=== PATIENT | male | born 1950 | race Caucasian/White ===

== ENCOUNTER → 2016-04-17 | Outpatient (CLI) | payer MEDICARE ==
[2016-04-17 13:07] LABS: Basophils # (A) 0.1 k/uL (0-0.2); Basophils % (A) 1 %; CH 31.1; CHCM 34.1; Eosinophils # (A) 0.4 k/uL (0-0.7); Eosinophils % (A) 4 %; HDW 2.68; HGB 15.2 gm/dL (13.0-17.5); Luc # (Auto) 0.26; Luc % (Auto) 3; Lymphocytes # (A) 2.4 k/uL (1.0-4.8); Lymphocytes % (A) 27 %; MCH 30.9 pg (25.0-35.0); MCHC 33.8 g/dL (31.0-37.0); MCV 91.5 fL (80.0-100.0); Mean Platelet Volume 6.7; Monocytes # (A) 0.5 k/uL (0-1.0); Monocytes % (A) 5 %; Neutrophils # (A) 5.3 k/uL (1.3-7.7); Neutrophils % (A) 60 %; RBC 4.91 m/uL (4.30-5.90); RDW 12.6 % (11.5-15.5); WBC 8.8 k/uL (3.8-10.6); WBC (Perox) 9.11
[2016-04-17 13:24] LABS: Blood Urea Nitrogen 18 mg/dL (9-20); Non-African American GFR(MDRD) >60 (>60 ml/min/1.73 sqM)
== END | disposition home or self-care (01) ==
LOC: LABWHC1 12:27
PROVIDERS: ATTEND Surgery
DX: K57.92 Diverticulitis of intestine, part unspecified, without perforation or abscess without bleeding (principal)
CPT/HCPCS: 36415; 82565; 84520; 85025

== ENCOUNTER → 2016-04-18 | Outpatient (CLI) | payer MEDICARE ==
--- NOTE | 2016-04-18 14:22 | CT ---
EXAMINATION TYPE: CT abdomen pelvis w con DATE OF EXAM: 04/18/2016 2:06 PM COMPARISON: NONE HISTORY: 65-year-old male with intermittent abdominal pain x1 year, diverticulitis. TECHNIQUE: Contiguous axial scanning of the abdomen and pelvis following administration of 100 ml Omn ipaque 300 IV contrast. Delayed images through the kidneys and coronal/sagittal reconstructions perf ormed. CT DLP: 1575 mGycm Automated exposure control for dose reduction was used. FINDINGS: Heart is normal size with upper cardial effusion. Lung bases clear without pleural effusion. Liver is mildly enlarged at 18.0 cm craniocaudal. There is diffuse low attenuation of the hepatic par enchyma with some fatty sparing along the gallbladder fossa. Portal venous system is patent. No bilia ry ductal dilatation. Gallbladder, adrenal glands, and pancreas appear within normal limits. Tiny subcentimeter hypodensiti es within the peripheral spleen are too small for accurate CT characterization, possible tiny cysts. Spleen otherwise unremarkable. No dilated small bowel, free fluid, or free air. There may be mild wall thickening of proximal jejunal loops, for example, axial image 41, 47, and 49. No small bowel dilatation, free fluid, or free air. Normal appendix. Oral contrast has progressed to the splenic flexure. There is mild left hemicolonic diverticulosis. Mild focal rounded area of fat stranding along the lef t lateral aspect of the lower descending colon, axial image 59. Small fatty umbilical hernia. No mesenteric or retroperitoneal lymphadenopathy. There is soft tissue reticulation and increased soft tissue density within the subcutaneous fat of th e lower abdomen on either side suggesting subcutaneous injections. Very mild circumferential bladder wall thickening is noted. Prostate gland is enlarged at 5.0 cm wide . Small fat-containing inguinal hernias on either side. No abnormal fluid collection in the pelvis or pelvic lymphadenopathy seen. Bones: Post surgical changes of L2-L3 posterior fusion on the right with interbody fusion as well. No osseous destructive process. IMPRESSION: 1. MILD HEPATOMEGALY. ADDITIONAL HEPATIC STEATOSIS. CORRELATE WITH LFT's, LIPID PROFILE, AND PATIENT RISK FACTORS. 2. SOME CIRCUMFERENTIAL THICKENING OF PROXIMAL JEJUNAL LOOPS COULD BE SECONDARY TO UNDERDISTENTION OR ENTERITIS. 3. SMALL FOCAL ROUNDED AREA OF INFLAMMATION ALONG THE LEFT LATERAL ASPECT OF THE LOWER DESCENDING COL ON. FINDINGS SUSPICIOUS FOR EPIPLOIC APPENDAGITIS. 4. MILD LEFT HEMICOLONIC DIVERTICULOSIS WITHOUT ACUTE DIVERTICULITIS. 5. PROSTATOMEGALY (5.0 CM WIDE). MILD CIRCUMFERENTIAL BLADDER WALL THICKENING COULD REPRESENT BLADDER WALL HYPERTROPHY OR CYSTITIS.
== END | disposition home or self-care (01) ==
LOC: RADCTMAIN 13:19
PROVIDERS: ATTEND Surgery
DX: R16.0 Hepatomegaly, not elsewhere classified (principal); K76.0 Fatty (change of) liver, not elsewhere classified; K59.8 Other specified functional intestinal disorders; K52.9 Noninfective gastroenteritis and colitis, unspecified; K57.90 Diverticulosis of intestine, part unspecified, without perforation or abscess without bleeding; N32.89 Other specified disorders of bladder
CPT/HCPCS: 74177; Q9967

== ENCOUNTER → 2016-06-05 | Outpatient (CLI) | payer MEDICARE ==
[2016-06-05 14:33] LABS: Basophils # (A) 0.1 k/uL (0-0.2); Basophils % (A) 1 %; CH 31.5; CHCM 34.4; Eosinophils # (A) 0.4 k/uL (0-0.7); Eosinophils % (A) 6 %; HCT 39.2 % (39.0-53.0); HGB 13.5 gm/dL (13.0-17.5); Luc # (Auto) 0.17; Luc % (Auto) 2; Lymphocytes # (A) 2.1 k/uL (1.0-4.8); Lymphocytes % (A) 28 %; MCH 31.6 pg (25.0-35.0); MCHC 34.3 g/dL (31.0-37.0); Mean Platelet Volume 7.9; Monocytes # (A) 0.3 k/uL (0-1.0); Monocytes % (A) 4 %; Neutrophils # (A) 4.4 k/uL (1.3-7.7); Neutrophils % (A) 59 %; RBC 4.26 m/uL (4.30-5.90); RDW 12.5 % (11.5-15.5); WBC 7.5 k/uL (3.8-10.6); WBC (Perox) 7.61
== END | disposition home or self-care (01) ==
LOC: LABWHC1 13:54
PROVIDERS: ATTEND Surgery
DX: R19.7 Diarrhea, unspecified (principal)
CPT/HCPCS: 36415; 85025; 87324

== ENCOUNTER → 2016-08-16 | Outpatient (CLI) | payer MEDICARE ==
[2016-08-16 07:56] LABS: Basophils # (A) 0.1 k/uL (0-0.2); Basophils % (A) 1 %; CH 31.7; CHCM 35.3; Eosinophils # (A) 0.5 k/uL (0-0.7); Eosinophils % (A) 7 %; HCT 42.8 % (39.0-53.0); HDW 2.85; Luc # (Auto) 0.15; Luc % (Auto) 2; Lymphocytes # (A) 1.9 k/uL (1.0-4.8); Lymphocytes % (A) 27 %; MCH 31.5 pg (25.0-35.0); Mean Platelet Volume 6.9; Monocytes # (A) 0.3 k/uL (0-1.0); Monocytes % (A) 5 %; Neutrophils # (A) 4.2 k/uL (1.3-7.7); Neutrophils % (A) 59 %; RBC 4.76 m/uL (4.30-5.90); RDW 12.8 % (11.5-15.5); WBC 7.1 k/uL (3.8-10.6); WBC (Perox) 7.19
[2016-08-16 08:10] LABS: ALT 43 U/L (21-72); AST 25 U/L (17-59); Alkaline Phosphatase 87 U/L (38-126); Anion Gap 10 mmol/L; Blood Urea Nitrogen 17 mg/dL (9-20); Calcium 9.1 mg/dL (8.4-10.2); Carbon Dioxide 26 mmol/L (22-30); Chloride 105 mmol/L (98-107); Cholesterol 165 mg/dL (<200); Glucose 156 mg/dL (74-99); HDL Cholesterol 38 mg/dL (40-60); Non-African American GFR(MDRD) >60 (>60 ml/min/1.73 sqM); Potassium 4.9 mmol/L (3.5-5.1); Sodium 141 mmol/L (137-145); Total Bilirubin 0.5 mg/dL (0.2-1.3); Total Protein 7.1 g/dL (6.3-8.2); Triglycerides 315 mg/dL (<150)
[2016-08-16 11:39] LABS: Hemoglobin A1C 7.1 % (4.2-6.1)
== END | disposition home or self-care (01) ==
LOC: LABWHC1 07:31
PROVIDERS: ATTEND Family Medicine
DX: E11.65 Type 2 diabetes mellitus with hyperglycemia (principal); E83.41 Hypermagnesemia; I10 Essential (primary) hypertension
CPT/HCPCS: 36415; 80053; 80061; 83036; 84443; 85025

== ENCOUNTER → 2016-10-24 | Outpatient (CLI) | payer MEDICARE ==
--- NOTE | 2016-10-24 16:02 | CONS ---
DATE OF CONSULTATION: 10/24/16 65 year old gentleman has been evaluated in the Sleep Center for possible obstructive sleep apnea hypopnea syndrome. History of present illness/Sleep wake evaluation: SLEEP SCHEDULE: The patient usual sleep schedule at the present time, ( ) he is retired from 9:30 p.m until 6:30 a.m. FALLING ASLEEP: No problems with falling asleep. He has t.v. set in bedroom. DURING SLEEP: Sleeps in different positions with his . According to her, he snores and has episodes of stopped breathing during sleep. He is grinding teeth, wakes up with dry mouth, palpitations, heartburn, gasping for air, restless legs, sweating, nocturia up to three times at night. DURING THE DAY/WAKE STATE: In the morning, the patient wakes up tired, has difficulties to pay attention, falling asleep during the day, worries about his sleep, ( ) irritability, claustrophobia. [place] sleep scale significantly increased to 22. Past medical history positive for diabetes, hypertension, acid reflux, ulcers in the stomach with bleeding, nasal breathing problems. Past surgical history: L2, L3 fusion surgery, rotator cuff surgery. Medications: 1. Januvia. 2. Glucophage. 3. Lisinopril. 4. Omeprazole. 5. Humalog. 6. Levemir. 7. Baby aspirin. 8. Flonase. 9. Nicorette. Social history: Negative for smoking. Alcohol consumption very rarely. Family history: Hypertension, angina, heart problems, hyperlipidemia, arthritis , cancer, diabetes, thyroid problems, restless legs. REVIEW OF SYSTEMS: No fevers. No double vision. No recent chest pain. No shortness of breath. No abdominal pain. No bleeding episodes. No blood in urine. No seizure episodes. During physical exam, 55 year old gentleman without distress. BP 144 /71. HR 68, RR 16, height 5 feet 4 inches, weight 216. BMI 37. Neck 16.5 inches in circumference. Temperature 98.2. Oxygen saturation 96%. Oropharynx extremely low position of soft palate. Retrognathia 2 to 3 mm. Restriction of nasal bleeding. Abdomen obese. Extremities very minimal up to 1+ ankle edema on the left. NECK: Supple. No JVD. Thyroid is not palpable. LUNGS: Clear to auscultation and percussion. Good air exchange. No wheezing or rhonchi. HEART: S1, S2 regular. No murmurs, gallops or rubs. TURNAROUND ENGINEER: Awake, alert and oriented times three. Cranial nerves 2 thru 7 intact. There is no fasciculation or atrophy noted. No focal deficits observed. Other physical examination normal. IMPRESSION: 1. Snoring, witness episodes of stopped breathing during sleep. Extremely low position of soft palate. Significant excessive daytime sleepiness, wide neck, obstructive sleep apnea, hypopnea syndrome. 2. Obesity, BMI 37.0. 3. Diabetes mellitus. 4. Hypertension. 5. Acid reflux. 6. History of stomach ulcers with bleeding. 7. Restriction of nasal breathing. 8. Status post L2, L3 fusion surgery. 9. Status post rotator cuff surgery on the right side about 10 years ago. PLAN: 1. Polysomnography for evaluation of patient's breathing during sleep. 2. CPAP/BIPAP titration if sleep study confirms obstructive sleep apnea/ hypopnea syndrome. 3. Preferable position during sleep on the side. 4. No driving if feels any sleepiness. Patient is aware of civil and criminal liability for unsafe driving. 5. I will see the patient for follow up visit to explain the results of the testing and following plan. Sincerely, Leonides Anton MD, PhD, FAASM. Diplomat of [place] [employer]. Sleep Medicine Board by [place] [employer] [place] [employer]. Manager Heavy Duty of [facility] [place]. VIDA
== END | disposition home or self-care (01) ==
LOC: SLEEP 14:18
PROVIDERS: ATTEND Internal Medicine
DX: G47.33 Obstructive sleep apnea (adult) (pediatric) (principal); G47.10 Hypersomnia, unspecified; E11.9 Type 2 diabetes mellitus without complications; I10 Essential (primary) hypertension; K21.9 Gastro-esophageal reflux disease without esophagitis; E66.9 Obesity, unspecified; Z68.37 Body mass index [BMI] 37.0-37.9, adult; Z98.1 Arthrodesis status; Z79.899 Other long term (current) drug therapy; Z79.4 Long term (current) use of insulin; Z79.82 Long term (current) use of aspirin
CPT/HCPCS: 99211

== ENCOUNTER 2016-11-28 23:02 | Emergency (ER) | payer MEDICARE ==
[2016-11-28] MEDS ORDERED: HYDROmorphone 1 MG/ML 1 ML SYRINGE IVP STA (23:14)
[2016-11-28] MEDS ORDERED: ONDANSETRON 4 MG/2 ML VIAL IVP STA (23:14)
[2016-11-28] MEDS ORDERED: KETOROLAC 30 MG/ML 1 ML VIAL IVP STA (23:14)
[2016-11-28] MEDS ORDERED: SODIUM CHLORIDE 0.9% 1,000 ML IV STA (23:14)
[2016-11-28 23:50] LABS: Basophils # (A) 0.1 k/uL (0-0.2); Basophils % (A) 0 %; CH 32.1; CHCM 35.1; Eosinophils # (A) 0.4 k/uL (0-0.7); Eosinophils % (A) 3 %; HCT 42.1 % (39.0-53.0); HDW 2.73; HGB 14.2 gm/dL (13.0-17.5); Luc # (Auto) 0.16; Luc % (Auto) 1; Lymphocytes # (A) 2.4 k/uL (1.0-4.8); Lymphocytes % (A) 17 %; MCH 30.9 pg (25.0-35.0); MCHC 33.6 g/dL (31.0-37.0); MCV 91.9 fL (80.0-100.0); Mean Platelet Volume 7.8; Monocytes # (A) 0.6 k/uL (0-1.0); Monocytes % (A) 4 %; Neutrophils # (A) 10.3 k/uL (1.3-7.7); Neutrophils % (A) 74 %; RBC 4.58 m/uL (4.30-5.90); RDW 14.3 % (11.5-15.5); WBC 13.9 k/uL (3.8-10.6); WBC (Perox) 13.25
[2016-11-29 00:04] LABS: ALT 81 U/L (21-72); AST 61 U/L (17-59); Alkaline Phosphatase 84 U/L (38-126); Amylase 35 U/L (30-110); Anion Gap 14 mmol/L; Blood Urea Nitrogen 15 mg/dL (9-20); Calcium 8.9 mg/dL (8.4-10.2); Carbon Dioxide 21 mmol/L (22-30); Chloride 108 mmol/L (98-107); Glucose 248 mg/dL (74-99); Non-African American GFR(MDRD) >60 (>60 ml/min/1.73 sqM); Potassium 4.1 mmol/L (3.5-5.1); Sodium 143 mmol/L (137-145); Total Bilirubin 0.4 mg/dL (0.2-1.3); Total Protein 6.6 g/dL (6.3-8.2)
--- NOTE | 2016-11-29 00:18 | XR ---
EXAM: XR Abdomen Complete, 2 Views CLINICAL HISTORY: Abdominal pain. TECHNIQUE: Frontal view of the abdomen/pelvis with upright view of the abdomen. COMPARISON: CT dated 04/18/2016. FINDINGS: Intraperitoneal space: No evidence of free intraperitoneal air. Gastrointestinal tract: Scattered bowel gas in a nonspecific pattern. No radiographic evidence of small bowel obstruction. Small to moderate amount of stool in the colon. Bones/joints: Right-sided posterior fixation hardware at L3-4. IMPRESSION: No radiographic evidence of small bowel obstruction or free intraperitoneal air.
[2016-11-29 00:51] LABS: Appearance,Urine Cloudy (Clear); Bilirubin,Urine Negative (Negative); Glucose,Urine (UA) 4+ (Negative); Ketones,Urine Trace (Negative); Leukocyte Esterase,Urine Negative (Negative); Mucus,Urine Rare /hpf; Nitrite,Urine Negative (Negative); Particle Count 5128; Protein,Urine 1+ (Negative); RBC,Urine 105 /hpf (0-5); Specific Gravity,Urine 1.024 (1.001-1.035); Squamous Epithelial Cell,Urine <1 /hpf (0-4); UA Billing (MACRO vs. MICRO) MICRO; Urobilinogen,Urine <2.0 mg/dL (<2.0); WBC,Urine 2 /hpf (0-5)
--- NOTE | 2016-11-29 00:59 | ED ---
Abdominal Pain HPI - General Chief Complaint: Abdominal Pain Stated Complaint: Nausea/Back Pain Time Seen by Provider: 11/28/16 23:11 Source: patient, RN notes reviewed Mode of arrival: wheelchair Limitations: no limitations - History of Present Illness Initial Comments: 65-year-old male presents emergency Department chief complaint of right flank pain. Patient states that he had some nausea yesterday and developed pain today. Patient states he has a history kidney stones and feels very similar. Patient states pain is in his right flank area of his right lower. Patient denies any fever, chills. He did have some nausea vomiting. Denies any diarrhea, constipation. He states his urine has been darker than usual and more consistent when he has a stone. Patient denies any chest pain or shortness breath. Patient states nothing makes pain feel better or worse. - Related Data Previous Rx's Medication Instructions Recorded Hydrocodone/Acetaminophen [[place] 1 tab PO Q6HR PRN #20 tab 11/29/16 5-325] Ondansetron Odt [Zofran Odt] 4 mg PO Q8HR PRN #10 tab 11/29/16 Tamsulosin [Flomax] 0.4 mg PO DAILY #7 cap 11/29/16 Allergies Allergy/AdvReac Type Severity Reaction Status Date / Time No Known Allergies Allergy Verified 11/28/16 23:09 Review of Systems ROS Statement: Those systems with pertinent positive or pertinent negative responses have been documented in the HPI. ROS Other: All systems not noted in ROS Statement are negative. Past Medical History Past Medical History: Diabetes Mellitus, Hypertension Additional Past Medical History / Comment(s): kidney stones History of Any Multi-Drug Resistant Organisms: None Reported Past Surgical History: Back Surgery Additional Past Surgical History / Comment(s): left shoulder Past Psychological History: No Psychological Hx Reported Smoking Status: Never smoker Past Alcohol Use History: None Reported Past Drug Use History: None Reported General Exam Limitations: no limitations General appearance: alert, in no apparent distress Head exam: Present: atraumatic, normocephalic, normal inspection Respiratory exam: Present: normal lung sounds bilaterally. Absent: respiratory distress, wheezes, rales, rhonchi, stridor Cardiovascular Exam: Present: regular rate, normal rhythm, normal heart sounds. Absent: systolic murmur, diastolic murmur, rubs, gallop, clicks GI/Abdominal exam: Present: soft, normal bowel sounds. Absent: distended, tenderness, guarding, rebound, rigid Back exam: Present: CVA tenderness (R) (minimal). Absent: CVA tenderness (L) Course Vital Signs 11/28/16 23:02 Temperature 97.7 F Pulse Rate 47 L Respiratory 18 Rate Blood Pressure 183/81 O2 Sat by Pulse 98 Oximetry Medical Decision Making - Medical Decision Making 65-year-old male presented emergency from for right flank pain. Patient has a history kidney stones. Patient does have hematuria noted on urinalysis. There is no ddefinite stone on x-ray though his symptoms are consistent with ureteral calculi. Patient is improved after pain medication. Patient's vitals are stable. Patient be discharged with pain medication. Return parameters were discussed. - Lab Data Result diagrams: 11/28/16 23:35 11/28/16 23:35 Lab Results 11/28/16 11/28/16 11/29/16 Range/Units 23:35 23:35 00:28 WBC 13.9 H (3.8-10.6) k/uL RBC 4.58 (4.30-5.90) m/uL Hgb 14.2 (13.0-17.5) gm/dL Hct 42.1 (39.0-53.0) % MCV 91.9 (80.0-100.0) fL MCH 30.9 (25.0-35.0) pg MCHC 33.6 (31.0-37.0) g/dL RDW 14.3 (11.5-15.5) % Plt Count 172 (150-450) k/uL Neutrophils % 74 % Lymphocytes % 17 % Monocytes % 4 % Eosinophils % 3 % Basophils % 0 % Neutrophils # 10.3 H (1.3-7.7) k/uL Lymphocytes # 2.4 (1.0-4.8) k/uL Monocytes # 0.6 (0-1.0) k/uL Eosinophils # 0.4 (0-0.7) k/uL Basophils # 0.1 (0-0.2) k/uL Sodium 143 (137-145) mmol/L Potassium 4.1 (3.5-5.1) mmol/L Chloride 108 H (98-107) mmol/L Carbon Dioxide 21 L (22-30) mmol/L Anion Gap 14 mmol/L BUN 15 (9-20) mg/dL Creatinine 0.90 (0.66-1.25) mg/dL Est GFR (MDRD) Af Amer >60 (>60 ml/min/1.73 sqM) Est GFR (MDRD) Non-Af >60 (>60 ml/min/1.73 sqM) Glucose 248 H (74-99) mg/dL Calcium 8.9 (8.4-10.2) mg/dL Total Bilirubin 0.4 (0.2-1.3) mg/dL AST 61 H (17-59) U/L ALT 81 H (21-72) U/L Alkaline Phosphatase 84 (38-126) U/L Total Protein 6.6 (6.3-8.2) g/dL Albumin 4.1 (3.5-5.0) g/dL Amylase 35 (30-110) U/L Lipase 101 (23-300) U/L Urine Color Yellow Urine Appearance Cloudy (Clear) Urine pH 5.0 (5.0-8.0) Ur Specific [place] 1.024 (1.001-1.035) Urine Protein 1+ H (Negative) Urine Glucose (UA) 4+ H (Negative) Urine Ketones Trace H (Negative) Urine Blood Large H (Negative) Urine Nitrite Negative (Negative) Urine Bilirubin Negative (Negative) Urine Urobilinogen <2.0 (<2.0) mg/dL Ur Leukocyte Esterase Negative (Negative) Urine RBC 105 H (0-5) /hpf Urine WBC 2 (0-5) /hpf Ur Squamous Epith Cells <1 (0-4) /hpf Urine Mucus Rare H (None) /hpf Disposition Clinical Impression: Kidney stone, Hematuria, Right flank pain Disposition: HOME SELF-CARE Condition: Stable Instructions: Kidney Stones (ED) Additional Instructions: Please return to the Emergency Department if symptoms worsen or any other concerns. Prescriptions: Hydrocodone/Acetaminophen [[place] 5-325] 1 tab PO Q6HR PRN #20 tab PRN Reason: Pain Ondansetron Odt [Zofran Odt] 4 mg PO Q8HR PRN #10 tab PRN Reason: Nausea Tamsulosin [Flomax] 0.4 mg PO DAILY #7 cap Referrals: Areli Owens MD [Primary Care Provider] - 1-2 days Time of Disposition: 00:58
[2016-11-29] MEDS ORDERED: TAMSULOSIN 0.4 MG CAP.ER.24H PO STA (01:01)
[2016-11-29] MEDS ORDERED: HYDROmorphone 1 MG/ML 1 ML SYRINGE IVP STA (01:02)
[2016-11-29 01:21] VITALS: BP 165/83; PULSE 52; RESP 16; TEMP 98
== END 2016-11-29 01:31 | disposition home or self-care (01) ==
LOC: EC 23:02
DX: N20.0 Calculus of kidney (principal)
CPT/HCPCS: 36415; 80053; 82150; 83690; 85025; 81001; 74000; 99284; 96374; 96375 ×2; 96376; 96361; J2405; J1885; J1170 ×2

== ENCOUNTER → 2018-03-25 | Outpatient (CLI) | payer MEDICARE ==
--- NOTE | 2018-03-25 16:41 | PN ---
PROGRESS NOTE DATE OF SERVICE: 03/25/2018. 67-year-old gentleman has been followed in Sleep Center for treatment of obstructive sleep apnea-hypopnea syndrome. The patient continued to use his CPAP equipment every night for the whole night. He reports that sometimes he has leak from his full face mask from the area of nasal breach. He does feel sleepy during the day. [place] Sleepiness Scale significantly increased to 20 and he fell asleep today while in the waiting area. I checked his CPAP unit. CPAP pressure is 13.6 cm of water. Usage is 25/30 nights and 24/30 nights more than 4 hours. Average usage is 6.8 hours. Leak is only 5 L/minute, but patient reported that as soon as he feels the leak, he right away adjusting his mask. Apnea-hypopnea index is 3.1, which is absolutely normal. MEDICATIONS: Glucophage, Januvia, metformin, lisinopril, omeprazole, Humalog, baby aspirin, Levemir, Flonase. PHYSICAL EXAM: Patient in no distress. BP 127/82, HR 92, RR 16, height 64 inches, weight 218.6 pounds, body mass index 37.4. Weight is about 3 pounds more than 1 year ago. Temperature 98.3, oxygen saturation at room air 94% on room air. Oropharynx extremely low position of soft palate. ABDOMEN: Obese. Neck Supple, no JVD. Thyroid is not palpable. LUNGS Clear to percussion and to auscultation. Good air exchange. No wheezing or rhonchi. HEART S1, S2 regular. No murmurs, gallops, or rubs. ABDOMEN: Obese. Soft and nontender. Bowel sounds are present. No organomegaly appreciated. EXTREMITIES No clubbing or cyanosis. MANAGEMENT PLANNER Awake, alert, and oriented X3. Cranial nerves 2 to 7 intact. There is no fasciculation or atrophy. noted. No focal deficits observed. IMPRESSION: 1. Obstructive sleep apnea-hypopnea syndrome. The patient demonstrated great compliance with treatment benefitting from treatment. 2. Excessive daytime sleepiness. [place] Sleepiness Scale increased to 20 even while patient is using his CPAP equipment every night. Differential diagnosis should include additional diagnosis of hypersomnia. 3. Obesity, body mass index 37.4. 4. Diabetes mellitus. 5. Hypertension. 6. Acid reflux. 7. History of peptic ulcer disease. 8. Severe periodic limb movements during titration and during diagnostic night. PLAN: 1. Continue treatment with CPAP every night. 2. We will fit patient with a different type of full-face mask Dream Wear. 3. I will start the patient on Mirapex smallest dose at bedtime for prevention of periodic limb movements, which possibly could be the reason for his daytime sleepiness. 4. No driving if feeling sleepiness. 5. If patient will continue to have sleepiness during the day, we may consider to proceed with multiple sleep latency test for objective evaluation of his sleepiness and subsequently with treatment with small amount of daytime alerting agent. Thank you very much for allowing me to participate in management of your patient. Sincerely, Leonides Anton MD, PhD, FAASM Diplomat of [place] [employer] [place] [employer] Stave Bolt Equalizer of [facility] [place] DONNA / PEBBLES: [id number] /
== END | disposition home or self-care (01) ==
LOC: SLEEP 14:51
PROVIDERS: ATTEND Internal Medicine
DX: G47.33 Obstructive sleep apnea (adult) (pediatric) (principal); E66.9 Obesity, unspecified; E11.9 Type 2 diabetes mellitus without complications; I10 Essential (primary) hypertension; K21.9 Gastro-esophageal reflux disease without esophagitis; G47.61 Periodic limb movement disorder; Z68.37 Body mass index [BMI] 37.0-37.9, adult; Z99.89 Dependence on other enabling machines and devices; Z87.11 Personal history of peptic ulcer disease; Z79.84 Long term (current) use of oral hypoglycemic drugs; Z79.899 Other long term (current) drug therapy; Z79.4 Long term (current) use of insulin; Z79.82 Long term (current) use of aspirin

== ENCOUNTER → 2019-04-01 | Outpatient (CLI) | payer BC, MEDICARE ==
--- NOTE | 2019-04-01 16:13 | PN ---
PROGRESS NOTE DATE OF SERVICE: 04/01/2019 This patient is a 68-year-old gentleman who has been followed in Sleep Center for treatment of obstructive sleep apnea-hypopnea syndrome. Patient continues to use his CPAP equipment every night for the whole night. Sometimes he has episodes of snoring and he remembers episodes of awakenings from sleep . [place] Sleepiness Scale today is 15. I checked his CPAP unit. Range of the pressure is from 7.2 to 15 cm of water with average pressure 13.2 cm of water. Leak is only 4 L/minute. Usage is 30/30 nights for more than 4 hours, with average usage is 7.5 hours. Apnea-hypopnea index is only 2.0 for the last month, which is absolutely normal. For the last year, usage is 345/365 nights. Leak is 2 L/minute. Apnea-hypopnea index is again 2.5, which is perfect. MEDICATIONS: 1. Glucophage. 2. Januvia. 3. Metformin. 4. Lisinopril. 5. Omeprazole. 6. Humalog. 7. Levemir. 8. Baby aspirin. 9. Flonase. PHYSICAL EXAMINATION: GENERAL: A pleasant patient in no distress. VITAL SIGNS: BP 155/81, HR 61, RR 16. Height 5 feet 5 inches, weight 231.0, body mass index 38.4. Temperature 98.5. HEENT: PERRLA, EOMI. Evaluation of oropharynx showed tongue protrudes midline. Extremely low position of soft palate. Mallampati IV. NECK: Supple. No JVD. Thyroid is not palpable. LUNGS: Clear to percussion and to auscultation. Good air exchange. No wheezing or rhonchi. HEART: S1, S2 regular. No murmurs, gallops or rubs. ABDOMEN: Slightly obese. EXTREMITIES: No clubbing or cyanosis. NEUROPSYCHOLOGIST: Awake, alert, and oriented X3. Cranial nerves 2 to 7 intact. There is no fasciculation or atrophy. noted. No focal deficits observed. IMPRESSION: 1. Obstructive sleep apnea-hypopnea syndrome. Patient has demonstrated great compliance with treatment, benefitting from treatment. 2. Some excessive daytime sleepiness by [place] Sleepiness Scale, and it also has been present during his previous visit. 3. Obesity. 4. Diabetes mellitus. 5. Hypertension. 6. Acid reflux. 7. History of peptic ulcer disease. 8. Severe periodic limb movements during diagnostic night and titration night. PLAN: 1. Patient will continue to use CPAP equipment every night. 2. I will increase maximal pressure to 16 cm of water. 3. Losing weight. (The patient's weight increased by about 13 pounds since his previous visit.). 4. Sleep hygiene with regular time in bed for at least 7-1/2 hours. 5. If the patient continues to have symptoms of excessive daytime sleepiness, we will consider proceeding with a CPAP night followed by a multiple sleep latency test for objective evaluation of patient's symptoms of excessive daytime sleepiness, and then possibly treatment with medication for that. Thank you very much for allowing me to participate in the management of your patient. Sincerely, Leonides Anton MD, PhD, FAASM Diplomat of [place] [employer] [place] [employer] Reception Manager of [facility] [place] MMODL / YOLYN: [phone] /
== END | disposition home or self-care (01) ==
LOC: SLEEP 14:54
PROVIDERS: ATTEND Internal Medicine
DX: G47.33 Obstructive sleep apnea (adult) (pediatric) (principal); E11.9 Type 2 diabetes mellitus without complications; I10 Essential (primary) hypertension; K21.9 Gastro-esophageal reflux disease without esophagitis; E66.9 Obesity, unspecified; Z87.19 Personal history of other diseases of the digestive system; Z99.89 Dependence on other enabling machines and devices; Z79.891 Long term (current) use of opiate analgesic; Z79.899 Other long term (current) drug therapy; Z79.82 Long term (current) use of aspirin; Z79.4 Long term (current) use of insulin; Z79.84 Long term (current) use of oral hypoglycemic drugs

== ENCOUNTER → 2020-01-20 | Outpatient (CLI) | payer MEDICARE ==
--- NOTE | 2020-01-20 12:09 | SFUN ---
SLEEP CENTER FOLLOW UP NOTE DATE OF SERVICE: 01/20/2020 A 69-year-old gentleman who has been followed in the Sleep Center for treatment of obstructive sleep apnea-hypopnea syndrome. Patient continued to use CPAP equipment, but referred that sometimes his machine stopped in the middle of the night, even while using his machine he continued to feel significant sleepiness. [place] Sleepiness Scale today is a very high range of 21. I checked his CPAP unit. Range of the pressure from 7.6-14.8 with an average pressure is 12.7, usage /30 nights and 20/30 nights for more than 4 hours with leak 10 L/minute. Apnea-hypopnea index only 1.1, which is absolutely normal. MEDICATIONS: Glucophage, Januvia, metformin, lisinopril, omeprazole, Humalog, Levemir, Flonase. PHYSICAL EXAM: gentleman without distress, BP 120/66, HR 58, RR 16, height 5, 5, weight 230, which is about the same as 1 year ago. BMI 38.1, temperature 97.9, oxygen saturation at room air 97%. OROPHARYNX: Extremely low position of soft palate. Mallampati 4. ABDOMEN: Obese. NECK: Supple, no JVD. Thyroid is not palpable. LUNGS: Clear to percussion and to auscultation. Good air exchange. No wheezing or rhonchi. HEART: S1, S2 regular. No murmurs, gallops, or rubs. EXTREMITIES: No clubbing or cyanosis. PATIENT EXPERIENCE COORDINATOR: Awake, alert, and oriented X3. Cranial nerves 2 to 7 intact. There is no fasciculation or atrophy. noted. No focal deficits observed. IMPRESSION: 1. Obstructive sleep apnea-hypopnea syndrome in moderate range. I reviewed results of previous sleep study. Apnea-hypopnea index 18. Patient demonstrated borderline compliance with treatment, benefitting from treatment. 2. Patient continued to feel sleepiness during the day. [place] Sleepiness Scale is 21, which is in very high range. Differential diagnosis include additional diagnosis of hypersomnia. 3. Obesity. 4. Diabetes mellitus. 5. Hypertension. 6. Acid reflux. 7. History of peptic ulcer disease. 8. Severe periodic limb movements during the previous sleep study. PLAN: 1. Patient will continue to use PAP equipment every night for the whole night. 2. Sleep hygiene with regular time in bed for at least 7-1/2 to 8 hours. 3. Precautions related to driving. No driving if feeling sleepiness. 4. I will maintain all necessary prescription for PAP supplies including mask, tube, filters. 5. Watching weight. 6. No driving if feeling sleepiness. 7. Follow-up visit in 6 months or earlier if patient has any problems. 8. Prescription for Mirapex for prevention of periodic limb movements. 9. CPAP at night for evaluation, fitting of the mask and with the following multiple sleep latency test for objective evaluation patient has symptoms of excessive daytime sleepiness for differential diagnosis will pass for hypersomnia. Thank you very much for allowing me to participate in the management of your patient. Sincerely, Leonides Anton MD, PhD, FAASM Diplomat of [place] Board of Medical Specialties [employer] [place] Board of Internal Medicine Social Sciences Lecturer of [facility] [place] [email or web address] / YOLYN: [id number] /
== END | disposition home or self-care (01) ==
LOC: SLEEP 10:01
PROVIDERS: ATTEND Internal Medicine
DX: G47.33 Obstructive sleep apnea (adult) (pediatric) (principal); G47.61 Periodic limb movement disorder; E11.9 Type 2 diabetes mellitus without complications; I10 Essential (primary) hypertension; K21.9 Gastro-esophageal reflux disease without esophagitis; E66.9 Obesity, unspecified; Z87.11 Personal history of peptic ulcer disease; Z99.89 Dependence on other enabling machines and devices; Z79.83 Long term (current) use of bisphosphonates; Z79.4 Long term (current) use of insulin

== ENCOUNTER → 2020-04-05 | Outpatient (CLI) | payer MEDICARE ==
--- NOTE | 2020-04-05 13:27 | SFUN ---
SLEEP CENTER FOLLOW UP NOTE DATE OF SERVICE: 04/05/2020 This 69-year-old gentleman who has been followed in Sleep Center for treatment of obstructive sleep apnea-hypopnea syndrome and significant excessive daytime sleepiness. The patient continued to feel sleepy today. His [place] Sleepiness Scale is 15. Recently, we proceeded with a night on CPAP which showed absolutely normal breathing. Apnea-hypopnea index 0.2 with the following multiple sleep latency test, which showed mean sleep latency short only 5.8 minutes, but no REM sleep period had been documented. Test also showed significant amount of periodic limb movements of 53.9 per hour, but very small amount of microarousals from the 0.6 per hour, diabetes mellitus, also increased risk for periodic limb movements. The patient continued to use his CPAP equipment every night for the whole night. I checked CPAP unit in the automatic regimen range of the pressure 9-13.8, average pressure 12.8, usage 28 out of 30 nights for more than 4 hours. Average usage is 6.9 hours. Otherwise, patient using machine every night. Leak is only 4 L/minute, which is perfect. Apnea-hypopnea index only 1.2, which is also perfect. MEDICATIONS: Glucophage, Januvia, metformin, lisinopril, omeprazole, Humalog, Levemir, Flonase, aspirin. PHYSICAL EXAMINATION: GENERAL: Patient in no distress. VITAL SIGNS: BP 148/70, HR 70, RR 15, height 5 feet 5 inches, weight 232, BMI 38.6, temperature 98.4, oxygen saturation at room air 100%. HEENT: PERRLA, EOMI. Oropharynx extremely low position of soft palate. Mallampati 4. NECK: Supple, no JVD. Thyroid is not palpable. LUNGS: Clear to percussion and to auscultation. Good air exchange. No wheezing or rhonchi. HEART: S1, S2 regular. No murmurs, gallops, or rubs. ABDOMEN: Obese. EXTREMITIES: No clubbing or cyanosis. LEAD JAVASCRIPT DEVELOPER: Awake, alert, and oriented X3. Cranial nerves 2 to 7 intact. There is no fasciculation or atrophy. noted. No focal deficits observed. IMPRESSION: 1. Obstructive sleep apnea-hypopnea syndrome. Patient demonstrated 100% compliance with treatment, benefitting from treatment. 2. The patient continued to feel sleepiness. [place] Sleepiness Scale today 15. Multiple sleep latency test confirmed sleepiness in the range of narcolepsy or idiopathic hypersomnia. 3. Significant periodic limb movements have been documented during the sleep study. 4. Obesity. 5. Diabetes mellitus. 6. Hypertension. 7. Acid reflux. 8. History of peptic ulcer disease. PLAN: 1. I will start patient with treatment on modafinil 200 mg once a day in the morning. 2. Patient will start Mirapex 0.125 mg 1 to 2 tablets at bedtime for periodic limb movements. 3. Patient will continue to use PAP equipment every night for the whole night. 4. Sleep hygiene with regular time in bed for at least 7-1/2 to 8 hours. 5. Precautions related to driving. No driving if feeling sleepiness. 6. I will maintain all necessary prescription for PAP supplies including mask, tube, filters. 7. Watching weight. 8. No driving if feeling sleepiness. 9. Follow-up visit in 6 months or earlier if patient has any problems. Thank you very much for allowing me to participate in management of your patient. Sincerely, Leonides Anton MD, PhD, FAASM Diplomat of [place] [employer] [place] [employer] Android Developer of [facility] [place] MMODL / IJN: [id number] /
== END | disposition home or self-care (01) ==
LOC: SLEEP 10:54
PROVIDERS: ATTEND Internal Medicine
DX: G47.33 Obstructive sleep apnea (adult) (pediatric) (principal); G47.61 Periodic limb movement disorder; E66.9 Obesity, unspecified; E11.9 Type 2 diabetes mellitus without complications; I10 Essential (primary) hypertension; K21.9 Gastro-esophageal reflux disease without esophagitis; Z87.11 Personal history of peptic ulcer disease; Z99.89 Dependence on other enabling machines and devices

== ENCOUNTER → 2020-08-30 | Outpatient (CLI) | payer MEDICARE ==
--- NOTE | 2020-08-30 23:38 | SFUN ---
SLEEP CENTER FOLLOW UP NOTE DATE OF SERVICE: 08/30/2020. 69-year-old gentleman has been followed in Sleep Center for treatment of obstructive sleep apnea-hypopnea syndrome. During the previous visit because of sleepiness, I recommended the patient to start treatment with modafinil, started with a very low dose, slowly increased the dose to the goal to prevent the sleepiness. He tried to do that. He started with half of the tablets of 200 mg for several days, but then when he switched to 200 mg in the morning he developed headaches and that headache did not go away, so he stopped using medication. He was tried also with Mirapex for periodic limb movements, but he did not feel better with Mirapex and Mirapex also has been stopped. Patient continued to use his CPAP equipment every night for the whole night. Sleeps well, able to manage his sleepiness during the day without any significant problems, although [place] Sleepiness Scale today is 17. I checked his CPAP unit. Range of the pressure 7-15, average pressure 13.6, usage 24 out of 30 nights and 21 out of 30 nights for more than 4 hours. Leak is only 5 L/minute which is perfect. Apnea-hypopnea index is 3.4, which is totally normal. MEDICATIONS: Levemir, NovoLog, aspirin 81 mg once a day. Januvia 100 mg once a day. Rosuvastatin 5 mg once a day, lisinopril 20 mg once a day. Flomax 0.4 mg once a day. PHYSICAL EXAMINATION: GENERAL: Patient in no distress. BP 149/68, HR 68, RR 15, height 5 feet 4-1/2 inches, weight 232 pounds. Body mass index 39.2, temperature 97.5, oxygen saturation at room air 97%. Oropharynx extremely low position of soft palate. Mallampati IV. NECK: Supple, no JVD. Thyroid is not palpable. LUNGS: Clear to percussion and to auscultation. Good air exchange. No wheezing or rhonchi. HEART: S1, S2 regular. No murmurs, gallops, or rubs. ABDOMEN: Obese. Soft and nontender. Bowel sounds are present. No organomegaly appreciated. EXTREMITIES: No clubbing or cyanosis. UNIFORM CAP OPERATOR: Awake, alert, and oriented X3. Cranial nerves 2 to 7 intact. There is no fasciculation or atrophy. noted. No focal deficits observed. IMPRESSION: 1. Obstructive sleep apnea-hypopnea syndrome. Patient demonstrated great compliance with treatment benefitting from treatment. Patient continued to have episodes of sleepiness but able to manage his alertness during the day without any additional medications, on modafinil developed headache. 2. Significant periodic limb movements during the sleep study. Treatment with Mirapex. The patient did not like, did not feel well and on the next day, Mirapex was stopped. 3. Obesity. 4. Diabetes mellitus. 5. Hypertension. 6. Acid reflux. 7. History of peptic ulcer disease. PLAN: 1. Patient will continue to use PAP equipment every night for the whole night. 2. Sleep hygiene with regular time in bed for at least 7-1/2 to 8 hours. 3. Precautions related to driving. No driving if feeling sleepiness. 4. I will maintain all necessary prescription for PAP supplies including mask, tube, filters. 5. Watching weight. 6. Follow-up visit in 6 months or earlier if patient has any problems. Thank you very much for allowing me to participate in management of your patient. Sincerely, Leonides Anton MD, PhD, FAASM Diplomat of [place] [employer] [place] [employer] Slot Machine Repairer of [facility] [place] MMODL / IJN: [id number] /

== ENCOUNTER → 2020-11-22 | Outpatient (CLI) | payer MEDICARE ==
--- NOTE | 2020-11-22 10:44 | CT ---
EXAMINATION TYPE: CT abdomen pelvis wo con DATE OF EXAM: 11/22/2020 COMPARISON: CT 04/18/2016 HISTORY: Renal colic CT DLP: 1472 mGycm Automated exposure control for dose reduction was used. TECHNIQUE: Helical acquisition of images from the lung bases through the pelvis. FINDINGS: Lack of intravenous contrast could compromise sensitivity. Increased attenuation within the subcutaneous fat along anterior abdominal wall at the level of the skin inferiorly may be due to bal e local cellulitis, edema. There is an umbilical hernia containing fat. LUNG BASES: No significant ab normality is appreciated. AORTA: No significant abnormality is appreciated. LIVER/GB: Low-attenuation within the liver is likely due to hepatic steatosis. Gallbladder is within normal limits.. PANCREAS: No significant abnormality is seen. SPLEEN: No significant abnormality is seen. ADRENALS: No significant abnormality is seen. KIDNEYS: No evident hydronephrosis or renal calculi, no evident ureteral calculus REPRODUCTIVE ORGANS: Prostate is enlarged. URINARY BLADDER: No significant abnormality is seen. BOWEL: Diverticular changes associated with the colon No evident appendicitis. FREE AIR: No Free Air is visible. ASCITES: None visible. PELVIC ADENOPATHY: None visualized. RETROPERITONEAL ADENOPATHY: No Retroperitoneal Adenopathy visible. OSSEOUS STRUCTURES: Postop changes are noted status post fusion posteriorly on the right at L2-3 wit h associated loss of disc space, there is multilevel spondylosis, degenerative disc disease in the vi sualized spine. IMPRESSION: NONCONTRAST EXAM. HEPATIC STEATOSIS. NO EVIDENT NEPHROLITHIASIS. DIVERTICULOSIS. CORRELATE FOR CELLUL ITIS ALONG THE ANTERIOR ABDOMINAL WALL. PROSTATIC HYPERTROPHY SUSPECTED. ADDITIONAL FINDINGS ABOVE.
== END | disposition home or self-care (01) ==
LOC: RADCTMAIN 09:23
PROVIDERS: ATTEND Urology
DX: K76.0 Fatty (change of) liver, not elsewhere classified (principal); N23 Unspecified renal colic
CPT/HCPCS: 74176

== ENCOUNTER → 2021-02-14 | Outpatient (CLI) | payer MEDICARE ==
--- NOTE | 2021-02-14 16:36 | MR ---
EXAMINATION TYPE: MR knee LT wo con DATE OF EXAM: 02/14/2021 COMPARISON: Outside radiograph 01/09/2021 HISTORY: 70 year-old male Left knee pain TECHNIQUE: Multiplanar, multisequence imaging of the left knee is performed without IV contrast. FINDINGS: ACL and PCL are intact. Mild edema on either side of the intact MCL. LCL complex appears intact. There is an oblique tear that extends through the posterior horn and body of the medial meniscus with mild superficial cartilage irregularity throughout the medial compartment. Some focal subchondral ma rrow reactive changes along the mid peripheral aspect of the medial tibial plateau. Some degenerative signal within the posterior horn and body of the lateral meniscus without discrete tear. Lateral compartment articular cartilage volume is maintained. Focal moderate irregular cartilage loss along the mid trochlear groove. Extensor mechanism is intact. Mild edema within the suprapatellar fat pad. Nonspecific anterior soft tissue swelling. Trace 9 mm prepatellar bursal effusion. Prominent ganglion cyst formation at the origin of the medial head gastrocnemius measuring 1.6 and 1. 3 cm. Posterior loose body within the knee joint measuring 6 mm. Normal popliteal artery anatomy and muscle bulk. Otherwise, no suspicious bone marrow replacement. IMPRESSION: 1. Small oblique tear involving the posterior horn and body of the medial meniscus. Some focal reacti ve subchondral marrow signal change involving the underlying mid peripheral aspect of the medial tibi al plateau. Mild overall degenerative change in the medial compartment. 2. Grade 1 MCL sprain. 3. Prominent ganglion cyst formation at the origin of the medial head gastrocnemius. Suspect partial tear here. 4. Anterior soft tissue swelling with early prepatellar bursitis measuring only 9 mm at this time. 5. Edema in the suprapatellar fat pad may be seen in setting of fat pad impingement syndrome. Clinica lly correlate. 6. Moderate focal irregular cartilage loss along the trochlear groove within the patellofemoral suha rtment and a 6 mm posterior loose body.
== END | disposition home or self-care (01) ==
LOC: RADMRIMAIN 12:07
PROVIDERS: ATTEND Orthopaedic Surgery
DX: S83.242A Other tear of medial meniscus, current injury, left knee, initial encounter (principal); M67.462 Ganglion, left knee; X58.XXXA Exposure to other specified factors, initial encounter

== ENCOUNTER → 2021-03-03 | Outpatient (CLI) | payer MEDICARE ==
[2021-03-03 12:22] LABS: Basophils % (A) 0 %; Eosinophils # (A) 0.4 k/uL (0-0.7); Eosinophils % (A) 5 %; HCT 40.7 % (39.0-53.0); HGB 14.1 gm/dL (13.0-17.5); Lymphocytes % (A) 24 %; MCH 31.7 pg (25.0-35.0); MCHC 34.6 g/dL (31.0-37.0); MCV 91.6 fL (80.0-100.0); Mean Platelet Volume 7.9; Monocytes # (A) 0.5 k/uL (0-1.0); Monocytes % (A) 6 %; Neutrophils # (A) 5.1 k/uL (1.3-7.7); Neutrophils % (A) 63 %; Platelet Count 155 k/uL (150-450); RBC 4.44 m/uL (4.30-5.90); RDW 12.8 % (11.5-15.5); WBC 8.2 k/uL (3.8-10.6)
[2021-03-03 12:32] LABS: Potassium 4.5 mmol/L (3.5-5.1)
== END | disposition home or self-care (01) ==
LOC: LABPAT 10:13
PROVIDERS: ATTEND Orthopaedic Surgery
DX: M23.92 Unspecified internal derangement of left knee (principal)
CPT/HCPCS: 80051; 85025; 93005

== ENCOUNTER 2021-03-22 12:58 | Day surgery (SDC) | payer MEDICARE ==
[2021-03-20 11:35] VITALS: BMI 37.0
--- NOTE | 2021-03-21 18:04 | HP ---
HISTORY AND PHYSICAL DATE OF SURGERY: 03/22/2021 Kg Garcia is a 70-year-old patient seen with progressive left knee pain. We discussed options for treatment. He elected to proceed with left knee arthroscopy. Consent was obtained. PAST MEDICAL HISTORY: Insulin-dependent diabetes, hypertension, hyperlipidemia. PAST SURGICAL HISTORY: Sinus surgery, shoulder arthroscopy, lumbar spine surgery. DAILY MEDICATIONS: Insulin, Januvia, lisinopril, rosuvastatin. ALLERGIES: NONE. SOCIAL HISTORY: He denies tobacco use. PHYSICAL EVALUATION OF THE LEFT KNEE: His range of motion is zero to 125. Mild effusion. Tenderness, medial joint line. Positive medial Joseph's. Ligaments stable. Hip rotation without pain. Distal neurovascular exam intact. Left knee radiographs revealed mild osteoarthritis. MRI left knee revealed medial meniscal tear and loose body. IMPRESSION: 1. Internal derangement of left knee with medial meniscal tear and loose body. 2. Insulin-dependent diabetes. 3. Hypertension. 4. Hyperlipidemia. PLAN: Left knee arthroscopy with partial meniscectomy, removal loose body and debridement. MMODL / IJN: [id number] /
[~2021-03-22 12:58] MED LIST: LACTATED RINGERS 1,000 ML IV SCH; LIDOCAINE 1% (10MG/ML) FOR IV START INTRADERMA PRN; ONDANSETRON 4 MG/2 ML VIAL IVP ONE; ONDANSETRON 4 MG/2 ML VIAL IVP PRN
[2021-03-22] MEDS ORDERED: LACTATED RINGERS 1,000 ML IV ONE (13:17)
[2021-03-22 13:30] LABS: Glucose,Whole Blood 130 mg/dL (75-99)
[2021-03-22] MEDS ORDERED: BUPIVACAINE (PF) 0.25% 30 ML VIAL SQ ONE ×2 (14:27→15:10)
[2021-03-22] MEDS ORDERED: LIDOCAINE 1% INJ 10MG/ML (20 ML MDV) ONE (14:28)
[2021-03-22] MEDS ORDERED: PROPOFOL 10 MG/ML 20 ML VIAL IV ONE (14:28)
[2021-03-22] MEDS ORDERED: MIDAZOLAM 2 MG/2 ML VIAL ONE (14:28)
[2021-03-22] MEDS ORDERED: SUCCINYLCHOLINE CHLORIDE 100 MG/5 ML SYR IV ONE (14:28)
[2021-03-22] MEDS ORDERED: .fentaNYL (PF) 50 MCG/ML 2 ML AMP ONE (14:28)
[2021-03-22 15:27] VITALS: RESP 16; TEMP 97
--- NOTE | 2021-03-22 15:33 | P.OP ---
Date of Procedure: 03/22/21 Preoperative Diagnosis: Internal derangement left knee Postoperative Diagnosis: 1. Complex tear medial meniscus left knee 2. Grade 2/3 chondromalacia medial femoral condyle left knee 3. Loose body left knee 4. Reactive synovitis medial, lateral and suprapatellar compartments left knee Procedure(s) Performed: 1. Arthroscopic partial medial meniscectomy left knee 2. Arthroscopic chondroplasty medial femoral condyle left knee 3. Arthroscopic removal loose body left knee 4. Arthroscopic partial synovectomy medial, lateral and suprapatellar compartments left knee Anesthesia: SUZANNEA, local Surgeon: Winston Raygoza Estimated Blood Loss (ml): 7 Pathology: none sent Condition: stable Disposition: PACU Indications for Procedure: 70-year-old patient seen with progressive left knee pain. After treatment options were discussed, he elected to proceed with arthroscopy. Operative Findings: see description of procedure Description of Procedure: Patient was taken to the operative suite. Patient underwent a general anes thetic by the department of anesthesia. Patient was given preoperative antibiotics. The left lower extremity was placed in a well-padded arthroscopic leg duckworth. The left leg was prepped and draped in the normal sterile orthopedic fashion. A lateral parapatellar and suprapatellar incision was made. Trochars were inserted. Arthroscopy was initiated. Suprapatellar pouch revealed diffuse thick reactive synovitis. The patellofemoral joint appeared to articulate congruently. There was grade 1 chondromalacia of the patella with no osteochondral tears present. The scope was guided into the medial gutter. No loose body or plica was identified. The scope was then guided into the medial compartment. A medial parapatellar incision was made. Trocar inserted followed by probe. There was a complex tear involving the posterior horn medial meniscus. I noted a loose body in the posterior lateral corner of the medial compartment. I introduced a loose body forceps and removed the loose body without difficulty. There were grade 2/3 chondromalacia changes of the medial femoral condyle with some diffuse osteochondral tears present. There was some thick reactive synovitis anteriorly. I performed a partial medial meniscectomy getting down to stable meniscal tissue. I performed a chondroplasty medial femoral condyle getting down to stable osteochondral tissue. I performed a partial synovectomy decompressing the reactive synovitis. The shaver was now removed. The residual meniscus was stable. The residual osteochondral surface was stable. There was good decompression of synovitis. Scope and probe were then guided into the intercondylar notch. Cruciates were identified, probed and found to be stable. The scope and probe were then guided into lateral compartment. Lateral meniscus was probed and was found to be stable. There was no significant chondromalacia involving the lateral compartment. There was some thick reactive synovitis anteriorly. I introduced a motorized shaver and I performed a partial synovectomy. Shaver was removed. There was good decompression of synovitis. The scope was in guided back into the suprapatellar compartment. I introduced a motorized shaver into the super patellar compartment. I debrided some piecemeal fragments of meniscus that I encountered. I performed a partial synovectomy. The shaver was now removed. I now took one more look throughout the entire knee, no residual debris. The joint was infiltrated with .25% Marcaine. Steri-Strips were applied to the portal sites. Sterile dressings were applied. The patient was placed into a SURESH hose. No tourniquet was utilized. The patient was awakened, transferred to a bed and taken to recovery stable satisfactory condition.
[2021-03-22] MEDS ORDERED: KETOROLAC 30 MG/ML 1 ML VIAL ONE (15:45)
[2021-03-22] MEDS ORDERED: KETOROLAC 15 MG/ML 1 ML VIAL IVP ONE (15:49)
[2021-03-22] MEDS: HYDROmorphone 0.5 MG/0.5 ML SYRINGE IVP PRN ×2 (15:53→16:07)
[2021-03-22 16:51] VITALS: BP 144/73; PULSE 49
== END 2021-03-22 17:54 | disposition home or self-care (01) ==
LOC: OR 12:58
PROVIDERS: ATTEND Orthopaedic Surgery
DX: S83.232A Complex tear of medial meniscus, current injury, left knee, initial encounter (principal); M22.42 Chondromalacia patellae, left knee; M23.42 Loose body in knee, left knee; M65.9 Synovitis and tenosynovitis, unspecified; E11.9 Type 2 diabetes mellitus without complications; Z79.4 Long term (current) use of insulin; I10 Essential (primary) hypertension; E78.5 Hyperlipidemia, unspecified
CPT/HCPCS: 29880; 29876; J0690; J2405; J1885; J1170

== ENCOUNTER → 2021-04-03 | Outpatient (CLI) | payer MEDICARE ==
--- NOTE | 2021-04-03 15:02 | SFUN ---
SLEEP CENTER FOLLOW UP NOTE DATE OF SERVICE: 04/03/2021 70-year-old gentleman has been followed in Sleep Center for treatment of obstructive sleep apnea-hypopnea syndrome. Patient continued to use his CPAP equipment every night for the whole night. No snoring with the machine. [place] Sleepiness Scale today is 7. I checked the CPAP unit. Range of the pressure 8-16, average 13.5, usage 27/30 nights and 24/30 nights more than 4 hours, average 7 hours per night. Leak is very minimal 6 L/minute. Apnea-hypopnea index 3.6, which is totally normal. MEDICATIONS: Levemir 70 units at night, NovoLog 15-24 units 3 times a day, Ozempic 1 unit once a week, aspirin 81 mg once a day, propranolol extended release 60 mg once a day, levocetirizine 5 mg once a day, Baclofen 10 mg once a day. PHYSICAL EXAMINATION: GENERAL: Patient in no distress. BP 131/65, HR 68, RR 15, height 5 feet 4-1/4 inches, weight 219 pounds, body mass index 37.3, temperature 97.4 oxygen saturation room air 97%. Oropharynx: Extremely low position of soft palate, Mallampati 4. NECK: Supple, no JVD. Thyroid is not palpable. LUNGS: Clear to percussion and to auscultation. Good air exchange. No wheezing or rhonchi. HEART: S1, S2 regular. No murmurs, gallops, or rubs. ABDOMEN: Slightly obese. Soft and nontender. Bowel sounds are present. No organomegaly appreciated. EXTREMITIES: No clubbing or cyanosis. POLICY VALUE CALCULATOR: Awake, alert, and oriented X3. Cranial nerves 2 to 7 intact. There is no fasciculation or atrophy. noted. No focal deficits observed. IMPRESSION: 1. Obstructive sleep apnea-hypopnea syndrome. Patient demonstrated good compliance with treatment, benefitting from treatment. 2. History of periodic limb movements during the sleep study. No complaints from periodic limb movements at the present time. 3. Diabetes mellitus. 4. Hypertension. 5. Acid reflux. 6. History of peptic ulcer disease. 7. Obesity. Patient lost 13 pounds since previous visit. PLAN: 1. Patient will continue to use PAP equipment every night for the whole night. 2. Sleep hygiene with regular time in bed for at least 7-1/2 to 8 hours. 3. Precautions related to driving. No driving if feeling sleepiness. 4. I will maintain all necessary prescription for PAP supplies including mask, tube, filters. 5. Watching weight. 6. Follow-up visit in 6 months or earlier if patient has any problems. Thank you very much for allowing me to participate in management of your patient. Sincerely, Leonides Anton MD, PhD, FAASM Diplomat of [place] [employer] Sleep Medicine Board of [place] [employer] Biomass Production Manager of [facility] [place] MMODL / YOLYN: [id number] /
== END | disposition home or self-care (01) ==
LOC: SLEEP 10:15
PROVIDERS: ATTEND Internal Medicine
DX: G47.33 Obstructive sleep apnea (adult) (pediatric) (principal); E11.9 Type 2 diabetes mellitus without complications; I10 Essential (primary) hypertension; K21.9 Gastro-esophageal reflux disease without esophagitis; E66.9 Obesity, unspecified; Z87.19 Personal history of other diseases of the digestive system

== ENCOUNTER 2021-07-24 18:13 | Inpatient (IN) | payer MEDICARE ==
[2021-07-24 19:24] LABS: Basophils % (A) 0 %; Eosinophils # (A) 0.4 k/uL (0-0.7); Eosinophils % (A) 2 %; HCT 41.6 % (39.0-53.0); HGB 14.3 gm/dL (13.0-17.5); Lymphocytes # (A) 2.1 k/uL (1.0-4.8); Lymphocytes % (A) 13 %; MCH 31.6 pg (25.0-35.0); MCHC 34.3 g/dL (31.0-37.0); Mean Platelet Volume 7.6; Monocytes # (A) 0.8 k/uL (0-1.0); Monocytes % (A) 5 %; Neutrophils % (A) 79 %; Platelet Count 188 k/uL (150-450); RBC 4.53 m/uL (4.30-5.90); RDW 13.6 % (11.5-15.5); WBC 16.5 k/uL (3.8-10.6)
[2021-07-24 19:36] LABS: Albumin 4.5 g/dL (3.5-5.0); Potassium 4.3 mmol/L (3.5-5.1); Total Bilirubin 0.6 mg/dL (0.2-1.3); Total Protein 7.3 g/dL (6.3-8.2)
[2021-07-24 19:51] LABS: Appearance,Urine Clear (Clear); Bacteria,Urine Rare /hpf; Bilirubin,Urine Negative (Negative); Blood,Urine Negative (Negative); Color,Urine Yellow; Glucose,Urine (UA) Negative (Negative); Ketones,Urine Trace (Negative); Leukocyte Esterase,Urine Trace (Negative); Mucus,Urine Occasional /hpf; Nitrite,Urine Negative (Negative); PH, Urine 5.5 (5.0-8.0); Protein,Urine 1+ (Negative); RBC,Urine 1 /hpf (0-5); Specific Gravity,Urine 1.031 (1.001-1.035); WBC,Urine 13 /hpf (0-5)
[2021-07-24] MEDS ORDERED: ACETAMINOPHEN TAB 500 MG TAB PO STA (20:51)
--- NOTE | 2021-07-24 20:58 | ED ---
General Adult HPI - General Chief complaint: Weakness Stated complaint: Weakness Time Seen by Provider: 07/24/21 20:30 Source: patient, family, RN notes reviewed Mode of arrival: ambulatory Limitations: no limitations - History of Present Illness Initial comments: Patient is a pleasant 70-year-old male presenting to the emergency department not feeling well. Onset of symptoms was around a week ago. Patient is having significant fatigue. Patient is sleeping more than normal. Patient has diffuse myalgias and achiness in his joints. No significant cough or upper respiratory symptoms. No chest pain. No abdominal pain. No loss of taste are small. No dysuria. Patient did have recent scope of his urethra secondary to prostatic hypertrophy and was placed on medicine for his prostate. Patient also had knee surgery back in March. - Related Data Home Medications Medication Instructions Recorded Confirmed Aspirin 81 mg PO DAILY 03/20/21 03/20/21 Baclofen [Lioresal] 10 mg PO HS 03/20/21 03/20/21 Insulin Aspart [NovoLOG Flexpen] 15 - 24 units SQ AC-TID 03/20/21 03/20/21 Insulin Detemir (Levemir) [Levemir] 50 unit SQ HS 03/20/21 03/20/21 Levocetirizine Dihydrochloride 5 mg PO HS 03/20/21 03/20/21 [Xyzal] Propranolol LA [Inderal LA] 60 mg PO DAILY 03/20/21 03/20/21 Rosuvastatin Calcium 5 mg PO DAILY 03/20/21 03/20/21 Semaglutide [Ozempic] 1 mg SQ SA 03/20/21 03/20/21 Tamsulosin [Flomax] 0.4 mg PO HS 03/20/21 03/20/21 lisinopriL [Zestril] 20 mg PO DAILY 03/20/21 03/20/21 sitaGLIPtin [Januvia] 100 mg PO DAILY 03/20/21 03/20/21 Previous Rx's Medication Instructions Recorded HYDROcodone/APAP 5-325MG [[place] 1 tab PO Q6HR PRN #12 tab 03/22/21 5-325] Allergies Allergy/AdvReac Type Severity Reaction Status Date / Time No Known Allergies Allergy Verified 07/24/21 22:12 Review of Systems ROS Statement: Those systems with pertinent positive or pertinent negative responses have been documented in the HPI. ROS Other: All systems not noted in ROS Statement are negative. Constitutional: Reports: fever, chills Eyes: Denies: eye pain ENT: Denies: ear pain Respiratory: Denies: cough, dyspnea Cardiovascular: Denies: chest pain Endocrine: Reports: fatigue Gastrointestinal: Denies: abdominal pain, nausea, vomiting Genitourinary: Denies: dysuria Musculoskeletal: Denies: back pain Skin: Denies: rash Neurological: Denies: weakness Past Medical History Past Medical History: Diabetes Mellitus, Hypertension Additional Past Medical History / Comment(s): kidney stones History of Any Multi-Drug Resistant Organisms: None Reported Past Surgical History: Back Surgery Additional Past Surgical History / Comment(s): left shoulder Past Psychological History: No Psychological Hx Reported Smoking Status: Never smoker Past Alcohol Use History: None Reported Past Drug Use History: None Reported General Exam Limitations: no limitations General appearance: alert, in no apparent distress Head exam: Present: normocephalic Eye exam: Present: normal appearance ENT exam: Present: normal oropharynx Neck exam: Present: normal inspection. Absent: meningismus Respiratory exam: Present: normal lung sounds bilaterally Cardiovascular Exam: Present: regular rate, normal rhythm GI/Abdominal exam: Present: soft. Absent: tenderness Extremities exam: Present: normal inspection. Absent: pedal edema, calf tenderness Neurological exam: Present: alert Psychiatric exam: Present: normal affect, normal mood Skin exam: Present: normal color Course Vital Signs 07/24/21 18:35 Temperature 101.3 F H Pulse Rate 84 Respiratory 18 Rate Blood Pressure 132/76 O2 Sat by Pulse 94 L Oximetry - Reevaluation(s) Reevaluation #1: 07/24/21 22:18 Concern for sepsis without source at 2210. Blood culture and lactic acid ordered. IV antibiotics will be ordered. EKG Findings - EKG Comments: EKG Findings:: Sinus rhythm with a rate of 81. NC 182. QRS 98. QT 347. QTc 385. Normal axis. Normal QRS. No acute ST change. Medical Decision Making - Medical Decision Making Patient has fever of unknown origin with symptoms 1 week. Suspected infection without definitive source. Patient does meet Sirs criteria. Blood culture and lactic acid ordered. IV and about X will be ordered. Case was discussed with practitioner Nellie Rivera, who will admit For Dr. Sutton, who admits for Dr. Plata. - Lab Data Result diagrams: 07/24/21 18:48 07/24/21 18:48 Lab Results 07/24/21 07/24/21 07/24/21 Range/Units 18:48 18:48 18:48 WBC 16.5 H (3.8-10.6) k/uL RBC 4.53 (4.30-5.90) m/uL Hgb 14.3 (13.0-17.5) gm/dL Hct 41.6 (39.0-53.0) % MCV 92.0 (80.0-100.0) fL MCH 31.6 (25.0-35.0) pg MCHC 34.3 (31.0-37.0) g/dL RDW 13.6 (11.5-15.5) % Plt Count 188 (150-450) k/uL MPV 7.6 Neutrophils % 79 % Lymphocytes % 13 % Monocytes % 5 % Eosinophils % 2 % Basophils % 0 % Neutrophils # 13.0 H (1.3-7.7) k/uL Lymphocytes # 2.1 (1.0-4.8) k/uL Monocytes # 0.8 (0-1.0) k/uL Eosinophils # 0.4 (0-0.7) k/uL Basophils # 0.0 (0-0.2) k/uL D-Dimer (<0.60) mg/L FEU Sodium 138 (137-145) mmol/L Potassium 4.3 (3.5-5.1) mmol/L Chloride 103 (98-107) mmol/L Carbon Dioxide 24 (22-30) mmol/L Anion Gap 11 mmol/L BUN 22 H (9-20) mg/dL Creatinine 0.99 (0.66-1.25) mg/dL Est GFR (CKD-EPI)AfAm 89 (>60 ml/min/1.73 sqM) Est GFR (CKD-EPI)NonAf 77 (>60 ml/min/1.73 sqM) Glucose 149 H (74-99) mg/dL Plasma Lactic Acid De (0.7-2.0) mmol/L Calcium 9.0 (8.4-10.2) mg/dL Total Bilirubin 0.6 (0.2-1.3) mg/dL AST 19 (17-59) U/L ALT 21 (4-49) U/L Alkaline Phosphatase 68 (38-126) U/L Troponin I <0.012 (0.000-0.034) ng/mL C-Reactive Protein (<1.0) mg/dL Total Protein 7.3 (6.3-8.2) g/dL Albumin 4.5 (3.5-5.0) g/dL Urine Color Urine Appearance (Clear) Urine pH (5.0-8.0) Ur Specific [place] (1.001-1.035) Urine Protein (Negative) Urine Glucose (UA) (Negative) Urine Ketones (Negative) Urine Blood (Negative) Urine Nitrite (Negative) Urine Bilirubin (Negative) Urine Urobilinogen (<2.0) mg/dL Ur Leukocyte Esterase (Negative) Urine RBC (0-5) /hpf Urine WBC (0-5) /hpf Urine Bacteria (None) /hpf Urine Mucus (None) /hpf Coronavirus (PCR) (Not Detectd) Influenza Type A RNA (Not Detectd) Influenza Type B (PCR) (Not Detectd) 07/24/21 07/24/21 07/24/21 Range/Units 18:48 18:48 19:17 WBC (3.8-10.6) k/uL RBC (4.30-5.90) m/uL Hgb (13.0-17.5) gm/dL Hct (39.0-53.0) % MCV (80.0-100.0) fL MCH (25.0-35.0) pg MCHC (31.0-37.0) g/dL RDW (11.5-15.5) % Plt Count (150-450) k/uL MPV Neutrophils % % Lymphocytes % % Monocytes % % Eosinophils % % Basophils % % Neutrophils # (1.3-7.7) k/uL Lymphocytes # (1.0-4.8) k/uL Monocytes # (0-1.0) k/uL Eosinophils # (0-0.7) k/uL Basophils # (0-0.2) k/uL D-Dimer (<0.60) mg/L FEU Sodium (137-145) mmol/L Potassium (3.5-5.1) mmol/L Chloride (98-107) mmol/L Carbon Dioxide (22-30) mmol/L Anion Gap mmol/L BUN (9-20) mg/dL Creatinine (0.66-1.25) mg/dL Est GFR (CKD-EPI)AfAm (>60 ml/min/1.73 sqM) Est GFR (CKD-EPI)NonAf (>60 ml/min/1.73 sqM) Glucose (74-99) mg/dL Plasma Lactic Acid De (0.7-2.0) mmol/L Calcium (8.4-10.2) mg/dL Total Bilirubin (0.2-1.3) mg/dL AST (17-59) U/L ALT (4-49) U/L Alkaline Phosphatase (38-126) U/L Troponin I (0.000-0.034) ng/mL C-Reactive Protein 4.6 H (<1.0) mg/dL Total Protein (6.3-8.2) g/dL Albumin (3.5-5.0) g/dL Urine Color Yellow Urine Appearance Clear (Clear) Urine pH 5.5 (5.0-8.0) Ur Specific [place] 1.031 (1.001-1.035) Urine Protein 1+ H (Negative) Urine Glucose (UA) Negative (Negative) Urine Ketones Trace H (Negative) Urine Blood Negative (Negative) Urine Nitrite Negative (Negative) Urine Bilirubin Negative (Negative) Urine Urobilinogen 2.0 (<2.0) mg/dL Ur Leukocyte Esterase Trace H (Negative) Urine RBC 1 (0-5) /hpf Urine WBC 13 H (0-5) /hpf Urine Bacteria Rare H (None) /hpf Urine Mucus Occasional H (None) /hpf Coronavirus (PCR) Not Detected (Not Detectd) Influenza Type A RNA (Not Detectd) Influenza Type B (PCR) (Not Detectd) 07/24/21 07/24/21 07/24/21 Range/Units 20:53 20:53 21:04 WBC (3.8-10.6) k/uL RBC (4.30-5.90) m/uL Hgb (13.0-17.5) gm/dL Hct (39.0-53.0) % MCV (80.0-100.0) fL MCH (25.0-35.0) pg MCHC (31.0-37.0) g/dL RDW (11.5-15.5) % Plt Count (150-450) k/uL MPV Neutrophils % % Lymphocytes % % Monocytes % % Eosinophils % % Basophils % % Neutrophils # (1.3-7.7) k/uL Lymphocytes # (1.0-4.8) k/uL Monocytes # (0-1.0) k/uL Eosinophils # (0-0.7) k/uL Basophils # (0-0.2) k/uL D-Dimer 0.76 H (<0.60) mg/L FEU Sodium (137-145) mmol/L Potassium (3.5-5.1) mmol/L Chloride (98-107) mmol/L Carbon Dioxide (22-30) mmol/L Anion Gap mmol/L BUN (9-20) mg/dL Creatinine (0.66-1.25) mg/dL Est GFR (CKD-EPI)AfAm (>60 ml/min/1.73 sqM) Est GFR (CKD-EPI)NonAf (>60 ml/min/1.73 sqM) Glucose (74-99) mg/dL Plasma Lactic Acid De 1.2 (0.7-2.0) mmol/L Calcium (8.4-10.2) mg/dL Total Bilirubin (0.2-1.3) mg/dL AST (17-59) U/L ALT (4-49) U/L Alkaline Phosphatase (38-126) U/L Troponin I (0.000-0.034) ng/mL C-Reactive Protein (<1.0) mg/dL Total Protein (6.3-8.2) g/dL Albumin (3.5-5.0) g/dL Urine Color Urine Appearance (Clear) Urine pH (5.0-8.0) Ur Specific [place] (1.001-1.035) Urine Protein (Negative) Urine Glucose (UA) (Negative) Urine Ketones (Negative) Urine Blood (Negative) Urine Nitrite (Negative) Urine Bilirubin (Negative) Urine Urobilinogen (<2.0) mg/dL Ur Leukocyte Esterase (Negative) Urine RBC (0-5) /hpf Urine WBC (0-5) /hpf Urine Bacteria (None) /hpf Urine Mucus (None) /hpf Coronavirus (PCR) (Not Detectd) Influenza Type A RNA Not Detected (Not Detectd) Influenza Type B (PCR) Not Detected (Not Detectd) - Radiology Data Radiology results: report reviewed (Computed tomography scan chest negative for pulmonary embolism), image reviewed (Chest x-ray shows no acute process) Critical Care Time Critical Care Time: Yes Total Critical Care Time: 32 Disposition Clinical Impression: Sepsis Disposition: ADMITTED IP TO THIS HOSP Condition: Stable Is patient prescribed a controlled substance at d/c from ED?: No Referrals: Areli Owens MD [Primary Care Provider] - 1-2 days Time of Disposition: 22:18
--- NOTE | 2021-07-24 21:10 | XR ---
EXAMINATION TYPE: XR chest 2V DATE OF EXAM: 07/24/2021 COMPARISON: 05/09/2015 HISTORY: Fever TECHNIQUE: 2 views FINDINGS: Heart and mediastinum are normal. Lungs are clear. Diaphragm is normal. Bony thorax appears normal. IMPRESSION: Normal chest. No change.
--- NOTE | 2021-07-24 21:51 | CT ---
EXAMINATION TYPE: CT angio chest DATE OF EXAM: 07/24/2021 COMPARISON: None HISTORY: Fever, weakness, elevated D-dimer. CT DLP: 523.1 mGycm Automated exposure control for dose reduction was used. CONTRAST: Performed with IV Contrast, patient injected with 70ml mL of Isovue 370. There are Three-D postprocessed images. There is no mediastinal adenopathy. There are no hilar masses. There is normal contrast opacification of the pulmonary arteries. No filling defect. Heart size is normal. There is no pericardial effusion . Thoracic spine is intact. There is no compression fracture. Sternum is intact. The ribs appear intact . The lungs are clear of infiltrate. No evidence of a pulmonary mass. No pleural effusion. IMPRESSION: Negative exam. No evidence of pulmonary embolism.
[2021-07-24] MEDS ORDERED: NALOXONE 0.4 MG/ML 1 ML VIAL IV PRN (22:20)
--- NOTE | 2021-07-24 22:56 | US ---
EXAMINATION TYPE: US venous doppler duplex LE DATE OF EXAM: 07/24/2021 10:38 PM COMPARISON: NONE CLINICAL HISTORY: d dimer. Elevated d dimer SIDE PERFORMED: Bilateral TECHNIQUE: The lower extremity deep venous system is examined utilizing real time linear array sonog antony with graded compression, doppler sonography and color-flow sonography. VESSELS IMAGED: Common Femoral Vein Deep Femoral Vein Greater Saphenous Vein * Femoral Vein Popliteal Vein Small Saphenous Vein * Proximal Calf Veins (* superficial vessels) Right Leg: Negative for DVT Left Leg: Negative for DVT IMPRESSION: Normal exam. No evidence of deep vein thrombosis in the legs.
[2021-07-25] MEDS: BACLOFEN 10 MG TAB PO SCH ×2 (00:21→22:26)
[2021-07-25] MEDS: ACETAMINOPHEN TAB 325 MG TAB PO PRN ×2 (04:55→17:59)
[2021-07-25 07:08] LABS: Basophils # (A) 0.1 k/uL (0-0.2); Basophils % (A) 0 %; Eosinophils # (A) 0.3 k/uL (0-0.7); Eosinophils % (A) 2 %; HCT 41.1 % (39.0-53.0); HGB 13.6 gm/dL (13.0-17.5); Lymphocytes # (A) 1.9 k/uL (1.0-4.8); Lymphocytes % (A) 11 %; MCH 30.7 pg (25.0-35.0); MCHC 33.1 g/dL (31.0-37.0); Monocytes % (A) 6 %; Neutrophils # (A) 13.7 k/uL (1.3-7.7); Neutrophils % (A) 79 %; Platelet Count 149 k/uL (150-450); RBC 4.42 m/uL (4.30-5.90); RDW 12.8 % (11.5-15.5); WBC 17.2 k/uL (3.8-10.6)
[2021-07-25] MEDS: TAMSULOSIN 0.4 MG CAP.ER.24H PO SCH (08:21)
[2021-07-25] MEDS: IBUPROFEN 400 MG TAB PO PRN (08:21)
[2021-07-25] MEDS: INSULIN ASPART (NovoLOG) 100 UNIT/ML VIAL SQ SCH ×5 (08:22→21:12)
[2021-07-25] MEDS: ATORVASTATIN 10 MG TAB PO SCH (08:22)
[2021-07-25] MEDS: ASPIRIN 81 MG PO SCH (08:22)
[2021-07-25] MEDS: MULTIVITAMINS, THERA 1 EACH TAB PO SCH (08:23)
[2021-07-25] MEDS: PROPRANOLOL LA 60 MG CAP.SA.24H PO SCH (08:23)
[2021-07-25] MEDS ORDERED: IOPAMIDOL CONTRAST (ORAL USE) VIAL PO PRN (13:31)
[2021-07-25] MEDS ORDERED: LORATADINE 10 MG TAB PO PRN (13:32)
--- NOTE | 2021-07-25 17:47 | HP ---
HISTORY AND PHYSICAL DATE OF SERVICE: 07/25/2021 CHIEF COMPLAINTS: Weakness and fever. HISTORY OF PRESENT ILLNESS: This 70-year-old gentleman with a past medical history of multiple medical problems, including diabetes mellitus, hyperlipidemia, hypertension, being followed by Dr. Owens in the outpatient setting, recently had a urological procedure. The details are not available at this time. The patient had arthroscopic repair of the left knee and subsequent injections also recently. The patient was complaining of generalized tiredness and fever, and the patient came to [facility] and was admitted for further evaluation and treatment. There is no history of any headache, loss of consciousness, seizures. PAST MEDICAL HISTORY: Diabetes, hypertension, hyperlipidemia. Others are reviewed. HOME MEDICATIONS: Reviewed. They include insulin. Doses and other medications are reviewed. ALLERGIES: NONE. FAMILY HISTORY: History of heart problems. SOCIAL HISTORY: No history of smoking. No history of alcohol intake. REVIEW OF SYSTEMS: Fourteen-point review of systems negative except as mentioned earlier. PHYSICAL EXAMINATION: Pulse is 74, blood pressure 115/, respiration 16. Oral mucosa moist. NECK: No jugular venous distention. CARDIOVASCULAR: S1, S2 muffled. RESPIRATION: Breath sounds diminished at the bases. No rhonchi. No crackles. ABDOMEN: Soft, obese, non-tender. LEGS: No edema. No swelling. Left knee slightly painful; otherwise no swelling, no tenderness. NERVOUS SYSTEM: No focal deficits. SKIN: No ulcer, rash, bleeding. JOINTS: As mentioned earlier. LYMPHATICS: No lymph node palpable in neck, axillae or groin. LABS: WBC 16.5. Other labs are reviewed. ASSESSMENT: 1. Possible acute urinary tract infection with sepsis. 2. History of recent urological procedure. 3. Elevated white count. 4. Diabetes mellitus, type 2. 5. Hypertension. 6. Hyperlipidemia. RECOMMENDATIONS AND DISCUSSION: In this 70-year-old gentleman who presented with multiple complex medical issues, at this time I recommend intravenous IV antibiotics. Obtain urine and blood cultures. Infectious disease evaluation. Urology also will be consulted. Chest CT which I reviewed personally showed no evidence of pulmonary embolism. I would also recommend a CT scan of the abdomen and pelvis to complete the workup. Prognosis is guarded because of multiple complex medical issues. Discussed with the family at the bedside. A copy of this dictation is being forwarded to Dr. Owens, who is the primary physician. MMODL / IJN: [id number] / VIDA
--- NOTE | 2021-07-25 18:32 | CT ---
EXAMINATION TYPE: CT abdomen pelvis wo con DATE OF EXAM: 07/25/2021 COMPARISON: 11/22/2020 HISTORY: Possible pyelo? Sepsis. Per patient, looking for infection. Fever. CT DLP: 1053.4 mGycm Automated exposure control for dose reduction was used. Images obtained from the diaphragm through the floor the pelvis with oral contrast only. The lung bases are clear. There is no pleural effusion. Heart size is normal. No pericardial effusion . Liver spleen pancreas gallbladder appear intact. The bile ducts are not dilated. The stomach is intac t. There is no adrenal mass. Kidneys show normal size and contour. There is no hydronephrosis. Ureters a re not dilated. There is no evidence of a renal mass. There is no retroperitoneal adenopathy. The ro dder distends smoothly. There is no inguinal hernia. There is no free fluid in the pelvis. There is no mesenteric edema. There is no ascites or free air. No sign of a bowel obstruction. The ap pendix is posterior and medial and appears normal. Small bowel pattern is normal. There is normal ora l contrast material extending into the ilium. The lumbar vertebrae have fairly normal alignment. There is posterior fusion surgery at L2-3. No comp ression fracture. I see no bony destructive process. The bony pelvis is intact. The hip joints are in tact. There is 3 cm fat-containing umbilical hernia. There is mild subcutaneous edema over the lower anterior left and right abdomen that could be injection sites. IMPRESSION: Negative CT scan abdomen and pelvis. No evidence of renal mass or obstruction. No adverse change comp ared to old exam. No renal edema seen to suggest pyelonephritis.
[2021-07-25 21:21] LABS: Glucose,Whole Blood 104 mg/dL (75-99)
[2021-07-25] MEDS: INSULIN DETEMIR (LEVEMIR) 100 UNIT/ML SYR SQ SCH (22:26)
--- NOTE | 2021-07-25 23:30 | P.CONS ---
History of Present Illness - Reason for Consult Consult date: 07/25/21 Sepsis Requesting physician: Bruce Almaraz - Chief Complaint Weakness x one-week - History of Present Illness Patient is a 70-year-old male with a past medical history taken for diabetes mellitus hypertension kidney stone presenting to the ER for evaluation of generalized weakness and not feeling well in this patient symptom has been going on for about a week before presentation the hospital seem to have fatigue weakness no energy denies any history of any fall or any focal weakness patient denies having any headache or URI symptom, denies having any chest pain or shortness with her minimal cough some nausea but no vomiting did have some suprapubic discomfort difficulty urination and some burning but no hematuria or any diarrhea with the symptoms the patient has been evaluated by the ER physician on arrival to the ER patient did have a fever of 101.3 F no tachycardia however did have a white count 16 point 5 repeat is 17.2 BUN was mild elevated creatinine is normal liver exams are normal did have a positive UA isaac and influenza PCR was negative blood cultures obtained which are currently pending patient did have a chest x-ray normal chest no change he did have a CT angiogram of the chest negative exam for PE and no evidence of any acute infiltrate in the lung patient was started on Rocephin has been admitted to the hospital infectious disease was consulted for further management of antibiotic therapy Review of Systems Positive point has been mentioned in the HPI rest of the systems are negative Past Medical History Past Medical History: Diabetes Mellitus, Hyperlipidemia, Hypertension, Osteoarthritis (OA), Prostate Disorder, Renal Disease, Sleep Apnea/CPAP/BIPAP Additional Past Medical History / Comment(s): IDDM type II, arthritis in R knee, occasional low back pain, bone chip in L knee, RAUL with Cpap, BPH, nephrolithiasis-pt passed stones on his own, benign colon polyps, diverticular disease, nasal polyps History of Any Multi-Drug Resistant Organisms: None Reported Past Surgical History: Back Surgery Additional Past Surgical History / Comment(s): Recent cystoscopy, EGD, colonoscopies, lumbar back fusion, L shoulder fracture with surgery, L knee arthroscopy, sinus surgery for polyps, bilateral cataract removal with lens implants. Additional Past Anesthesia/Blood Transfusion Reaction / Comm: Slow to wake Smoking Status: Never smoker - Past Family History Father Additional Family Medical History / Comment(s): Heart problems Mother Family Medical History: Cancer Additional Family Medical History / Comment(s): Uterine cancer. Medications and Allergies Home Medications Medication Instructions Recorded Confirmed Type Aspirin 81 mg PO DAILY 03/20/21 07/24/21 History Baclofen [Lioresal] 10 mg PO HS 03/20/21 07/24/21 History Levocetirizine Dihydrochloride 5 mg PO HS PRN 03/20/21 07/24/21 History [Xyzal] Rosuvastatin Calcium 5 mg PO DAILY 03/20/21 07/24/21 History Tamsulosin [Flomax] 0.4 mg PO DAILY 03/20/21 07/24/21 History lisinopriL [Zestril] 20 mg PO DAILY 03/20/21 07/24/21 History sitaGLIPtin [Januvia] 100 mg PO DAILY 03/20/21 07/24/21 History Ginseng Complex 250mg 250 mg PO DAILY 07/24/21 07/24/21 History Insulin Aspart [NovoLOG Flexpen] 22 units SQ TID 07/24/21 07/24/21 History Insulin Detemir [Levemir Flextouch 60 units SQ HS 07/24/21 07/24/21 History Pen] Multivit-Min/Folic/Vit K/Lycop 1 tab PO DAILY 07/24/21 07/24/21 History [Men's Multivitamin Tablet] Propranolol HCl [Propranolol HCl 60 mg PO DAILY 07/24/21 07/24/21 History ER] Vibegron [Gemtesa] 75 mg PO HS 07/24/21 07/24/21 History Allergies Allergy/AdvReac Type Severity Reaction Status Date / Time No Known Allergies Allergy Verified 07/24/21 22:12 Physical Exam Vitals: Vital Signs Temp Pulse Pulse Resp BP BP Pulse Ox 07/25/21 08:00 99.0 F 74 16 114/56 95 07/25/21 06:36 99.4 F 80 18 122/65 95 07/25/21 04:31 100.8 F H 84 18 138/79 96 07/25/21 00:18 98.1 F 74 18 105/61 95 07/24/21 18:35 101.3 F H 84 18 132/76 94 L Intake and Output 07/24/21 07/25/21 07/25/21 22:59 06:59 14:59 Other: Weight 103.873 kg 103.873 kg GENERAL DESCRIPTION: Elderly male lying in bed, no distress. No tachypnea or accessory muscle of respiration use. HEENT: Shows Pallor , no scleral icterus. Oral mucous membrane is dry. No pharyngeal erythema or thrush NECK: Trachea central, no thyromegaly. LUNGS: Unlabored breathing. Clear to auscultation anteriorly. No wheeze or crackle. HEART: S1, S2, regular rate and rhythm. No loud murmur ABDOMEN: Soft, no tenderness , guarding or rigidity, no organomegaly EXTREMITIES: No edema of feet. SKIN: No rash, no masses palpable. NEUROLOGICAL: The patient is awake, alert, oriented x3, mood and affect normal. Results CBC & Chem 7: 07/25/21 06:36 07/24/21 18:48 Labs: Abnormal Lab Results - Last 24 Hours (Table) 07/24/21 07/24/21 07/24/21 Range/Units 18:48 18:48 18:48 WBC 16.5 H (3.8-10.6) k/uL Plt Count (150-450) k/uL Neutrophils # 13.0 H (1.3-7.7) k/uL D-Dimer (<0.60) mg/L FEU BUN 22 H (9-20) mg/dL Glucose 149 H (74-99) mg/dL C-Reactive Protein 4.6 H (<1.0) mg/dL Urine Protein (Negative) Urine Ketones (Negative) Ur Leukocyte Esterase (Negative) Urine WBC (0-5) /hpf Urine Bacteria (None) /hpf Urine Mucus (None) /hpf 07/24/21 07/24/21 07/25/21 Range/Units 19:17 20:53 06:36 WBC 17.2 H (3.8-10.6) k/uL Plt Count 149 L (150-450) k/uL Neutrophils # 13.7 H (1.3-7.7) k/uL D-Dimer 0.76 H (<0.60) mg/L FEU BUN (9-20) mg/dL Glucose (74-99) mg/dL C-Reactive Protein (<1.0) mg/dL Urine Protein 1+ H (Negative) Urine Ketones Trace H (Negative) Ur Leukocyte Esterase Trace H (Negative) Urine WBC 13 H (0-5) /hpf Urine Bacteria Rare H (None) /hpf Urine Mucus Occasional H (None) /hpf Assessment and Plan (1) Sepsis Current Visit: Yes Status: Acute Code(s): A41.9 - SEPSIS, UNSPECIFIED ORGANISM SNOMED Code(s): 18805358 Plan: 1patient presented to hospital with weakness fever elevated white count bradycardia for SIRS/sepsis source likely urinary tract infection likely from enteric gram-negative pathogen could be sensitive as the patient did not have any exposure to antibiotic in the recent past. 2Rocephin 1 g daily to continue. 3gentle IV fluid We will follow on clinical condition and cultures to further adjust medication if needed Thank you for this consultation will follow this patient along with you Time with Patient: Greater than 30
[2021-07-26] MEDS: ACETAMINOPHEN TAB 325 MG TAB PO PRN ×2 (02:04→12:49)
[2021-07-26] MEDS: IBUPROFEN 400 MG TAB PO PRN ×2 (03:19→17:24)
[2021-07-26 07:05] LABS: Glucose,Whole Blood 192 mg/dL (75-99)
[2021-07-26] MEDS: MULTIVITAMINS, THERA 1 EACH TAB PO SCH (08:58)
[2021-07-26] MEDS: ASPIRIN 81 MG PO SCH (08:58)
[2021-07-26] MEDS: TAMSULOSIN 0.4 MG CAP.ER.24H PO SCH (08:58)
[2021-07-26] MEDS: LINAGLIPTIN 5 MG TABLET PO SCH (08:58)
[2021-07-26] MEDS: PROPRANOLOL LA 60 MG CAP.SA.24H PO SCH (08:58)
[2021-07-26] MEDS: ATORVASTATIN 10 MG TAB PO SCH (08:58)
[2021-07-26] MEDS: INSULIN ASPART (NovoLOG) 100 UNIT/ML VIAL SQ SCH ×7 (08:58→20:31)
[2021-07-26] MEDS: lisinopriL 20 MG TAB PO SCH (08:58)
[2021-07-26 09:26] LABS: HCT 37.8 % (39.6-50.0); HGB 12.7 g/dL (13.0-17.0); MCH 30.7 pg (27.0-32.0); MCHC 33.6 g/dL (32.0-37.0); MCV 91.3 fL (80.0-97.0); Mean Platelet Volume 10.6 fL (9.5-12.2); NRBC Per 100 WBC 0 /100 WBCS (0.0-0.0); Platelet Count 162 X 10*3/uL (140-440); RBC 4.14 X 10*6/uL (4.40-5.60); RDW 12.8 % (11.5-14.5); WBC 22.27 X 10*3/uL (4.50-10.00)
[2021-07-26 09:36] LABS: Albumin 4.2 g/dL (3.8-4.9); Albumin/Globulin Ratio 1.91 (1.60-3.17); Anion Gap 14.4 mmol/L (10.00-18.00); BUN/Creat Ratio 15.2 Ratio (12.00-20.00); Blood Urea Nitrogen 15.2 mg/dL (9.0-27.0); Calcium 8.6 mg/dL (8.7-10.3); Carbon Dioxide 19.6 mmol/L (20.0-27.5); Globulin 2.2 g/dL (1.6-3.3); Non-African American GFR(CKD) 75.9 (60.0-200.0); Potassium 4.2 mmol/L (3.5-5.5); Total Bilirubin 0.6 mg/dL (0.30-1.20); Total Protein 6.4 g/dL (6.2-8.2)
[2021-07-26 10:07] LABS: Basophils # (A) 0.04 X 10*3/uL (0.00-0.10); Basophils % (A) 0.2 %; Eosinophils # (A) 0.05 X 10*3/uL (0.04-0.35); Eosinophils % (A) 0.2 %; Immature Grans, Automated 0.7 %; Lymphocytes # (A) 1.79 X 10*3/uL (0.90-5.00); Monocytes # (A) 1.56 X 10*3/uL (0.20-1.00); Neutrophils # (A) 18.68 X 10*3/uL (1.80-7.70); Neutrophils % (A) 83.9 %
[2021-07-26 10:08] LABS: Acanthocytes 2+
[2021-07-26 11:47] LABS: Glucose,Whole Blood 126 mg/dL (75-99)
[2021-07-26] MEDS ORDERED: ONDANSETRON 4 MG/2 ML VIAL IVP PRN (13:31)
[2021-07-26] MEDS: PANTOPRAZOLE 40 MG TABLET PO SCH (13:50)
--- NOTE | 2021-07-26 14:37 | PN ---
PROGRESS NOTE DATE OF SERVICE: 07/26/2021 This 70-year-old gentleman who was admitted with weakness and fever was thought to have acute sepsis. The exact etiology is unknown. UTI is suspected. Patient also had a recent urological procedure and is complaining of urinary difficulties at this time. Cultures are negative so far. The patient was feeling better this morning, but subsequently the patient had chills and rigors. Infectious Disease is evaluating the patient. Patient is on broad-spectrum IV antibiotics. Past medical history reviewed. REVIEW OF SYSTEMS: CARDIOVASCULAR SYSTEM: No angina. RESPIRATION: As mentioned earlier. GI: As mentioned earlier. CONSTITUTIONAL: As mentioned earlier. CURRENT MEDICATIONS: Reviewed. They include Tylenol, aspirin. Doses and other medications are reviewed. PHYSICAL EXAMINATION: Pulse is 69, blood pressure 133/69, respiration 19. HEENT: Conjunctivae normal. NECK: No jugular venous distention. CARDIOVASCULAR: S1, S2 muffled. RESPIRATION: Breath sounds diminished at the bases. A few scattered rhonchi. ABDOMEN: Soft. NERVOUS SYSTEM: No focal deficit. LABS: WBC 22.7, hemoglobin 12.7, sodium 135. ASSESSMENT: 1. Acute sepsis; possibly urinary tract infection with sepsis. 2. History of recent urological procedure. 3. Elevated white count. 4. Diabetes mellitus, type 2. 5. Hypertension. 6. Hyperlipidemia. RECOMMENDATIONS AND DISCUSSION: I recommend to continue current medications, continue with the monitoring, symptomatic treatment. Follow the cultures. Continue the antibiotics. Repeat blood cultures x2. Urology consultation. Infectious disease evaluation. CT scan reviewed. Prognosis guarded. Further recommendations to follow. We will monitor the blood sugars as well. See orders for further details. MMODL / IJN: [id number] /
[2021-07-26 16:33] LABS: Glucose,Whole Blood 171 mg/dL (75-99)
[2021-07-26 20:11] LABS: Glucose,Whole Blood 108 mg/dL (75-99)
[2021-07-26] MEDS: BACLOFEN 10 MG TAB PO SCH (20:31)
[2021-07-26] MEDS: INSULIN DETEMIR (LEVEMIR) 100 UNIT/ML SYR SQ SCH (20:31)
--- NOTE | 2021-07-26 23:43 | P.PN ---
Subjective Progress Note Date: 07/26/21 Principal diagnosis: Urinary tract infection Patient is a 70-year-old male presenting to the hospital with generalized weakness no energy did have some urinary burning and suprapubic pain did have a positive UA CT abdominal pelvis was negative for any acute pathology. On today's evaluation that is 07/26/2021, the patient denies having any fever or chills, patient is feeling slightly better, the patient denies having any chest pain shortness of breath or cough no nausea no vomiting and no diarrhea Objective - Vital Signs Vital signs: Vital Signs Temp 99.2 F 07/26/21 12:51 Pulse 69 07/26/21 07:33 Resp 19 07/26/21 07:33 BP 133/69 07/26/21 07:33 Pulse Ox 96 07/26/21 07:33 Intake & Output 07/25/21 07/26/21 07/26/21 18:59 06:59 18:59 Weight 103.873 kg Other: Voiding Method Toilet Urinal - Exam GENERAL DESCRIPTION: An elderly male lying in bed in no distress RESPIRATORY SYSTEM: Unlabored breathing , decreased breath sounds at bases HEART: S1 S2 regular rate and rhythm , ABDOMEN: Soft , no tenderness EXTREMITIES: No edema feet - Labs CBC & Chem 7: 07/26/21 05:00 07/26/21 05:00 Labs: Abnormal Lab Results - Last 24 Hours (Table) 07/25/21 07/25/21 07/25/21 Range/Units 06:36 06:36 21:10 WBC (4.50-10.00) X 10*3/uL RBC (4.40-5.60) X 10*6/uL Hgb (13.0-17.0) g/dL Hct (39.6-50.0) % Immature Gran # (0.00-0.04) X 10*3/uL Neutrophils # (1.80-7.70) X 10*3/uL Monocytes # (0.20-1.00) X 10*3/uL ESR 17 H (0-15) mm/hr Sodium (135-145) mmol/L Carbon Dioxide (20.0-27.5) mmol/L Glucose (70-110) mg/dL POC Glucose (mg/dL) 104 H (75-99) mg/dL Calcium (8.7-10.3) mg/dL AST (14-35) U/L C-Reactive Protein 6.5 H (<1.0) mg/dL 07/26/21 07/26/21 07/26/21 Range/Units 05:00 05:00 07:04 WBC 22.27 H (4.50-10.00) X 10*3/uL RBC 4.14 L (4.40-5.60) X 10*6/uL Hgb 12.7 L (13.0-17.0) g/dL Hct 37.8 L (39.6-50.0) % Immature Gran # 0.15 H (0.00-0.04) X 10*3/uL Neutrophils # 18.68 H (1.80-7.70) X 10*3/uL Monocytes # 1.56 H (0.20-1.00) X 10*3/uL ESR (0-15) mm/hr Sodium 134 L (135-145) mmol/L Carbon Dioxide 19.6 L (20.0-27.5) mmol/L Glucose 196 H (70-110) mg/dL POC Glucose (mg/dL) 192 H (75-99) mg/dL Calcium 8.6 L (8.7-10.3) mg/dL AST 11 L (14-35) U/L C-Reactive Protein (<1.0) mg/dL 07/26/21 Range/Units 11:46 WBC (4.50-10.00) X 10*3/uL RBC (4.40-5.60) X 10*6/uL Hgb (13.0-17.0) g/dL Hct (39.6-50.0) % Immature Gran # (0.00-0.04) X 10*3/uL Neutrophils # (1.80-7.70) X 10*3/uL Monocytes # (0.20-1.00) X 10*3/uL ESR (0-15) mm/hr Sodium (135-145) mmol/L Carbon Dioxide (20.0-27.5) mmol/L Glucose (70-110) mg/dL POC Glucose (mg/dL) 126 H (75-99) mg/dL Calcium (8.7-10.3) mg/dL AST (14-35) U/L C-Reactive Protein (<1.0) mg/dL Microbiology - Last 24 Hours (Table) 07/24/21 19:17 Blood Culture - Preliminary Blood No Growth after 24 hours 07/24/21 19:00 Blood Culture - Preliminary Blood No Growth after 24 hours Assessment and Plan (1) Sepsis Current Visit: Yes Status: Acute Code(s): A41.9 - SEPSIS, UNSPECIFIED ORGANISM SNOMED Code(s): 00994064 Plan: 1patient presented to hospital with weakness fever elevated white count meeting criteria for SIRS/sepsis source likely urinary tract infection likely from enteric gram-negative pathogen could be sensitive as the patient did not have any exposure to antibiotic in the recent past. 2patient to continue with Rocephin 1 g daily while waiting for the cultures to finalize Time with Patient: Less than 30
[2021-07-27] MEDS: ACETAMINOPHEN TAB 325 MG TAB PO PRN ×2 (03:17→13:49)
[2021-07-27 06:54] LABS: Glucose,Whole Blood 114 mg/dL (75-99)
[2021-07-27] MEDS: INSULIN ASPART (NovoLOG) 100 UNIT/ML VIAL SQ SCH ×7 (08:06→22:10)
[2021-07-27] MEDS: ATORVASTATIN 10 MG TAB PO SCH (08:18)
[2021-07-27] MEDS: lisinopriL 20 MG TAB PO SCH (08:18)
[2021-07-27] MEDS: TAMSULOSIN 0.4 MG CAP.ER.24H PO SCH (08:18)
[2021-07-27] MEDS: ASPIRIN 81 MG PO SCH (08:18)
[2021-07-27] MEDS: LINAGLIPTIN 5 MG TABLET PO SCH (08:18)
[2021-07-27] MEDS: MULTIVITAMINS, THERA 1 EACH TAB PO SCH (08:18)
[2021-07-27] MEDS: PROPRANOLOL LA 60 MG CAP.SA.24H PO SCH (08:19)
[2021-07-27] MEDS: PANTOPRAZOLE 40 MG TABLET PO SCH (08:19)
[2021-07-27 09:26] LABS: Basophils # (A) 0.07 X 10*3/uL (0.00-0.10); Basophils % (A) 0.3 %; Eosinophils # (A) 0.08 X 10*3/uL (0.04-0.35); Eosinophils % (A) 0.4 %; HCT 37.2 % (39.6-50.0); HGB 12.3 g/dL (13.0-17.0); Immature Grans, Automated 0.7 %; Lymphocytes # (A) 1.97 X 10*3/uL (0.90-5.00); Lymphocytes % (A) 8.9 %; MCH 30.7 pg (27.0-32.0); MCHC 33.1 g/dL (32.0-37.0); MCV 92.8 fL (80.0-97.0); Mean Platelet Volume 10.7 fL (9.5-12.2); Monocytes # (A) 1.79 X 10*3/uL (0.20-1.00); NRBC Per 100 WBC 0 /100 WBCS (0.0-0.0); Neutrophils # (A) 18.18 X 10*3/uL (1.80-7.70); Neutrophils % (A) 81.7 %; Platelet Count 161 X 10*3/uL (140-440); RBC 4.01 X 10*6/uL (4.40-5.60); WBC 22.24 X 10*3/uL (4.50-10.00)
[2021-07-27 09:29] LABS: Albumin/Globulin Ratio 1.9 (1.60-3.17); Anion Gap 13.1 mmol/L (10.00-18.00); BUN/Creat Ratio 15.8 Ratio (12.00-20.00); Blood Urea Nitrogen 15.8 mg/dL (9.0-27.0); Calcium 8.5 mg/dL (8.7-10.3); Carbon Dioxide 21.9 mmol/L (20.0-27.5); Globulin 2.1 g/dL (1.6-3.3); Non-African American GFR(CKD) 75.9 (60.0-200.0); Potassium 4.3 mmol/L (3.5-5.5); Total Bilirubin 0.4 mg/dL (0.30-1.20); Total Protein 6.1 g/dL (6.2-8.2)
[2021-07-27 11:09] LABS: Glucose,Whole Blood 177 mg/dL (75-99)
--- NOTE | 2021-07-27 13:11 | P.GSCN ---
History of Present Illness Consult date: 07/27/21 Reason for Consult: UTI Requesting physician: Sallie Sutton History of present illness: The patient is a 70-year-old white male whose urologic history is significant for BPH, hypogonadism, and kidney stones. The patient takes clomiphene citrate for hypogonadism, and tamsulosin for BPH. Urinary flow studies and cystoscopy performed on 07/20/2021 showed no significant bladder outflow obstruction. He was advised to continue taking tamsulosin, and a trial of Gemtesa 75 mg daily was initiated. He is now admitted with a several day history of weakness, fever, and joint aches. Review of Systems - Constitutional Reports fatigue, Reports fever, Denies chills - Genitourinary Denies dysuria, Denies hematuria Past Medical History Past Medical History: Diabetes Mellitus, Hyperlipidemia, Hypertension, Osteoarthritis (OA), Prostate Disorder, Renal Disease, Sleep Apnea/CPAP/BIPAP Additional Past Medical History / Comment(s): IDDM type II, arthritis in R knee, occasional low back pain, bone chip in L knee, RAUL with Cpap, BPH, nephrolithiasis-pt passed stones on his own, benign colon polyps, diverticular disease, nasal polyps History of Any Multi-Drug Resistant Organisms: None Reported Past Surgical History: Back Surgery Additional Past Surgical History / Comment(s): Recent cystoscopy, EGD, colo noscopies, lumbar back fusion, L shoulder fracture with surgery, L knee arthroscopy, sinus surgery for polyps, bilateral cataract removal with lens implants. Additional Past Anesthesia/Blood Transfusion Reaction / Comm: Slow to wake Smoking Status: Never smoker - Past Family History Father Additional Family Medical History / Comment(s): Heart problems Mother Family Medical History: Cancer Additional Family Medical History / Comment(s): Uterine cancer. Medications and Allergies Home Medications Medication Instructions Recorded Confirmed Type Aspirin 81 mg PO DAILY 03/20/21 07/24/21 History Baclofen [Lioresal] 10 mg PO HS 03/20/21 07/24/21 History Levocetirizine Dihydrochloride 5 mg PO HS PRN 03/20/21 07/24/21 History [Xyzal] Rosuvastatin Calcium 5 mg PO DAILY 03/20/21 07/24/21 History Tamsulosin [Flomax] 0.4 mg PO DAILY 03/20/21 07/24/21 History lisinopriL [Zestril] 20 mg PO DAILY 03/20/21 07/24/21 History sitaGLIPtin [Januvia] 100 mg PO DAILY 03/20/21 07/24/21 History Ginseng Complex 250mg 250 mg PO DAILY 07/24/21 07/24/21 History Insulin Aspart [NovoLOG Flexpen] 22 units SQ TID 07/24/21 07/24/21 History Insulin Detemir [Levemir Flextouch 60 units SQ HS 07/24/21 07/24/21 History Pen] Multivit-Min/Folic/Vit K/Lycop 1 tab PO DAILY 07/24/21 07/24/21 History [Men's Multivitamin Tablet] Propranolol HCl [Propranolol HCl 60 mg PO DAILY 07/24/21 07/24/21 History ER] Vibegron [Gemtesa] 75 mg PO HS 07/24/21 07/24/21 History Allergies Allergy/AdvReac Type Severity Reaction Status Date / Time No Known Allergies Allergy Verified 07/24/21 22:12 Surgical - Exam Vital Signs Temp Pulse Resp BP Pulse Ox 101.3 F H 84 18 132/76 94 L 07/24/21 18:35 07/24/21 18:35 07/24/21 18:35 07/24/21 18:35 07/24/21 18:35 - General well developed, well nourished, no distress - Respiratory normal respiratory effort - Abdomen Abdomen: soft, non tender, no guarding, no rigid, no rebound - Genitourinary normal penis with no external lesions, testicles non-tender - Psychiatric oriented to time, oriented to person, oriented to place, speech is normal, memory intact Results - Labs 07/27/21 04:27 07/27/21 04:27 Abnormal Lab Results - Last 24 Hours (Table) 07/26/21 07/26/21 07/26/21 Range/Units 05:00 05:00 07:04 WBC 22.27 H (4.50-10.00) X 10*3/uL RBC 4.14 L (4.40-5.60) X 10*6/uL Hgb 12.7 L (13.0-17.0) g/dL Hct 37.8 L (39.6-50.0) % Immature Gran # 0.15 H (0.00-0.04) X 10*3/uL Neutrophils # 18.68 H (1.80-7.70) X 10*3/uL Monocytes # 1.56 H (0.20-1.00) X 10*3/uL Sodium 134 L (135-145) mmol/L Carbon Dioxide 19.6 L (20.0-27.5) mmol/L Glucose 196 H (70-110) mg/dL POC Glucose (mg/dL) 192 H (75-99) mg/dL Calcium 8.6 L (8.7-10.3) mg/dL AST 11 L (14-35) U/L 07/26/21 07/26/21 07/26/21 Range/Units 11:46 16:31 20:10 WBC (4.50-10.00) X 10*3/uL RBC (4.40-5.60) X 10*6/uL Hgb (13.0-17.0) g/dL Hct (39.6-50.0) % Immature Gran # (0.00-0.04) X 10*3/uL Neutrophils # (1.80-7.70) X 10*3/uL Monocytes # (0.20-1.00) X 10*3/uL Sodium (135-145) mmol/L Carbon Dioxide (20.0-27.5) mmol/L Glucose (70-110) mg/dL POC Glucose (mg/dL) 126 H 171 H 108 H (75-99) mg/dL Calcium (8.7-10.3) mg/dL AST (14-35) U/L 07/27/21 Range/Units 06:52 WBC (4.50-10.00) X 10*3/uL RBC (4.40-5.60) X 10*6/uL Hgb (13.0-17.0) g/dL Hct (39.6-50.0) % Immature Gran # (0.00-0.04) X 10*3/uL Neutrophils # (1.80-7.70) X 10*3/uL Monocytes # (0.20-1.00) X 10*3/uL Sodium (135-145) mmol/L Carbon Dioxide (20.0-27.5) mmol/L Glucose (70-110) mg/dL POC Glucose (mg/dL) 114 H (75-99) mg/dL Calcium (8.7-10.3) mg/dL AST (14-35) U/L Microbiology - Last 24 Hours (Table) 07/24/21 19:00 Blood Culture - Preliminary Blood No Growth after 48 hours 07/24/21 19:17 Blood Culture - Preliminary Blood No Growth after 48 hours 07/26/21 09:00 Urine Culture - Preliminary Urine,Clean Catch Diabetes panel 07/26/21 Range/Units 05:00 Sodium 134 L (135-145) mmol/L Potassium 4.2 (3.5-5.5) mmol/L Chloride 100 (96-109) mmol/L Carbon Dioxide 19.6 L (20.0-27.5) mmol/L BUN 15.2 (9.0-27.0) mg/dL Creatinine 1.0 (0.6-1.5) mg/dL Glucose 196 H (70-110) mg/dL Calcium 8.6 L (8.7-10.3) mg/dL AST 11 L (14-35) U/L ALT 17 (10-49) U/L Alkaline Phosphatase 61 (41-126) U/L Total Protein 6.4 (6.2-8.2) g/dL Albumin 4.2 (3.8-4.9) g/dL Calcium panel 07/26/21 Range/Units 05:00 Calcium 8.6 L (8.7-10.3) mg/dL Albumin 4.2 (3.8-4.9) g/dL Pituitary panel 07/26/21 Range/Units 05:00 Sodium 134 L (135-145) mmol/L Potassium 4.2 (3.5-5.5) mmol/L Chloride 100 (96-109) mmol/L Carbon Dioxide 19.6 L (20.0-27.5) mmol/L BUN 15.2 (9.0-27.0) mg/dL Creatinine 1.0 (0.6-1.5) mg/dL Glucose 196 H (70-110) mg/dL Calcium 8.6 L (8.7-10.3) mg/dL Adrenal panel 07/26/21 Range/Units 05:00 Sodium 134 L (135-145) mmol/L Potassium 4.2 (3.5-5.5) mmol/L Chloride 100 (96-109) mmol/L Carbon Dioxide 19.6 L (20.0-27.5) mmol/L BUN 15.2 (9.0-27.0) mg/dL Creatinine 1.0 (0.6-1.5) mg/dL Glucose 196 H (70-110) mg/dL Calcium 8.6 L (8.7-10.3) mg/dL Total Bilirubin 0.60 (0.30-1.20) mg/dL AST 11 L (14-35) U/L ALT 17 (10-49) U/L Alkaline Phosphatase 61 (41-126) U/L Total Protein 6.4 (6.2-8.2) g/dL Albumin 4.2 (3.8-4.9) g/dL - Imaging CT scan - abdomen: report reviewed, image reviewed Assessment and Plan Plan: Mr. Garcia underwent urinary flow studies and cystoscopy 1 week ago. He now presents with fever, weakness, and joint aches. Laboratory studies show evidence of leukocytosis, but the urinalysis was fairly unremarkable in both urine and blood cultures were negative. I have reviewed the patient's CT scan, which shows no urologic abnormalities. I do not believe that his current sympto matology is urologic in nature, and thus I have no recommendations.
[2021-07-27 16:23] LABS: Glucose,Whole Blood 178 mg/dL (75-99)
--- NOTE | 2021-07-27 16:29 | P.PN ---
Subjective Progress Note Date: 07/27/21 Principal diagnosis: Urinary tract infection Patient is a 70-year-old male presenting to the hospital with generalized weakness no energy did have some urinary burning and suprapubic pain did have a positive UA, CT angiogram of the chest was negative for PE or pneumonia, CT abdominal pelvis was negative for any acute pathology. On today's evaluation that is 07/27/2021, the patient did have a low-grade fever 100.2 around 2 AM the patient is afebrile since then, the patient is complaining of a headache about 4 out of 10, no nausea or vomiting the patient know that he is at [facility] and no mental status changes has been reported no chest pain or shortness of breath occasional cough no abdominal pain or diarrhea Objective - Vital Signs Vital signs: Vital Signs Temp 98.2 F 07/27/21 13:59 Pulse 83 07/27/21 13:59 Resp 18 07/27/21 13:59 BP 124/75 07/27/21 13:59 Pulse Ox 94 L 07/27/21 13:59 Intake & Output 07/26/21 07/27/21 07/27/21 18:59 06:59 18:59 Other: Voiding Method Toilet Urinal # Voids 5 1 # Bowel Movements 2 - Exam GENERAL DESCRIPTION: An elderly male lying in bed in no distress RESPIRATORY SYSTEM: Unlabored breathing , decreased breath sounds at bases HEART: S1 S2 regular rate and rhythm , ABDOMEN: Soft , no tenderness EXTREMITIES: No edema feet - Labs CBC & Chem 7: 07/27/21 04:27 07/27/21 04:27 Labs: Abnormal Lab Results - Last 24 Hours (Table) 07/26/21 07/26/21 07/27/21 Range/Units 16:31 20:10 04:27 WBC 22.24 H (4.50-10.00) X 10*3/uL RBC 4.01 L (4.40-5.60) X 10*6/uL Hgb 12.3 L (13.0-17.0) g/dL Hct 37.2 L (39.6-50.0) % Immature Gran # 0.15 H (0.00-0.04) X 10*3/uL Neutrophils # 18.18 H (1.80-7.70) X 10*3/uL Monocytes # 1.79 H (0.20-1.00) X 10*3/uL Glucose (70-110) mg/dL POC Glucose (mg/dL) 171 H 108 H (75-99) mg/dL Calcium (8.7-10.3) mg/dL AST (14-35) U/L Total Protein (6.2-8.2) g/dL 07/27/21 07/27/21 07/27/21 Range/Units 04:27 06:52 11:08 WBC (4.50-10.00) X 10*3/uL RBC (4.40-5.60) X 10*6/uL Hgb (13.0-17.0) g/dL Hct (39.6-50.0) % Immature Gran # (0.00-0.04) X 10*3/uL Neutrophils # (1.80-7.70) X 10*3/uL Monocytes # (0.20-1.00) X 10*3/uL Glucose 122 H (70-110) mg/dL POC Glucose (mg/dL) 114 H 177 H (75-99) mg/dL Calcium 8.5 L (8.7-10.3) mg/dL AST 12 L (14-35) U/L Total Protein 6.1 L (6.2-8.2) g/dL Microbiology - Last 24 Hours (Table) 07/26/21 09:00 Urine Culture - Final Urine,Clean Catch 07/24/21 19:00 Blood Culture - Preliminary Blood No Growth after 48 hours 07/24/21 19:17 Blood Culture - Preliminary Blood No Growth after 48 hours Assessment and Plan (1) Sepsis Current Visit: Yes Status: Acute Code(s): A41.9 - SEPSIS, UNSPECIFIED ORGANISM SNOMED Code(s): 06003326 Plan: 1patient presented to hospital with weakness fever elevated white count meeting criteria for SIRS/sepsis source likely urinary tract infection likely from enteric gram-negative pathogen as the patient recently did have a cystoscopy in outpatient setting and did have a extensive workup including a CT of the chest that was negative for pneumonia CT abdominal pelvis was reportedly negative as well patient do not have any joint swelling or cellulitis, he did have mild headache but no neck rigidity and not behaving as a bacterial meningitis, cultures will be repeated as well as inflammatory marker and we'll switch antibiotics to Unasyn and monitor him closely, at the bedside questions were answered Time with Patient: Less than 30
[2021-07-27] MEDS: AMPICILLIN-SULBACTAM 3 GM in SODIUM CHLORIDE 0.9% 100 ML IVPB SCH (17:50)
[2021-07-27 20:54] LABS: Glucose,Whole Blood 166 mg/dL (75-99)
[2021-07-27] MEDS: BACLOFEN 10 MG TAB PO SCH (22:09)
[2021-07-27] MEDS: INSULIN DETEMIR (LEVEMIR) 100 UNIT/ML SYR SQ SCH (22:09)
[2021-07-28] MEDS: AMPICILLIN-SULBACTAM 3 GM in SODIUM CHLORIDE 0.9% 100 ML IVPB SCH ×5 (00:07→23:58)
[2021-07-28 00:37] LABS: Appearance,Urine Clear (Clear); Bilirubin,Urine Negative (Negative); Blood,Urine Negative (Negative); Color,Urine Light Yellow; Glucose,Urine (UA) Negative (Negative); Ketones,Urine Negative (Negative); Leukocyte Esterase,Urine Negative (Negative); Nitrite,Urine Negative (Negative); PH, Urine 5.5 (5.0-8.0); Protein,Urine Negative (Negative); Specific Gravity,Urine 1.005 (1.001-1.035); Urobilinogen,Urine <2.0 mg/dL (<2.0)
[2021-07-28 06:49] LABS: Glucose,Whole Blood 184 mg/dL (75-99)
[2021-07-28] MEDS: INSULIN ASPART (NovoLOG) 100 UNIT/ML VIAL SQ SCH ×7 (07:36→20:21)
[2021-07-28] MEDS: TAMSULOSIN 0.4 MG CAP.ER.24H PO SCH (07:36)
[2021-07-28] MEDS: PANTOPRAZOLE 40 MG TABLET PO SCH (07:36)
[2021-07-28] MEDS: MULTIVITAMINS, THERA 1 EACH TAB PO SCH (07:36)
[2021-07-28] MEDS: lisinopriL 20 MG TAB PO SCH (07:37)
[2021-07-28] MEDS: ATORVASTATIN 10 MG TAB PO SCH (07:37)
[2021-07-28] MEDS: PROPRANOLOL LA 60 MG CAP.SA.24H PO SCH (07:37)
[2021-07-28] MEDS: ASPIRIN 81 MG PO SCH (07:37)
[2021-07-28] MEDS: LINAGLIPTIN 5 MG TABLET PO SCH (07:37)
[2021-07-28 08:50] LABS: Basophils # (A) 0.06 X 10*3/uL (0.00-0.10); Basophils % (A) 0.4 %; Eosinophils # (A) 0.26 X 10*3/uL (0.04-0.35); Eosinophils % (A) 1.7 %; HCT 36.4 % (39.6-50.0); HGB 11.9 g/dL (13.0-17.0); Immature Grans, Automated 0.6 %; Lymphocytes # (A) 2.23 X 10*3/uL (0.90-5.00); Lymphocytes % (A) 14.8 %; MCH 30.3 pg (27.0-32.0); MCHC 32.7 g/dL (32.0-37.0); MCV 92.6 fL (80.0-97.0); Mean Platelet Volume 10.5 fL (9.5-12.2); Monocytes # (A) 1.12 X 10*3/uL (0.20-1.00); Monocytes % (A) 7.4 %; NRBC Per 100 WBC 0 /100 WBCS (0.0-0.0); Neutrophils # (A) 11.34 X 10*3/uL (1.80-7.70); Neutrophils % (A) 75.1 %; Platelet Count 180 X 10*3/uL (140-440); RBC 3.93 X 10*6/uL (4.40-5.60); RDW 12.9 % (11.5-14.5)
[2021-07-28 11:34] LABS: Glucose,Whole Blood 192 mg/dL (75-99)
--- NOTE | 2021-07-28 12:40 | P.PN ---
Progress Note - Text Progress Note Date: 07/28/21 The patient is currently receiving Unasyn, and his WBC count has decreased to 15.1. He has been afebrile for over 24 hours. He states that he is feeling better. His joint aches are improved. He denies dysuria but states that there is some sensation to void. Urine and blood cultures were negative. I do not believe he has a UTI, but it is reassuring to see that his condition is improving. I would not recommend making any changes in his management at this time.
[2021-07-28 16:29] LABS: Glucose,Whole Blood 96 mg/dL (75-99)
--- NOTE | 2021-07-28 17:58 | P.PN ---
Subjective Progress Note Date: 07/28/21 Principal diagnosis: Urinary tract infection Patient is a 70-year-old male presenting to the hospital with generalized weakness no energy did have some urinary burning and suprapubic pain did have a positive UA, CT angiogram of the chest was negative for PE or pneumonia, CT abdominal pelvis was negative for any acute pathology. On today's evaluation that is 07/28/2021, the patient is afebrile today, the patient is feeling much better today, the patient headache is resolved, the patient denies having any chest pain shortness of breath or cough no nausea no vomiting no abdominal pain or diarrhea Objective - Vital Signs Vital signs: Vital Signs Temp 98.2 F 07/28/21 14:50 Pulse 74 07/28/21 14:50 Resp 18 07/28/21 14:50 BP 146/76 07/28/21 14:50 Pulse Ox 97 07/28/21 14:50 Intake & Output 07/27/21 07/28/21 07/28/21 18:59 06:59 18:59 Intake Total 1080 200 Balance 1080 200 Intake: Intake, IV Titration 200 Amount Ampicillin-Sulbactam 3 gm 200 In Sodium Chloride 0.9% 100 ml @ 200 mls/hr IVPB Q6HR [facility] Rx#:[id number] Oral 1080 Other: Voiding Method Toilet Toilet Toilet Urinal Urinal Urinal # Voids 3 5 # Bowel Movements 1 - Exam GENERAL DESCRIPTION: An elderly male lying in bed in no distress RESPIRATORY SYSTEM: Unlabored breathing , decreased breath sounds at bases HEART: S1 S2 regular rate and rhythm , ABDOMEN: Soft , no tenderness EXTREMITIES: No edema feet - Labs CBC & Chem 7: 07/28/21 04:14 07/27/21 04:27 Labs: Abnormal Lab Results - Last 24 Hours (Table) 07/27/21 07/27/21 07/28/21 Range/Units 16:22 20:53 04:14 WBC (4.50-10.00) X 10*3/uL RBC (4.40-5.60) X 10*6/uL Hgb (13.0-17.0) g/dL Hct (39.6-50.0) % Immature Gran # (0.00-0.04) X 10*3/uL Neutrophils # (1.80-7.70) X 10*3/uL Monocytes # (0.20-1.00) X 10*3/uL POC Glucose (mg/dL) 178 H 166 H (75-99) mg/dL C-Reactive Protein (<1.0) mg/dL Procalcitonin 0.14 H (0.02-0.09) ng/mL 07/28/21 07/28/21 07/28/21 Range/Units 04:14 04:14 06:46 WBC 15.10 H (4.50-10.00) X 10*3/uL RBC 3.93 L (4.40-5.60) X 10*6/uL Hgb 11.9 L (13.0-17.0) g/dL Hct 36.4 L (39.6-50.0) % Immature Gran # 0.09 H (0.00-0.04) X 10*3/uL Neutrophils # 11.34 H (1.80-7.70) X 10*3/uL Monocytes # 1.12 H (0.20-1.00) X 10*3/uL POC Glucose (mg/dL) 184 H (75-99) mg/dL C-Reactive Protein 18.2 H (<1.0) mg/dL Procalcitonin (0.02-0.09) ng/mL 07/28/21 Range/Units 11:32 WBC (4.50-10.00) X 10*3/uL RBC (4.40-5.60) X 10*6/uL Hgb (13.0-17.0) g/dL Hct (39.6-50.0) % Immature Gran # (0.00-0.04) X 10*3/uL Neutrophils # (1.80-7.70) X 10*3/uL Monocytes # (0.20-1.00) X 10*3/uL POC Glucose (mg/dL) 192 H (75-99) mg/dL C-Reactive Protein (<1.0) mg/dL Procalcitonin (0.02-0.09) ng/mL Microbiology - Last 24 Hours (Table) 07/24/21 19:17 Blood Culture - Preliminary Blood No Growth after 72 hours 07/24/21 19:00 Blood Culture - Preliminary Blood No Growth after 72 hours Assessment and Plan (1) Sepsis Current Visit: Yes Status: Acute Code(s): A41.9 - SEPSIS, UNSPECIFIED ORGANISM SNOMED Code(s): 25973041 Plan: 1patient presented to hospital with weakness fever elevated white count meeting criteria for SIRS/sepsis source likely urinary tract infection likely from enteric gram-negative pathogen as the patient recently did have a cystosc opy in outpatient setting and did have a extensive workup including a CT of the chest that was negative for pneumonia CT abdominal pelvis was reportedly negative as well patient do not have any joint swelling or cellulitis, 2-patient has shown much clinical improvement over the last 24 hour with ad justment of his antibiotic to Unasyn should be continued while waiting for repeat culture be finalized Family the bedside questions were answered Time with Patient: Less than 30
[2021-07-28] MEDS: IBUPROFEN 400 MG TAB PO PRN (19:14)
[2021-07-28 20:08] LABS: Glucose,Whole Blood 187 mg/dL (75-99)
[2021-07-28] MEDS: INSULIN DETEMIR (LEVEMIR) 100 UNIT/ML SYR SQ SCH (20:22)
[2021-07-28] MEDS: BACLOFEN 10 MG TAB PO SCH (20:22)
--- NOTE | 2021-07-28 21:03 | P.PN ---
Subjective Progress Note Date: 07/27/21 Principal diagnosis: UTI/sepsis 70-year-old male patient admitted to the hospital with weakness and fever likely related to complicated UTI/sepsis; patient had a recent urological procedure done and suspected to be source of infection; IDs on board and patient is Broad- Spectrum Antibiotic; blood cultures and urine cultures obtained and pending; urology and infectious disease on board Objective - Vital Signs Vital signs: Vital Signs Temp 99.0 F 07/27/21 08:52 Pulse 80 07/27/21 08:52 Resp 18 07/27/21 08:52 BP 132/75 07/27/21 08:52 Pulse Ox 95 07/27/21 08:52 Intake & Output 07/26/21 07/27/21 07/27/21 18:59 06:59 18:59 Other: Voiding Method Toilet Urinal # Voids 5 1 # Bowel Movements 2 - Exam - Constitutional General appearance: Present: average body habitus, cooperative, no acute distre ss - EENT Eyes: Present: anicteric sclerae, EOMI, PERRLA, normal appearance ENT: Present: hearing grossly normal, normal oropharynx Ears: bilateral: normal - Neck Neck: Present: normal ROM. Absent: lymphadenopathy, rigidity, thyromegaly Carotids: negative: bruit present Thyroid: bilateral: normal size, negative: enlarged, nodule - Respiratory Respiratory: bilateral: CTA, negative: rales, rhonchi, wheezing - Cardiovascular Rhythm: regular Heart sounds: normal: S1, S2 Abnormal Heart Sounds: Absent: systolic murmur, diastolic murmur - Gastrointestinal General gastrointestinal: Present: normal bowel sounds, soft. Absent: distended, organomegaly, tenderness - Genitourinary Genitourinary Comment(s): deferred - Integumentary Integumentary: Present: normal turgor. Absent: jaundiced, rash, ulcer - Neurologic Neurologic: Present: CNII-XII intact. Absent: focal deficits - Musculoskeletal Musculoskeletal: Present: gait normal, strength equal bilaterally - Psychiatric Psychiatric: Present: A&O x's 3, appropriate affect, intact judgment & insight - Labs CBC & Chem 7: 07/28/21 04:14 07/27/21 04:27 Labs: Abnormal Lab Results - Last 24 Hours (Table) 07/26/21 07/26/21 07/27/21 Range/Units 16:31 20:10 04:27 WBC 22.24 H (4.50-10.00) X 10*3/uL RBC 4.01 L (4.40-5.60) X 10*6/uL Hgb 12.3 L (13.0-17.0) g/dL Hct 37.2 L (39.6-50.0) % Immature Gran # 0.15 H (0.00-0.04) X 10*3/uL Neutrophils # 18.18 H (1.80-7.70) X 10*3/uL Monocytes # 1.79 H (0.20-1.00) X 10*3/uL Glucose (70-110) mg/dL POC Glucose (mg/dL) 171 H 108 H (75-99) mg/dL Calcium (8.7-10.3) mg/dL AST (14-35) U/L Total Protein (6.2-8.2) g/dL 07/27/21 07/27/21 07/27/21 Range/Units 04:27 06:52 11:08 WBC (4.50-10.00) X 10*3/uL RBC (4.40-5.60) X 10*6/uL Hgb (13.0-17.0) g/dL Hct (39.6-50.0) % Immature Gran # (0.00-0.04) X 10*3/uL Neutrophils # (1.80-7.70) X 10*3/uL Monocytes # (0.20-1.00) X 10*3/uL Glucose 122 H (70-110) mg/dL POC Glucose (mg/dL) 114 H 177 H (75-99) mg/dL Calcium 8.5 L (8.7-10.3) mg/dL AST 12 L (14-35) U/L Total Protein 6.1 L (6.2-8.2) g/dL Microbiology - Last 24 Hours (Table) 07/26/21 09:00 Urine Culture - Final Urine,Clean Catch 07/24/21 19:00 Blood Culture - Preliminary Blood No Growth after 48 hours 07/24/21 19:17 Blood Culture - Preliminary Blood No Growth after 48 hours Assessment and Plan Assessment: 1. UTI/sepsis - Patient remains on IV antibiotics in form of Unasyn; urine culture and blood cultures are obtained and negative to date; we will monitor CBC, CRP and pro- calcitonin 2. History of recent urological procedure; patient has been evaluated by urology; underwent urinary flow studies and cystoscopy 1 week ago. He now presents with fever, weakness, and joint aches. Laboratory studies show evidence of leukocytosis, but the urinalysis was fairly unremarkable in both urine and blood cultures were negative. No further neurological recommendations at this time - Patient remains on Flomax 0.4 mg daily 3. Leukocytosis likely related to UTI; we will monitor CBC, CRP and pro- calcitonin 4. Hypertension; lisinopril 20 mg daily; Inderal LA 60 mg daily 5. Hyperlipidemia; Lipitor 10 mg by mouth daily 6. Diabetes mellitus type 2; controlled with insulin; patient takes 60 units of Levemir daily at bedtime along with tradjenta 5 mg daily and insulin aspart 22 units subcu before meals 3 times a day
--- NOTE | 2021-07-28 21:06 | P.PN ---
Subjective Progress Note Date: 07/28/21 Principal diagnosis: UTI/sepsis 70-year-old male patient admitted to the hospital with weakness and fever likely related to complicated UTI/sepsis; patient had a recent urological procedure done and suspected to be source of infection; IDs on board and patient is Broad- Spectrum Antibiotic; blood cultures and urine cultures obtained and pending; urology and infectious disease on board 07/28/2021; Patient is seen and evaluated in room at bedside; denies any specific complaints; patient reports feeling markedly improved Vital signs are reviewed and stable with a temperature of 98.2, pulse 74, respiration 18 and blood pressure of 146/76 Laboratory review shows WBC of 15.1, hemoglobin 11.9 and platelet count of 180 Initial urine and blood cultures have been negative; patient has shown much clinical improvement over the last 24 hour with adjustment of his antibiotic to Unasyn which should be continued per ID recommendations while waiting for repeat culture be finalized Objective - Vital Signs Vital signs: Vital Signs Temp 98.3 F 07/28/21 19:10 Pulse 69 07/28/21 19:10 Resp 16 07/28/21 19:10 BP 128/61 07/28/21 19:10 Pulse Ox 96 07/28/21 19:10 Intake & Output 07/28/21 07/28/21 07/29/21 06:59 18:59 06:59 Intake Total 200 Balance 200 Intake: Intake, IV Titration 200 Amount Ampicillin-Sulbactam 3 gm 200 In Sodium Chloride 0.9% 100 ml @ 200 mls/hr IVPB Q6HR [facility] Rx#:[id number] Other: Voiding Method Toilet Toilet Urinal Urinal # Voids 5 2 - Exam - Constitutional General appearance: Present: average body habitus, cooperative, no acute distress - EENT Eyes: Present: anicteric sclerae, EOMI, PERRLA, normal appearance ENT: Present: hearing grossly normal, normal oropharynx Ears: bilateral: normal - Neck Neck: Present: normal ROM. Absent: lymphadenopathy, rigidity, thyromegaly Carotids: negative: bruit present Thyroid: bilateral: normal size, negative: enlarged, nodule - Respiratory Respiratory: bilateral: CTA, negative: rales, rhonchi, wheezing - Cardiovascular Rhythm: regular Heart sounds: normal: S1, S2 Abnormal Heart Sounds: Absent: systolic murmur, diastolic murmur - Gastrointestinal General gastrointestinal: Present: normal bowel sounds, soft. Absent: distended, organomegaly, tenderness - Genitourinary Genitourinary Comment(s): deferred - Integumentary Integumentary: Present: normal turgor. Absent: jaundiced, rash, ulcer - Neurologic Neurologic: Present: CNII-XII intact. Absent: focal deficits - Musculoskeletal Musculoskeletal: Present: gait normal, strength equal bilaterally - Psychiatric Psychiatric: Present: A&O x's 3, appropriate affect, intact judgment & insight - Labs CBC & Chem 7: 07/28/21 04:14 07/27/21 04:27 Labs: Abnormal Lab Results - Last 24 Hours (Table) 07/27/21 07/28/21 07/28/21 Range/Units 20:53 04:14 04:14 WBC 15.10 H (4.50-10.00) X 10*3/uL RBC 3.93 L (4.40-5.60) X 10*6/uL Hgb 11.9 L (13.0-17.0) g/dL Hct 36.4 L (39.6-50.0) % Immature Gran # 0.09 H (0.00-0.04) X 10*3/uL Neutrophils # 11.34 H (1.80-7.70) X 10*3/uL Monocytes # 1.12 H (0.20-1.00) X 10*3/uL POC Glucose (mg/dL) 166 H (75-99) mg/dL C-Reactive Protein (<1.0) mg/dL Procalcitonin 0.14 H (0.02-0.09) ng/mL 07/28/21 07/28/21 07/28/21 Range/Units 04:14 06:46 11:32 WBC (4.50-10.00) X 10*3/uL RBC (4.40-5.60) X 10*6/uL Hgb (13.0-17.0) g/dL Hct (39.6-50.0) % Immature Gran # (0.00-0.04) X 10*3/uL Neutrophils # (1.80-7.70) X 10*3/uL Monocytes # (0.20-1.00) X 10*3/uL POC Glucose (mg/dL) 184 H 192 H (75-99) mg/dL C-Reactive Protein 18.2 H (<1.0) mg/dL Procalcitonin (0.02-0.09) ng/mL 07/28/21 Range/Units 20:05 WBC (4.50-10.00) X 10*3/uL RBC (4.40-5.60) X 10*6/uL Hgb (13.0-17.0) g/dL Hct (39.6-50.0) % Immature Gran # (0.00-0.04) X 10*3/uL Neutrophils # (1.80-7.70) X 10*3/uL Monocytes # (0.20-1.00) X 10*3/uL POC Glucose (mg/dL) 187 H (75-99) mg/dL C-Reactive Protein (<1.0) mg/dL Procalcitonin (0.02-0.09) ng/mL Microbiology - Last 24 Hours (Table) 07/27/21 17:07 Blood Culture - Preliminary Blood No Growth after 24 hours 07/24/21 19:17 Blood Culture - Preliminary Blood No Growth after 72 hours 07/24/21 19:00 Blood Culture - Preliminary Blood No Growth after 72 hours Assessment and Plan Assessment: 1. UTI/sepsis - Patient remains on IV antibiotics in form of Unasyn; urine culture and blood cultures are obtained and negative to date; we will monitor CBC, CRP and pro- calcitonin 2. History of recent urological procedure; patient has been evaluated by urology; underwent urinary flow studies and cystoscopy 1 week ago. He now presents with fever, weakness, and joint aches. Laboratory studies show evid ence of leukocytosis, but the urinalysis was fairly unremarkable in both urine and blood cultures were negative. No further neurological recommendations at this time - Patient remains on Flomax 0.4 mg daily 3. Leukocytosis likely related to UTI; we will monitor CBC, CRP and pro- calcitonin 4. Hypertension; lisinopril 20 mg daily; Inderal LA 60 mg daily 5. Hyperlipidemia; Lipitor 10 mg by mouth daily 6. Diabetes mellitus type 2; controlled with insulin; patient takes 60 units of Levemir daily at bedtime along with tradjenta 5 mg daily and insulin aspart 22 units subcu before meals 3 times a day
[2021-07-28 22:10] LABS: Glucose,Whole Blood 173 mg/dL (75-99)
[2021-07-29] MEDS: AMPICILLIN-SULBACTAM 3 GM in SODIUM CHLORIDE 0.9% 100 ML IVPB SCH ×4 (06:08→23:29)
[2021-07-29 06:51] LABS: Glucose,Whole Blood 98 mg/dL (75-99)
[2021-07-29] MEDS: INSULIN ASPART (NovoLOG) 100 UNIT/ML VIAL SQ SCH ×7 (07:14→20:39)
[2021-07-29] MEDS: TAMSULOSIN 0.4 MG CAP.ER.24H PO SCH (07:48)
[2021-07-29] MEDS: ASPIRIN 81 MG PO SCH (07:48)
[2021-07-29] MEDS: lisinopriL 20 MG TAB PO SCH (07:48)
[2021-07-29] MEDS: MULTIVITAMINS, THERA 1 EACH TAB PO SCH (07:48)
[2021-07-29] MEDS: PANTOPRAZOLE 40 MG TABLET PO SCH (07:48)
[2021-07-29] MEDS: PROPRANOLOL LA 60 MG CAP.SA.24H PO SCH (07:49)
[2021-07-29] MEDS: LINAGLIPTIN 5 MG TABLET PO SCH (07:49)
[2021-07-29] MEDS: ATORVASTATIN 10 MG TAB PO SCH (07:49)
[2021-07-29 08:49] LABS: Basophils # (A) 0.06 X 10*3/uL (0.00-0.10); Basophils % (A) 0.6 %; Eosinophils # (A) 0.38 X 10*3/uL (0.04-0.35); Eosinophils % (A) 3.6 %; HCT 37.1 % (39.6-50.0); HGB 11.8 g/dL (13.0-17.0); Immature Grans, Automated 0.8 %; Lymphocytes # (A) 1.89 X 10*3/uL (0.90-5.00); Lymphocytes % (A) 17.7 %; MCH 29.4 pg (27.0-32.0); MCHC 31.8 g/dL (32.0-37.0); MCV 92.5 fL (80.0-97.0); Mean Platelet Volume 10.2 fL (9.5-12.2); Monocytes # (A) 0.83 X 10*3/uL (0.20-1.00); Monocytes % (A) 7.8 %; NRBC Per 100 WBC 0 /100 WBCS (0.0-0.0); Neutrophils % (A) 69.5 %; Platelet Count 207 X 10*3/uL (140-440); RBC 4.01 X 10*6/uL (4.40-5.60); RDW 12.8 % (11.5-14.5); WBC 10.65 X 10*3/uL (4.50-10.00)
[2021-07-29 08:56] LABS: African American GFR (CKD) 98.9 (60.0-200.0); Anion Gap 12.5 mmol/L (10.00-18.00); BUN/Creat Ratio 17.18 Ratio (12.00-20.00); Blood Urea Nitrogen 15.6 mg/dL (9.0-27.0); Calcium 8.8 mg/dL (8.7-10.3); Carbon Dioxide 24.5 mmol/L (20.0-27.5); Non-African American GFR(CKD) 85.3 (60.0-200.0); Potassium 4.6 mmol/L (3.5-5.5)
--- NOTE | 2021-07-29 11:07 | P.PN ---
Progress Note - Text Progress Note Date: 07/29/21 The patient remains afebrile. His WBC count is decreased to 10.65. He denies dysuria. He reports mild urgency, and denies urge incontinence. The postvoid residual yesterday was 77 mL. He is urologically stable. Anticipate discharge home soon on oral antibiotics. The patient was recently given samples of Gemtesa to help with his urgency. He was advised to try those samples once he is feeling back to normal, and contact me by phone regarding his status. Please notify me if we can be of any further assistance during this hospitalization.
[2021-07-29 11:08] LABS: Glucose,Whole Blood 141 mg/dL (75-99)
[2021-07-29 16:16] LABS: Glucose,Whole Blood 94 mg/dL (75-99)
--- NOTE | 2021-07-29 17:54 | P.PN ---
Subjective Progress Note Date: 07/29/21 Principal diagnosis: Urinary tract infection Patient is a 70-year-old male presenting to the hospital with generalized weakness no energy did have some urinary burning and suprapubic pain did have a positive UA, CT angiogram of the chest was negative for PE or pneumonia, CT abdominal pelvis was negative for any acute pathology. On today's evaluation that is 07/29/2021, the patient remains to be afebrile, the patient continued to be better, the patient denies headache, the patient denies having any chest pain shortness of breath or cough no nausea no vomiting no abdominal pain or diarrhea Objective - Vital Signs Vital signs: Vital Signs Temp 97.8 F 07/29/21 15:10 Pulse 61 07/29/21 15:10 Resp 18 07/29/21 15:10 BP 115/59 07/29/21 15:10 Pulse Ox 97 07/29/21 15:10 Intake & Output 07/28/21 07/29/21 07/29/21 18:59 06:59 18:59 Other: Voiding Method Toilet Toilet Urinal Urinal # Voids 2 2 - Exam GENERAL DESCRIPTION: An elderly male lying in bed in no distress RESPIRATORY SYSTEM: Unlabored breathing , decreased breath sounds at bases HEART: S1 S2 regular rate and rhythm , ABDOMEN: Soft , no tenderness EXTREMITIES: No edema feet - Labs CBC & Chem 7: 07/29/21 05:16 07/29/21 05:16 Labs: Abnormal Lab Results - Last 24 Hours (Table) 07/28/21 07/28/21 07/29/21 Range/Units 20:05 21:50 05:16 WBC 10.65 H (4.50-10.00) X 10*3/uL RBC 4.01 L (4.40-5.60) X 10*6/uL Hgb 11.8 L (13.0-17.0) g/dL Hct 37.1 L (39.6-50.0) % MCHC 31.8 L (32.0-37.0) g/dL Immature Gran # 0.09 H (0.00-0.04) X 10*3/uL Eosinophils # 0.38 H (0.04-0.35) X 10*3/uL POC Glucose (mg/dL) 187 H 173 H (75-99) mg/dL 07/29/21 Range/Units 11:06 WBC (4.50-10.00) X 10*3/uL RBC (4.40-5.60) X 10*6/uL Hgb (13.0-17.0) g/dL Hct (39.6-50.0) % MCHC (32.0-37.0) g/dL Immature Gran # (0.00-0.04) X 10*3/uL Eosinophils # (0.04-0.35) X 10*3/uL POC Glucose (mg/dL) 141 H (75-99) mg/dL Microbiology - Last 24 Hours (Table) 07/24/21 19:17 Blood Culture - Preliminary Blood No Growth after 96 hours 07/24/21 19:00 Blood Culture - Preliminary Blood No Growth after 96 hours 07/27/21 17:07 Blood Culture - Preliminary Blood No Growth after 24 hours Assessment and Plan (1) Sepsis Current Visit: Yes Status: Acute Code(s): A41.9 - SEPSIS, UNSPECIFIED ORGANISM SNOMED Code(s): 62937885 Plan: 1patient presented to hospital with weakness fever elevated white count me eting criteria for SIRS/sepsis source likely urinary tract infection likely from enteric gram-negative pathogen as the patient recently did have a cystoscopy in outpatient setting and did have a extensive workup including a CT of the chest that was negative for pneumonia CT abdominal pelvis was reportedly negative as well patient do not have any joint swelling or cellulitis, 2-patient has shown much clinical improvement over the last 48 hour with adjustment of his antibiotic to Unasyn which will be continued while inpatient finishing therapy with oral Augmentin 10 days on discharge, questions and concerns were answered Time with Patient: Less than 30
[2021-07-29 20:31] LABS: Glucose,Whole Blood 145 mg/dL (75-99)
[2021-07-29] MEDS: BACLOFEN 10 MG TAB PO SCH (20:39)
[2021-07-29] MEDS: INSULIN DETEMIR (LEVEMIR) 100 UNIT/ML SYR SQ SCH (20:39)
[2021-07-30] MEDS: AMPICILLIN-SULBACTAM 3 GM in SODIUM CHLORIDE 0.9% 100 ML IVPB SCH ×2 (05:16→13:21)
[2021-07-30 07:16] LABS: Glucose,Whole Blood 128 mg/dL (75-99)
[2021-07-30] MEDS: INSULIN ASPART (NovoLOG) 100 UNIT/ML VIAL SQ SCH ×4 (07:31→13:21)
[2021-07-30 08:03] VITALS: TEMP 98.6
[2021-07-30] MEDS: LINAGLIPTIN 5 MG TABLET PO SCH (09:33)
[2021-07-30] MEDS: ASPIRIN 81 MG PO SCH (09:33)
[2021-07-30] MEDS: lisinopriL 20 MG TAB PO SCH (09:33)
[2021-07-30] MEDS: PROPRANOLOL LA 60 MG CAP.SA.24H PO SCH (09:34)
[2021-07-30] MEDS: PANTOPRAZOLE 40 MG TABLET PO SCH (09:34)
[2021-07-30] MEDS: MULTIVITAMINS, THERA 1 EACH TAB PO SCH (09:34)
[2021-07-30] MEDS: TAMSULOSIN 0.4 MG CAP.ER.24H PO SCH (09:34)
[2021-07-30] MEDS: ATORVASTATIN 10 MG TAB PO SCH (09:35)
[2021-07-30 11:29] LABS: Glucose,Whole Blood 244 mg/dL (75-99)
[2021-07-30 15:04] VITALS: BP 163/73; PULSE 65; RESP 18
--- NOTE | 2021-08-01 10:45 | P.DS ---
Providers Date of admission: 07/24/21 22:20 Expected date of discharge: 07/30/21 Attending physician: Sallie Sutton Consults: 07/24/21 22:21 Consult Physician Routine Consulting Provider: Jose Huang Consult Reason/Comments: sepsis eval, fever wo source Do you want consulting provider notified?: Yes 07/26/21 12:53 Consult Physician Urgent Consulting Provider: Blake Andrade Consult Reason/Comments: UTI, sepsis, recent cystoscopy in office Do you want consulting provider notified?: Yes Primary care physician: Areli Owens Hospital Course: Final diagnosis -UTI/sepsis -History of recent urological procedure; patient has been evaluated by urology; underwent urinary flow studies and cystoscopy 1 week ago -Leukocytosis likely related to UTI -Hypertension -Hyperlipidemia -Diabetes mellitus type 2; controlled with insulin Discharge disposition Patient is being discharged in a stable condition with guarded prognosis to home. Patient will follow-up with Dr. Owens in the outpatient setting upon discharge. Patient is to continue with oral Augmentin BID for 10 days and follow up with urology and ID as scheduled. Total time taken is greater than 35 minutes. Hospital Course This is a 70-year-old male who was recently admitted with fevers with sepsis and possible UTI and was being closely monitored. Patient was evaluated by urology and ID and was maintained on IV antibiotics and responded. Cultures were negative and patient will be continued on oral Augmentin twice daily for 10 days with close outpatient follow up with Dr. Sal ROSAS and urology Dr. Andrade in one week. Patient feeling much better and would like to go home. Currently no reports of chest pain, shortness of breath, or palpitations. Patient is afebrile. No reports of nausea or vomiting and patient is tolerating diet. Patient will be discharged home today. On exam vital signs are stable. Cardio S1, S2 are muffled. Respiratory system shows diminished breath sounds at the bases with no wheezing or rhonchi noted. Abdomen is soft and obese, and nontender. Nervous system shows no focal deficits. Please refer to medication reconciliation sheet for a list of medications. The impression and plan of care has been dictated by Nellie Rivera, Nurse Practitioner as directed. MD Wilfrid I have performed a history and examination and MDM of this patient, discussed the same with the dictator, and agree with the dictator's assessment and plan as written ,documented as a scribe. Based on total visit time, I have performed more than 50% of the visit. Patient Condition at Discharge: Stable Plan - Discharge Summary Discharge Rx Participant: No New Discharge Prescriptions: New Amoxic-Pot Clav 875-125Mg [Augmentin 875-125] 1 tab PO Q12HR 10 Days #20 tab Ibuprofen [Motrin] 400 mg PO Q6HR PRN tab PRN Reason: Mild Pain Or Fever > 100.5 Acetaminophen Tab [Tylenol] 650 mg PO Q6HR PRN tab PRN Reason: Mild Pain Or Fever > 100.5 Pantoprazole [Protonix] 40 mg PO AC-BRKFST 30 Days #30 tab Continue Baclofen [Lioresal] 10 mg PO HS Levocetirizine Dihydrochloride [Xyzal] 5 mg PO HS PRN PRN Reason: allergies Insulin Aspart [NovoLOG Flexpen] 22 units SQ TID Tamsulosin [Flomax] 0.4 mg PO DAILY Aspirin 81 mg PO DAILY sitaGLIPtin [Januvia] 100 mg PO DAILY lisinopriL [Zestril] 20 mg PO DAILY Rosuvastatin Calcium 5 mg PO DAILY Multivit-Min/Folic/Vit K/Lycop [Men's Multivitamin Tablet] 1 tab PO DAILY Propranolol HCl [Propranolol HCl ER] 60 mg PO DAILY Vibegron [Gemtesa] 75 mg PO HS Insulin Detemir [Levemir Flextouch Pen] 60 units SQ HS Ginseng Complex 250mg 250 mg PO DAILY Discharge Medication List Aspirin 81 mg PO DAILY 03/20/21 [History] Baclofen [Lioresal] 10 mg PO HS 03/20/21 [History] Levocetirizine Dihydrochloride [Xyzal] 5 mg PO HS PRN 03/20/21 [History] Rosuvastatin Calcium 5 mg PO DAILY 03/20/21 [History] Tamsulosin [Flomax] 0.4 mg PO DAILY 03/20/21 [History] lisinopriL [Zestril] 20 mg PO DAILY 03/20/21 [History] sitaGLIPtin [Januvia] 100 mg PO DAILY 03/20/21 [History] Ginseng Complex 250mg 250 mg PO DAILY 07/24/21 [History] Insulin Aspart [NovoLOG Flexpen] 22 units SQ TID 07/24/21 [History] Insulin Detemir [Levemir Flextouch Pen] 60 units SQ HS 07/24/21 [History] Multivit-Min/Folic/Vit K/Lycop [Men's Multivitamin Tablet] 1 tab PO DAILY 07/24/21 [History] Propranolol HCl [Propranolol HCl ER] 60 mg PO DAILY 07/24/21 [History] Vibegron [Gemtesa] 75 mg PO HS 07/24/21 [History] Acetaminophen Tab [Tylenol] 650 mg PO Q6HR PRN tab 07/30/21 [Rx] Amoxic-Pot Clav 875-125Mg [Augmentin 875-125] 1 tab PO Q12HR 10 Days #20 tab 07/30/21 [Rx] Ibuprofen [Motrin] 400 mg PO Q6HR PRN tab 07/30/21 [Rx] Pantoprazole [Protonix] 40 mg PO AC-BRKFST 30 Days #30 tab 07/30/21 [Rx] Follow up Appointment(s)/Referral(s): Areli Owens MD [Primary Care Provider] - 08/03/21 1:30 pm Blake Andrade MD [STAFF PHYSICIAN] - 08/06/21 10:00 am Jose Huang MD [STAFF PHYSICIAN] - 08/07/21 1:45 pm Ambulatory/Diagnostic Orders: Complete Blood Count w/diff [LAB.AMB] Time Frame: 3 Days, Location: None Selected Patient Instructions/Handouts: Sepsis (DC) Activity/Diet/Wound Care/Special Instructions: Activity Limited until follow-up Follow-up with primary care provider on discharge Follow-up with urology outpatient Follow-up with infectious disease outpatient in one week Continue taking oral antibiotics twice daily for the next 10 days until finished Continue monitoring blood sugars and keep a diary for primary care follow-up Continue current diet Recommend repeat labs in 2-3 days Discharge Disposition: HOME SELF-CARE
== END 2021-07-30 16:01 | disposition home or self-care (01) | DRG 872 ==
LOC: EC 18:13 → 4SSUR 22:20
PROVIDERS: ADMIT Hospitalist; ATTEND Hospitalist
DX: A41.9 Sepsis, unspecified organism (principal); N39.0 Urinary tract infection, site not specified; E11.9 Type 2 diabetes mellitus without complications; Z79.4 Long term (current) use of insulin; Z20.822 Contact with and (suspected) exposure to COVID-19; E78.5 Hyperlipidemia, unspecified; I10 Essential (primary) hypertension; N40.0 Benign prostatic hyperplasia without lower urinary tract symptoms; K57.90 Diverticulosis of intestine, part unspecified, without perforation or abscess without bleeding; E29.1 Testicular hypofunction; M17.11 Unilateral primary osteoarthritis, right knee; E66.9 Obesity, unspecified; Z68.38 Body mass index [BMI] 38.0-38.9, adult; Z79.82 Long term (current) use of aspirin; Z79.84 Long term (current) use of oral hypoglycemic drugs; Z79.899 Other long term (current) drug therapy; Z87.442 Personal history of urinary calculi; Z87.39 Personal history of other diseases of the musculoskeletal system and connective tissue; Z86.010 Personal history of colon polyps; Z98.1 Arthrodesis status; Z96.1 Presence of intraocular lens; Z98.41 Cataract extraction status, right eye; Z98.42 Cataract extraction status, left eye; Z87.09 Personal history of other diseases of the respiratory system; Z98.890 Other specified postprocedural states; Z80.49 Family history of malignant neoplasm of other genital organs
CPT/HCPCS: 36415; 71046; 71275; 74176; 80048; 80053; 81001; 81003; 83605; 84145; 84484; 85025; 85379; 85652; 86140; 87040; 87086; 87502; 87635; 93005; 93970; 96365; 99291

== ENCOUNTER 2021-08-04 19:13 | Emergency (ER) | payer MEDICARE ==
[2021-08-04] MEDS ORDERED: ACETAMINOPHEN TAB 500 MG TAB PO STA (19:40)
[2021-08-04 19:50] VITALS: RESP 18
[2021-08-04] MEDS: SODIUM CHLORIDE 0.9% 500 ML 500 ML IV SCH ×2 (20:00→20:39)
--- NOTE | 2021-08-04 21:03 | XR ---
EXAMINATION TYPE: XR chest 2V DATE OF EXAM: 08/04/2021 COMPARISON: 07/24/2021 HISTORY: Fever TECHNIQUE: FINDINGS: Heart and mediastinum are normal. Lungs are clear. Diaphragm is normal. Bony thorax appears normal. IMPRESSION: Normal chest. No change.
--- NOTE | 2021-08-04 21:04 | ED ---
Fever HPI - General Chief Complaint: Fever Stated Complaint: SOB/Dizziness/Fever Time Seen by Provider: 08/04/21 19:37 Source: patient Mode of arrival: ambulatory Limitations: no limitations - History of Present Illness Initial Comments: This is a pleasant 70-year-old male with a history of diabetes mellitus, renal disease, hypertension, and other stated comorbidities. He presents to the emergency department today of a cough, shaking chills, and fever. Patient also complaining of body aches. Patient was admitted here for sepsis which was suspected to be secondary to urinary tract infection. Patient was admitted from July 24 of July 30 and discharged. Discharged on Augmentin which she is taking. Urine and blood cultures were negative. Patient was seen by urology and infectious disease while here. Patient denying any chest pain. Cough is dry and nonproductive. SHAKING chills with mild headache, fatigue no changes in vision or hearing, no sore throat or difficulty with speech, no neck pain, no chest pain or shortness of breath, no abdominal pain, no nausea or vomiting, no changes in urination or bowel movements, no numbness or tingling, no extremity pain, no skin rashes or lesions. - Related Data Home Medications Medication Instructions Recorded Confirmed Aspirin 81 mg PO DAILY 03/20/21 08/04/21 Baclofen [Lioresal] 10 mg PO HS 03/20/21 08/04/21 Levocetirizine Dihydrochloride 5 mg PO HS PRN 03/20/21 08/04/21 [Xyzal] Rosuvastatin Calcium 5 mg PO DAILY 03/20/21 08/04/21 Tamsulosin [Flomax] 0.4 mg PO DAILY 03/20/21 08/04/21 lisinopriL [Zestril] 20 mg PO DAILY 03/20/21 08/04/21 sitaGLIPtin [Januvia] 100 mg PO DAILY 03/20/21 08/04/21 Ginseng Complex 250mg 250 mg PO DAILY 07/24/21 08/04/21 Insulin Aspart [NovoLOG Flexpen] 22 units SQ TID 07/24/21 08/04/21 Insulin Detemir [Levemir Flextouch 60 units SQ HS 07/24/21 08/04/21 Pen] Multivit-Min/Folic/Vit K/Lycop 1 tab PO DAILY 07/24/21 08/04/21 [Men's Multivitamin Tablet] Propranolol HCl [Propranolol HCl 60 mg PO DAILY 07/24/21 08/04/21 ER] Vibegron [Gemtesa] 75 mg PO HS 07/24/21 08/04/21 Previous Rx's Medication Instructions Recorded Acetaminophen Tab [Tylenol] 650 mg PO Q6HR PRN tab 07/30/21 Amoxic-Pot Clav 875-125Mg 1 tab PO Q12HR 10 Days #20 tab 07/30/21 [Augmentin 875-125] Ibuprofen [Motrin] 400 mg PO Q6HR PRN tab 07/30/21 Pantoprazole [Protonix] 40 mg PO AC-BRKFST 30 Days #30 tab 07/30/21 Nirmatrelvir/Ritonavir [Paxlovid 3 each PO BID 5 Days #15 tab 08/04/21 Co-Pack (Eua)] Allergies Allergy/AdvReac Type Severity Reaction Status Date / Time No Known Allergies Allergy Verified 08/04/21 21:35 Review of Systems ROS Statement: Those systems with pertinent positive or pertinent negative responses have been documented in the HPI. ROS Other: All systems not noted in ROS Statement are negative. Past Medical History Past Medical History: Diabetes Mellitus, Hyperlipidemia, Hypertension, Osteoarthritis (OA), Prostate Disorder, Renal Disease, Sleep Apnea/CPAP/BIPAP Additional Past Medical History / Comment(s): IDDM type II, arthritis in R knee, occasional low back pain, bone chip in L knee, RAUL with Cpap, BPH, nephrolithias is-pt passed stones on his own, benign colon polyps, diverticular disease, nasal polyps History of Any Multi-Drug Resistant Organisms: None Reported Past Surgical History: Back Surgery Additional Past Surgical History / Comment(s): Recent cystoscopy, EGD, colonoscopies, lumbar back fusion, L shoulder fracture with surgery, L knee arthroscopy, sinus surgery for polyps, bilateral cataract removal with lens implants. Additional Past Anesthesia/Blood Transfusion Reaction / Comment(s): Slow to wake Past Psychological History: No Psychological Hx Reported Smoking Status: Never smoker Past Alcohol Use History: None Reported Past Drug Use History: None Reported - Past Family History Mother Family Medical History: Cancer Father Additional Family Medical History / Comment(s): Heart problems General Exam - General Exam Comments Initial Comments: Patient appears very mildly ill but not toxic. Vital signs are reviewed. Found to be febrile. SpO2 94% in room air. Remainder of vital signs are stable. Capillary refill less than 2 seconds. No modeling. Adequate perfusion. Good skin turgor. Moist mucous membranes. Cranial nerves II through XII grossly intact Limitations: no limitations General appearance: alert, in no apparent distress Head exam: Present: atraumatic, normocephalic, normal inspection Eye exam: Present: normal appearance, PERRL, EOMI. Absent: scleral icterus, conjunctival injection, periorbital swelling ENT exam: Present: normal exam, normal oropharynx, mucous membranes moist, TM's normal bilaterally, normal external ear exam Neck exam: Present: normal inspection. Absent: tenderness, meningismus, lymphadenopathy Respiratory exam: Present: normal lung sounds bilaterally. Absent: respiratory distress, wheezes, rales, rhonchi, stridor Cardiovascular Exam: Present: regular rate, normal rhythm, normal heart sounds. Absent: systolic murmur, diastolic murmur, rubs, gallop, clicks GI/Abdominal exam: Present: soft, normal bowel sounds. Absent: distended, tenderness, guarding, rebound, rigid Extremities exam: Present: normal inspection, full ROM, normal capillary refill. Absent: tenderness, pedal edema, joint swelling, calf tenderness Back exam: Present: normal inspection Neurological exam: Present: alert, oriented X3, CN II-XII intact Psychiatric exam: Present: normal affect, normal mood Skin exam: Present: warm, dry, intact, normal color. Absent: rash Course Vital Signs 08/04/21 08/04/21 08/04/21 19:26 19:35 20:29 Temperature 101.3 F H Pulse Rate 86 85 86 Respiratory 20 18 18 Rate Blood Pressure 124/63 141/72 148/79 O2 Sat by Pulse 94 L 96 96 Oximetry - Reevaluation(s) Reevaluation #1: 08/04/21 22:46 Medical record is reviewed Symptoms are improved here in the emergency department Patient is informed of results and questions answered Patient in no distress Medical Decision Making - Medical Decision Making Will initiate septic workup. Certainly with the patient's body aches, cough, COVID-19 is within the differential. Also influenza --unfortunately out of the influenza test. Bacterial infection also possible less likely as the patient has been on Augmentin. Patient's presenting symptoms to be more consistent with viral syndrome. Since repeat lactic acid was 1.6. Patient in no distress at discharge. The case was discussed in detail with ED attending physician. Presentation, findings, treatment plan discussed in detail. Dr. Reddy Patient counseled on quarantine measures. Patient was told to return to the ER for any signs or symptoms worsen. Told to return immediately if any other problems arise. All questions answered. Treatment plan discussed. Patient in agreement Every effort has been made to ensure accuracy of this dictation. However, due to the limitations of electronic medical records and dictation devices, errors in charting still occur. We'll treat the patient with Paxlovid. I'm going to forego any corticosteroids as the patient is diabetic.. I'm assuming that the symptoms started within the last 5 days. Although that is unclear with the patient's recent admission. - Lab Data Result diagrams: 08/04/21 20:27 08/04/21 20:27 Lab Results 08/04/21 08/04/21 08/04/21 Range/Units 20:27 20:27 20:27 WBC 10.3 (3.8-10.6) k/uL RBC 4.13 L (4.30-5.90) m/uL Hgb 12.9 L (13.0-17.5) gm/dL Hct 37.5 L (39.0-53.0) % MCV 91.0 (80.0-100.0) fL MCH 31.2 (25.0-35.0) pg MCHC 34.3 (31.0-37.0) g/dL RDW 12.8 (11.5-15.5) % Plt Count 248 (150-450) k/uL MPV 7.2 Neutrophils % 80 % Lymphocytes % 9 % Monocytes % 6 % Eosinophils % 4 % Basophils % 1 % Neutrophils # 8.2 H (1.3-7.7) k/uL Lymphocytes # 0.9 L (1.0-4.8) k/uL Monocytes # 0.6 (0-1.0) k/uL Eosinophils # 0.4 (0-0.7) k/uL Basophils # 0.1 (0-0.2) k/uL Sodium 138 (137-145) mmol/L Potassium 4.3 (3.5-5.1) mmol/L Chloride 108 H (98-107) mmol/L Carbon Dioxide 22 (22-30) mmol/L Anion Gap 8 mmol/L BUN 18 (9-20) mg/dL Creatinine 0.82 (0.66-1.25) mg/dL Est GFR (CKD-EPI)AfAm >90 (>60 ml/min/1.73 sqM) Est GFR (CKD-EPI)NonAf 90 (>60 ml/min/1.73 sqM) Glucose 155 H (74-99) mg/dL Plasma Lactic Acid De (0.7-2.0) mmol/L Calcium 8.3 L (8.4-10.2) mg/dL Total Bilirubin 0.5 (0.2-1.3) mg/dL AST 30 (17-59) U/L ALT 40 (4-49) U/L Alkaline Phosphatase 62 (38-126) U/L Creatine Kinase 107 (55-170) U/L Troponin I (0.000-0.034) ng/mL C-Reactive Protein 1.0 H (<1.0) mg/dL Total Protein 6.6 (6.3-8.2) g/dL Albumin 3.8 (3.5-5.0) g/dL Urine Color Yellow Urine Appearance Clear (Clear) Urine pH 5.5 (5.0-8.0) Ur Specific [place] 1.027 (1.001-1.035) Urine Protein Negative (Negative) Urine Glucose (UA) Negative (Negative) Urine Ketones Negative (Negative) Urine Blood Negative (Negative) Urine Nitrite Negative (Negative) Urine Bilirubin Negative (Negative) Urine Urobilinogen <2.0 (<2.0) mg/dL Ur Leukocyte Esterase Negative (Negative) Coronavirus (PCR) (Not Detectd) Heterophile Antibody (Negative) 08/04/21 08/04/21 08/04/21 Range/Units 20:27 20:27 20:27 WBC (3.8-10.6) k/uL RBC (4.30-5.90) m/uL Hgb (13.0-17.5) gm/dL Hct (39.0-53.0) % MCV (80.0-100.0) fL MCH (25.0-35.0) pg MCHC (31.0-37.0) g/dL RDW (11.5-15.5) % Plt Count (150-450) k/uL MPV Neutrophils % % Lymphocytes % % Monocytes % % Eosinophils % % Basophils % % Neutrophils # (1.3-7.7) k/uL Lymphocytes # (1.0-4.8) k/uL Monocytes # (0-1.0) k/uL Eosinophils # (0-0.7) k/uL Basophils # (0-0.2) k/uL Sodium (137-145) mmol/L Potassium (3.5-5.1) mmol/L Chloride (98-107) mmol/L Carbon Dioxide (22-30) mmol/L Anion Gap mmol/L BUN (9-20) mg/dL Creatinine (0.66-1.25) mg/dL Est GFR (CKD-EPI)AfAm (>60 ml/min/1.73 sqM) Est GFR (CKD-EPI)NonAf (>60 ml/min/1.73 sqM) Glucose (74-99) mg/dL Plasma Lactic Acid De 2.2 H* (0.7-2.0) mmol/L Calcium (8.4-10.2) mg/dL Total Bilirubin (0.2-1.3) mg/dL AST (17-59) U/L ALT (4-49) U/L Alkaline Phosphatase (38-126) U/L Creatine Kinase (55-170) U/L Troponin I <0.012 (0.000-0.034) ng/mL C-Reactive Protein (<1.0) mg/dL Total Protein (6.3-8.2) g/dL Albumin (3.5-5.0) g/dL Urine Color Urine Appearance (Clear) Urine pH (5.0-8.0) Ur Specific [place] (1.001-1.035) Urine Protein (Negative) Urine Glucose (UA) (Negative) Urine Ketones (Negative) Urine Blood (Negative) Urine Nitrite (Negative) Urine Bilirubin (Negative) Urine Urobilinogen (<2.0) mg/dL Ur Leukocyte Esterase (Negative) Coronavirus (PCR) Detected A (Not Detectd) Heterophile Antibody (Negative) 08/04/21 08/04/21 Range/Units 20:27 22:11 WBC (3.8-10.6) k/uL RBC (4.30-5.90) m/uL Hgb (13.0-17.5) gm/dL Hct (39.0-53.0) % MCV (80.0-100.0) fL MCH (25.0-35.0) pg MCHC (31.0-37.0) g/dL RDW (11.5-15.5) % Plt Count (150-450) k/uL MPV Neutrophils % % Lymphocytes % % Monocytes % % Eosinophils % % Basophils % % Neutrophils # (1.3-7.7) k/uL Lymphocytes # (1.0-4.8) k/uL Monocytes # (0-1.0) k/uL Eosinophils # (0-0.7) k/uL Basophils # (0-0.2) k/uL Sodium (137-145) mmol/L Potassium (3.5-5.1) mmol/L Chloride (98-107) mmol/L Carbon Dioxide (22-30) mmol/L Anion Gap mmol/L BUN (9-20) mg/dL Creatinine (0.66-1.25) mg/dL Est GFR (CKD-EPI)AfAm (>60 ml/min/1.73 sqM) Est GFR (CKD-EPI)NonAf (>60 ml/min/1.73 sqM) Glucose (74-99) mg/dL Plasma Lactic Acid De 1.6 (0.7-2.0) mmol/L Calcium (8.4-10.2) mg/dL Total Bilirubin (0.2-1.3) mg/dL AST (17-59) U/L ALT (4-49) U/L Alkaline Phosphatase (38-126) U/L Creatine Kinase (55-170) U/L Troponin I (0.000-0.034) ng/mL C-Reactive Protein (<1.0) mg/dL Total Protein (6.3-8.2) g/dL Albumin (3.5-5.0) g/dL Urine Color Urine Appearance (Clear) Urine pH (5.0-8.0) Ur Specific [place] (1.001-1.035) Urine Protein (Negative) Urine Glucose (UA) (Negative) Urine Ketones (Negative) Urine Blood (Negative) Urine Nitrite (Negative) Urine Bilirubin (Negative) Urine Urobilinogen (<2.0) mg/dL Ur Leukocyte Esterase (Negative) Coronavirus (PCR) (Not Detectd) Heterophile Antibody Negative (Negative) - EKG Data EKG Comments: EKG done at 1955 reveals a ventricular rate of 81, sinus rhythm with minimal T- wave flattening in lead V6 and V5. T-wave inversion in aVL. Minimal inversion in lead 1. Other than stated, no significant change from the previous study on July 24. Normal intervals. Normal axis. - Radiology Data Radiology results: report reviewed, image reviewed Disposition Clinical Impression: COVID-19, Fever Disposition: HOME SELF-CARE Condition: Good Instructions (If sedation given, give patient instructions): Fever in Adults (ED), COVID-19 (Coronavirus Disease 2019) (ED) Additional Instructions: SELF QUARANTINE DISCHARGE: As you are at risk for symptoms due to coronavirus, please stay home and stay away from others as much as possible. Please maintain social distance of 6 feet if possible. You should not return to work until at least 3 days (72 hours) have passed since recovery of symptoms. This defined as resolution of fever without the use of fever reducing medicines and improvement in respiratory symptoms (e.g,, cough, shortness of breath) Isolation can end at least 5 days after symptom onset and after fever ends for 24 hours (without the use of fever-reducing medication) and symptoms are improving, if these people can continue to properly wear a well-fitted mask around others for 5 more days after the 5-day isolation period. If you're still having symptoms at the end of 5 day period, isolate for an additional 5 days. More information about what to do if you are sick can be found on the CDC website at https://www.cdc.gov/coronavirus/2019-ncov/if-you-are- sick/xjxzs-hbkl-tenu.html Expect the symptoms to last for 7-14 days from onset. Use acetaminophen (Tylenol) as needed for discomfort. You can take a maximum of 1 gram every 6 hours for discomfort, with your total dose in 24 hours not exceeding 4 grams. Be sure to maintain hydration. Drink continuous water and/or items high in vitamin C, such as orange juice and/or lemonade. Unless you have high blood pressure, you may consider Sudafed (which is [id number]) for nasal congestion. I would suggest that a short acting Sudafed rather than the 24 hour Sudafed. For a cough you may take Mucinex or Robitussin. Also consider the use of Vicks Vapor Rub or your chest when you sleep. Use a humidifier that is cleaned frequently, in the bedroom at night. For Nausea /Vomiting/Diarrhea associated with your Illness: o Small frequent sips of room temperature liquids. o Diet: [place] Foods - If you are still experiencing discomfort and/or nausea please slowly advancing your diet using the BRAT Diet = bananas, rice, apples/apple sauce, toast. o With diarrhea avoid any dairy for 48 hours after symptoms resolved. o Continue with activity as tolerated. If your symptoms do get worse and you believe that the upper respiratory infection has developed into something else, such as pneumonia or severe dehydration, please return to the emergency department or follow-up with your primary care. But expect to be symptomatic for the days as indicated above Use Tylenol as needed for fever control. Prescriptions: Nirmatrelvir/Ritonavir [Paxlovid Co-Pack (Eua)] 3 each PO BID 5 Days #15 tab Is patient prescribed a controlled substance at d/c from ED?: No Referrals: Areli Owens MD [Primary Care Provider] - 08/07/21 Time of Disposition: 22:49
[2021-08-04 21:09] LABS: Basophils # (A) 0.1 k/uL (0-0.2); Basophils % (A) 1 %; Eosinophils # (A) 0.4 k/uL (0-0.7); Eosinophils % (A) 4 %; HCT 37.5 % (39.0-53.0); HGB 12.9 gm/dL (13.0-17.5); Lymphocytes # (A) 0.9 k/uL (1.0-4.8); Lymphocytes % (A) 9 %; MCH 31.2 pg (25.0-35.0); MCHC 34.3 g/dL (31.0-37.0); Mean Platelet Volume 7.2; Monocytes # (A) 0.6 k/uL (0-1.0); Monocytes % (A) 6 %; Neutrophils # (A) 8.2 k/uL (1.3-7.7); Neutrophils % (A) 80 %; Platelet Count 248 k/uL (150-450); RBC 4.13 m/uL (4.30-5.90); RDW 12.8 % (11.5-15.5); WBC 10.3 k/uL (3.8-10.6)
[2021-08-04 21:11] LABS: Appearance,Urine Clear (Clear); Bilirubin,Urine Negative (Negative); Blood,Urine Negative (Negative); Color,Urine Yellow; Glucose,Urine (UA) Negative (Negative); Ketones,Urine Negative (Negative); Leukocyte Esterase,Urine Negative (Negative); Nitrite,Urine Negative (Negative); PH, Urine 5.5 (5.0-8.0); Protein,Urine Negative (Negative); Specific Gravity,Urine 1.027 (1.001-1.035); Urobilinogen,Urine <2.0 mg/dL (<2.0)
[2021-08-04 21:24] LABS: ALT 40 U/L (4-49); AST 30 U/L (17-59); African American GFR (CKD) >90 (>60 ml/min/1.73 sqM); Albumin 3.8 g/dL (3.5-5.0); Alkaline Phosphatase 62 U/L (38-126); Anion Gap 8 mmol/L; Blood Urea Nitrogen 18 mg/dL (9-20); Calcium 8.3 mg/dL (8.4-10.2); Carbon Dioxide 22 mmol/L (22-30); Chloride 108 mmol/L (98-107); Creatine Kinase 107 U/L (55-170); Glucose 155 mg/dL (74-99); Non-African American GFR(CKD) 90 (>60 ml/min/1.73 sqM); Potassium 4.3 mmol/L (3.5-5.1); Sodium 138 mmol/L (137-145); Total Bilirubin 0.5 mg/dL (0.2-1.3); Total Protein 6.6 g/dL (6.3-8.2)
[2021-08-04 23:22] VITALS: BP 134/54; PULSE 84; TEMP 97.8
== END 2021-08-04 23:23 | disposition home or self-care (01) ==
LOC: EC 19:13
DX: U07.1 COVID-19 (principal); E11.9 Type 2 diabetes mellitus without complications; E78.5 Hyperlipidemia, unspecified; I10 Essential (primary) hypertension; M19.90 Unspecified osteoarthritis, unspecified site; Z79.82 Long term (current) use of aspirin; Z79.899 Other long term (current) drug therapy; Z79.84 Long term (current) use of oral hypoglycemic drugs; Z79.4 Long term (current) use of insulin
CPT/HCPCS: 36415; 71046; 80053; 81003; 82550; 83605; 84145; 84484; 85025; 86140; 86308; 87040; 87449; 87635; 93005; 96360; 96361; 99285

== ENCOUNTER → 2021-09-24 | Outpatient (CLI) | payer MEDICARE ==
--- NOTE | 2021-09-24 20:52 | MR ---
EXAMINATION TYPE: MR knee LT wo con DATE OF EXAM: 09/24/2021 COMPARISON: Left knee x-ray September 11, 2021 HISTORY: Left knee pain and swelling since 2020 due to injury. History of prior surgery. TECHNIQUE: Multiplanar, multisequence imaging of the left knee is performed without IV contrast. FINDINGS: MEDIAL MENISCUS: Truncated posterior horn with abnormal signal extending to the central body where th ere is focal defect. LATERAL MENISCUS: Anterior and posterior horns are intact without tear. CRUCIATE LIGAMENTS: The anterior and posterior cruciate ligaments are intact and unremarkable. COLLATERAL LIGAMENTS: The medial collateral ligament and lateral collateral ligament complex are inta ct and unremarkable. EXTENSOR MECHANISM: Visualized quadriceps and patellar tendons are intact. EFFUSION: Small to moderate size suprapatellar joint effusion. POPLITEAL CYST: No popliteal/ramirez cyst. TRICOMPARTMENT SPACES: Mild to moderate tricompartment joint space loss and mild spurring. CARTILAGE: Thinning of articular cartilage medial tibiofemoral compartment BONE MARROW SIGNAL: Heterogeneous diminished T1 and increased T2 signal medial tibiofemoral compartme nt involving medial aspect of the tibial plateau and to greater degree central aspect of the distal m edial femoral condyle OTHER: No additional significant abnormality is appreciated. IMPRESSION: 1. Suspect prior partial meniscectomy medial meniscus with suspected recurrent tearing in the posteri or horn. 2. Moderate tricompartment degenerative changes greatest in the medial tibiofemoral compartment as de tailed above. 3. Small to moderate-sized suprapatellar joint effusion.
== END | disposition home or self-care (01) ==
LOC: RADMRIMAIN 18:55
PROVIDERS: ATTEND Orthopaedic Surgery
DX: M25.462 Effusion, left knee (principal); M25.562 Pain in left knee

== ENCOUNTER → 2021-10-16 | Outpatient (CLI) | payer MEDICARE ==
[2021-10-16 10:43] LABS: Basophils # (A) 0.05 X 10*3/uL (0.00-0.10); Basophils % (A) 0.6 %; Eosinophils # (A) 0.43 X 10*3/uL (0.04-0.35); Eosinophils % (A) 4.8 %; HCT 42.4 % (39.6-50.0); HGB 13.9 g/dL (13.0-17.0); Immature Grans, Automated 0.6 %; Lymphocytes # (A) 2.16 X 10*3/uL (0.90-5.00); Lymphocytes % (A) 24.4 %; MCH 30.5 pg (27.0-32.0); MCHC 32.8 g/dL (32.0-37.0); MCV 93.2 fL (80.0-97.0); Mean Platelet Volume 11.5 fL (9.5-12.2); Monocytes # (A) 0.65 X 10*3/uL (0.20-1.00); Monocytes % (A) 7.3 %; NRBC Per 100 WBC 0 /100 WBCS (0.0-0.0); Neutrophils # (A) 5.53 X 10*3/uL (1.80-7.70); Neutrophils % (A) 62.3 %; Platelet Count 155 X 10*3/uL (140-440); RBC 4.55 X 10*6/uL (4.40-5.60); RDW 12.5 % (11.5-14.5); WBC 8.87 X 10*3/uL (4.50-10.00)
[2021-10-16 11:09] LABS: Anion Gap 10.4 mmol/L (10.00-18.00); Carbon Dioxide 24.6 mmol/L (20.0-27.5); Potassium 5.2 mmol/L (3.5-5.5)
== END | disposition home or self-care (01) ==
LOC: LABPAT 07:21
PROVIDERS: ATTEND Orthopaedic Surgery
DX: Z01.812 Encounter for preprocedural laboratory examination (principal); M23.92 Unspecified internal derangement of left knee
CPT/HCPCS: 80051; 85025

== ENCOUNTER 2021-10-31 10:40 | Day surgery (SDC) | payer MEDICARE ==
[2021-10-30 11:36] VITALS: BMI 36.6
--- NOTE | 2021-10-30 14:14 | HP ---
HISTORY AND PHYSICAL REASON FOR ADMISSION: Surgery scheduled 10/31/2021 HISTORY OF PRESENT ILLNESS: Kg Garcia is a 70-year-old patient seen with progressive left knee pain. We discussed options for treatment. He elected to proceed with left knee arthroscopy. Consent was obtained. PAST MEDICAL HISTORY: Insulin-dependent diabetes, hypertension, hyperlipidemia. PAST SURGICAL HISTORY: Sinus surgery, right shoulder arthroscopy, lumbar spine surgery. MEDICATIONS: Insulin, Januvia, lisinopril, atorvastatin. ALLERGIES: None. SOCIAL HISTORY: Denies tobacco use. PHYSICAL EVALUATION OF THE LEFT KNEE: Range of motion 0-135 degrees. Mild effusion. Tenderness along the medial joint line. Positive medial Joseph's. Ligaments are stable. Hip rotation is without pain. His distal neurovascular exam is intact. RADIOGRAPHS: Radiographs of the left knee reveal moderate osteoarthritic changes. MRI left knee revealed medial meniscal tear, osteoarthritis and effusion. IMPRESSION: 1. Internal derangement of left knee with medial meniscal tear. 2. Hypertension. 3. Hyperlipidemia. PLAN: Left knee arthroscopy with partial medial meniscectomy and debridement. Surgery scheduled for 10/31/2021. MMODL / IJN: [id number] /
[~2021-10-31 10:40] MED LIST changes: +DEXAMETHASONE SOD PHOSPHATE 4 MG/ML 1 ML VIAL IV ONE; +HYDROmorphone 0.5 MG/0.5 ML SYRINGE IVP PRN; -LIDOCAINE 1% (10MG/ML) FOR IV START INTRADERMA PRN; -ONDANSETRON 4 MG/2 ML VIAL IVP PRN
[2021-10-31 11:11] LABS: Glucose,Whole Blood 139 mg/dL (70-110)
[2021-10-31] MEDS ORDERED: MIDAZOLAM 2 MG/2 ML VIAL ONE (12:27)
[2021-10-31] MEDS ORDERED: fentaNYL (PF) 50 MCG/ML 2 ML AMP ONE (12:27)
[2021-10-31] MEDS ORDERED: KETOROLAC 15 MG/ML 1 ML VIAL ONE (12:27)
[2021-10-31] MEDS ORDERED: PROPOFOL 10 MG/ML 20 ML VIAL IV ONE (12:27)
[2021-10-31] MEDS ORDERED: LIDOCAINE 2% INJ 20 MG/ML (2 ML VIAL) ONE (12:27)
[2021-10-31] MEDS ORDERED: BUPIVACAINE (PF) 0.25% 30 ML VIAL INTRAARTIC ONE ×2 (12:55→13:10)
--- NOTE | 2021-10-31 13:26 | P.OP ---
Date of Procedure: 10/31/21 Preoperative Diagnosis: Internal derangement left knee Postoperative Diagnosis: 1. Tear medial and lateral meniscus left knee 2. Grade 4 chondromalacia medial femoral condyle left knee 3. Reactive synovitis medial, lateral and suprapatellar compartments left knee Procedure(s) Performed: 1. Arthroscopic partial medial and lateral meniscectomy left knee 2. Arthroscopic microfracture medial femoral condyle left knee 3. Arthroscopic partial synovectomy medial, lateral and suprapatellar compartments left knee Anesthesia: SUZANNEA, local Surgeon: Winston Raygoza Estimated Blood Loss (ml): 7 Pathology: none sent Condition: stable Disposition: PACU Indications for Procedure: 70-year-old patient seen with progressive left knee pain. After treatment options were discussed, he elected to proceed with arthroscopy. Operative Findings: See description of procedure Description of Procedure: Patient was taken to the operative suite. Patient underwent a general anesthetic by the department of anesthesia. Patient was given preoperative antibiotics. The left lower extremity was placed in a well-padded arthroscopic leg duckworth. The left leg was prepped and draped in the normal sterile orthopedic fashion. A lateral parapatellar and suprapatellar incision was made. Trochars were inserted. Arthroscopy was initiated. Suprapatellar pouch revealed diffuse thick reactive synovitis. The patellofemoral joint appeared to articulate congruently. There was no significant chondromalacia present. The scope was guided into the medial gutter. No loose bodies or plica were identified. The scope was then guided into the medial compartment. A medial parapatellar incision was made. Trocar inserted followed by probe. There was a complex tear involving the posterior horn and midbody of the medial meniscus. There was thick reactive synovitis anteriorly. There were grade 3 chondromalacia changes of the medial femoral condyle and grade 3/4 chondromalacia changes of the medial tibial plateau. I performed a partial medial meniscectomy getting down to stable meniscal tissue. I performed a partial synovectomy decompressing the thick reactive stress anteriorly. I performed a chondroplasty medial femoral condyle getting down to stable osteochondral tissue. I did note an area of exposed bone medial femoral condyle. There was weightbearing surface and measured about 8 mm in diameter. I introduced a microfracture awl and performed a microfracture to that area penetrating the bone with resultant bleeding at the microfracture site. The residual meniscus was probed and found to be stable. There was good de compression of synovitis. The osteochondral surface was stable. Scope and probe were then guided into the intercondylar notch. Cruciates were identified, probed and found to be stable. The scope and probe were then guided into lateral compartment. There was a radial tear involving the posterior horn lateral meniscus. There were mild grade 1 chondromalacia changes of lateral compartment. There was some thick reactive synovitis anteriorly. I performed a partial lateral meniscectomy getting down to stable meniscal tissue. I performed a partial synovectomy decompressing the reactive synovitis. The shaver was removed. The residual meniscus was stable. There was good decompression of the synovitis. The scope was in guided back into the suprapatellar compartment. I introduced a motorized shaver and into the suprapatellar compartment. I debrided some piecemeal fragments of meniscus I encountered. I performed a partial synovectomy. Shaver was removed. There was good decompression of the synovitis. I took one more look around the entire knee, no residual debris. Instruments were now removed from the joint. The joint was infiltrated with .25% Marcaine. Steri-Strips were applied to the portal sites. Sterile dressings were applied. The patient was placed into a SURESH hose. No tourniquet was utilized. The patient was awakened, transferred to a bed and taken to recovery stable satisfactory condition.
[2021-10-31 13:32] VITALS: RESP 16; TEMP 96.8
[2021-10-31] MEDS ORDERED: HYDROcodone/APAP 5-325MG 1 EACH TAB ONE (14:23)
[2021-10-31 14:31] VITALS: BP 164/78; PULSE 58
== END 2021-10-31 15:18 | disposition home or self-care (01) ==
LOC: OR 10:40
PROVIDERS: ATTEND Orthopaedic Surgery
DX: M23.204 Derangement of unspecified medial meniscus due to old tear or injury, left knee (principal); M23.201 Derangement of unspecified lateral meniscus due to old tear or injury, left knee; M94.262 Chondromalacia, left knee; M65.862 Other synovitis and tenosynovitis, left lower leg; E11.9 Type 2 diabetes mellitus without complications; I10 Essential (primary) hypertension; E78.5 Hyperlipidemia, unspecified; G47.33 Obstructive sleep apnea (adult) (pediatric); Z79.4 Long term (current) use of insulin; Z79.899 Other long term (current) drug therapy; Z98.890 Other specified postprocedural states; Z79.82 Long term (current) use of aspirin
CPT/HCPCS: 29880; 29879; J2250; J1100; J0690; J2405; J3010; J1885; J2704; J2001

== ENCOUNTER 2022-04-01 08:06 | Observation (INO) | payer MEDICARE ==
[2022-03-27 11:27] VITALS: BMI 37.4
--- NOTE | 2022-03-31 12:55 | HP ---
HISTORY AND PHYSICAL DATE OF SURGERY: 04/01/2022. HISTORY OF PRESENT ILLNESS: Kg Garcia is a 71-year-old patient, seen with symptomatic left knee osteoarthritis. We discussed options for treatment. He elected to proceed with left total knee arthroplasty. Consent was obtained. Medical clearance was provided by Dr. Owens. PAST MEDICAL HISTORY: Insulin-dependent diabetes, hypertension, and hyperlipidemia. PAST SURGICAL HISTORY: Shoulder arthroscopy, sinus surgery, and spine surgery. DAILY MEDICATIONS: Insulin, Januvia, lisinopril, atorvastatin, and Motrin. ALLERGIES: None. SOCIAL HISTORY: Denies tobacco use. PHYSICAL EVALUATION OF LEFT KNEE: Range of motion 0 to 130. Mild effusion. Tenderness along the medial joint line. Crepitus in medial and patellofemoral compartments with range of motion. Genu varum deformity. Homans and Fransisco are negative. Distal neurovascular exam intact. IMAGING STUDIES: Left knee radiographs reveal severe osteoarthritic changes. IMPRESSION: 1. Left knee osteoarthritis. 2. Hypertension. 3. Hyperlipidemia. 4. Insulin-dependent diabetes. PLAN: Left total knee arthroplasty. MMODL / IJN: [id number] /
[~2022-04-01 08:06] MED LIST changes: +ACETAMINOPHEN TAB 500 MG TAB PO PRN; -HYDROmorphone 0.5 MG/0.5 ML SYRINGE IVP PRN; -LACTATED RINGERS 1,000 ML IV SCH; +LIDOCAINE 1% (10MG/ML) FOR IV START INTRADERMA PRN; +MELOXICAM 7.5 MG TAB PO PRN; +TRANEXAMIC ACID IN NACL,ISO-OS 1,000 MG in SALINE 1 100ML.BAG IVPB PRN
[2022-04-01] MEDS: LACTATED RINGERS 1,000 ML IV SCH (08:50)
[2022-04-01 09:00] LABS: Glucose,Whole Blood 173 mg/dL (70-110)
[2022-04-01] MEDS: MIDAZOLAM 2 MG/2 ML VIAL IV PRN ×2 (09:04→09:18)
[2022-04-01] MEDS ORDERED: METOCLOPRAMIDE 5 MG/ML 2 ML VIAL IVP ONE (09:04)
[2022-04-01] MEDS ORDERED: METOCLOPRAMIDE 5 MG/ML 2 ML VIAL ONE (09:05)
[2022-04-01 09:11] LABS: INR 0.9 (<1.2); Partial Thromboplastin Time 23.8 sec (22.0-30.0)
[2022-04-01] MEDS ORDERED: LIDOCAINE 2% INJ 20 MG/ML (2 ML VIAL) ONE (09:48)
[2022-04-01] MEDS ORDERED: SUCCINYLCHOLINE CHLORIDE 200 MG/10 ML VIAL IV ONE (09:48)
[2022-04-01] MEDS ORDERED: ROPIVACAINE 0.2%-NS ON-Q PUMP 1,090 MG, EMPTY PAIN BALL 1 EACH MISCELLANE PRN (09:48)
[2022-04-01] MEDS ORDERED: fentaNYL (PF) 50 MCG/ML 2 ML AMP ONE (09:48)
[2022-04-01] MEDS ORDERED: ePHEDrine 50 MG/ML 1 ML VIAL ONE (09:48)
[2022-04-01] MEDS ORDERED: ROPIVACAINE 5 MG/ML 30 ML VIAL ONE (09:48)
[2022-04-01] MEDS ORDERED: TRANEXAMIC ACID IN NACL,ISO-OS 1,000 MG/100 ML BAG ONE (09:48)
[2022-04-01] MEDS ORDERED: PROPOFOL 10 MG/ML 20 ML VIAL IV ONE (09:48)
[2022-04-01] MEDS ORDERED: HYDROmorphone (PF) 1 MG/ML ONE (09:48)
[2022-04-01] MEDS ORDERED: ROCURONIUM 10 MG/ML (5 ML VIAL) IV ONE (09:48)
[2022-04-01] MEDS ORDERED: NEOSTIGMINE 1 MG/ML 10 ML VIAL ONE (09:48)
[2022-04-01] MEDS ORDERED: GLYCOPYRROLATE 0.2 MG/ML 2 ML VIAL ONE (09:48)
--- NOTE | 2022-04-01 09:50 | P.ANPRN ---
Procedure Note - Anesthesia - Nerve Block Performed Left Adductor Canal Infusion Time Out Performed: Yes Date of Procedure: 04/01/22 Procedure Start Time: : Procedure Stop Time: : Location of Patient: PreOp Indication: Acute Post-Operative Pain, Dx/Pain Location (Left knee), Requested by Surgeon Specifically requested for management of pain by DrDaniel: Winston Raygoza Sedation Type: Sedate with meaningful contact maintained Preparation: Sterile Prep, Sterile Dressing Position: Supine Catheter: Indwelling Needle Types: Pajunk Needle Gauge: 18 Ultrasound used to visualize needle placement: Yes Ultrasound used to observe medication spread: Yes Injectate: 0.5% Ropivacaine (see comment for volume) (15 cc) Blood Aspirated: No Pain Paresthesia on Injection Noted: No Resistance on Injection: Normal Image Stored and Saved: Yes Events: Uneventful and Well Tolerated Left iPack Single Time Out Performed: Yes Date of Procedure: 04/01/22 Location of Patient: PreOp Indication: Acute Post-Operative Pain, Dx/Pain Location (Left knee), Requested by Surgeon Specifically requested for management of pain by DrDaniel: Winston Raygoza Sedation Type: Sedate with meaningful contact maintained Preparation: Sterile Prep Position: Right Lateral Catheter: None Needle Types: Pajunk Needle Gauge: 21 Ultrasound used to visualize needle placement: Yes Ultrasound used to observe medication spread: Yes Injectate: 0.5% Ropivacaine (see comment for volume) (15 cc) Blood Aspirated: No Pain Paresthesia on Injection Noted: No Resistance on Injection: Normal Image Stored and Saved: Yes Events: Uneventful and Well Tolerated
[2022-04-01] MEDS ORDERED: ceFAZolin 1,000 MG in SODIUM CHLORIDE 0.9% 1,000 ML IRRIGATION ONE (10:17)
[2022-04-01] MEDS ORDERED: LACTATED RINGERS 1,000 ML IV ONE (11:08)
[2022-04-01] MEDS ORDERED: HYDROmorphone 0.5 MG/0.5 ML SYRINGE IVP PRN ×2 (11:35)
[2022-04-01] MEDS ORDERED: HYDROcodone/APAP 5-325MG 1 EACH TAB PO PRN (11:35)
[2022-04-01] MEDS ORDERED: NALOXONE 0.4 MG/ML 1 ML VIAL IV PRN (11:35)
[2022-04-01] MEDS ORDERED: ONDANSETRON 4 MG/2 ML VIAL IVP PRN (11:35)
--- NOTE | 2022-04-01 11:35 | P.OP ---
Date of Procedure: 04/01/22 Preoperative Diagnosis: Left knee osteoarthritis Postoperative Diagnosis: Left knee osteoarthritis Procedure(s) Performed: Left total knee arthroplasty Implants: 1. Depuy attune size 6 left cruciate retaining cemented femur 2. Depuy attune size 6 fixed bearing cemented tibial baseplate 3. Depuy attune size 6 fixed bearing cruciate retaining 8 mm polyethylene tibial insert 4. Depuy attune 35 mm all polyethylene cemented patella Anesthesia: GETA, regional (Adductor canal catheter, Ipack block) Surgeon: Winston Raygoza Geriatric Physician #1: Michael Lauren Estimated Blood Loss (ml): 50 Pathology: other (Bone) Condition: stable Disposition: PACU Indications for Procedure: 71-year-old gentleman seen with symptomatic left knee osteoarthritis. After having treatment options discussed, he elected to proceed with total knee arthroplasty. Operative Findings: See description of procedure Description of Procedure: Patient was taken to the operative suite after having an adductor canal catheter placed by the department of anesthesia. Patient underwent a general anesthetic by the department of anesthesia. Patient was given preoperative IV intake antibiotics and TXA. A well-padded tourniquet was placed about the [] lower extremity. The lower extremity was then prepped and draped in the normal sterile orthopedic fashion. The extremity was elevated, a tourniquet was insufflated to 300. A standard anterior incision was made sharply through skin. Dissection was taken down through the subcutaneous soft tissues down to the extensor mechanism. A medial arthrotomy was performed, patella was everted and knee was flexed. There was advanced osteoarthritis noted. I introduced my distal intramedullary femoral drill. I then introduced the distal femoral cutting jig. Rao ASHER secured the cutting jig with 2 pins. I held retractors in position while Rao ASHER performed the distal femoral resection through the guide area we now removed her distal femoral cutting guide. We now placed our 4-in-1 femoral cutting block and positioned and it was secured with 2 pins by Rao ASHER while I held the block in position. The distal femoral finishing was now completed. A proximal tibial cutting guide was positioned. I held the guide in the appropriate position with both hands well Rao ASHER inserted stabilizing pins into the guide. Proximal tibial cut was made. We now placed a trial femoral component into position, along with an appropriate size tibial tray and insert. We now took the knee through range of motion and had full extension good flexion and good overall soft tissue balance noted. The patella was everted and stabilized with 2 towel clips held by Rao ASHER while I performed a flush with patellar quad tendon utilizing a fresh sawblade. We templated the patella, appropriate drill holes were made. An appropriate trial patella was positioned, knee was taken through full range of motion with the patella tracking very nicely. The trial patella was removed. Drill holes were made through the femoral component. All trial components were removed after marking off the appropriate rotation of the tibia. Retractors were now positioned along the proximal tibia. An appropriate keel punch was made with the appropriate size tibial guide by myself on Rao ASHER assisted by holding retractors. At this point appropriate size implants were chosen and opened. The joint was irrigated copiously with pulse lavage mechanical irrigation. The wound was irrigated with pulse lavage mechanical irrigation. We mixed antibiotic methylmethacrylate. We placed the knee into flexion. We placed multiple retractors assisted by Rao ASHER to expose the proximal tibia. Once the methyl methacrylate was ready, the tibial component was cemented into place removing any excess methylmethacrylate form by both myself and Rao ASHER. The femoral component was cemented into place removing the removing any excess methylmethacrylate performed by both myself and Rao ASHER. We then inserted the appropriate size polyethylene tibial insert. We made sure that it was locked into position. We took the knee into full extension, and then back in a flexion making sure we had removed any excess methylmethacrylate. The patellar component was then cemented down and secured with clamp. Excess methylmethacrylate removed. We kept the knee in full extension, patellar clamp in position until methylmethacrylate had hardened. Once it had hardened the patellar clamp was removed. The knee was taken through full range of motion. The patella tracked nicely. There was good soft tissue balancing. The tourniquet was now released. Additional hemostasis was achieved via electrocautery. A second gram of TXA was given. The wound again was irrigated with pulse lavage mechanical irrigation. The extensor mechanism was repaired with Ethibond suture. We checked the repair with range of motion and it was stable. The subcutaneous soft tissues were repaired with Vicryl in layers. The skin was approximated with pernio/Dermabond. Sterile dressings were applied followed by loose web roll and Raymond bandage. The patient was transferred to a bed, and taken to recovery in stable and satisfactory condition. Rao ASHER assisted with this complex procedure.
[2022-04-01] MEDS: HYDROmorphone 0.5 MG/0.5 ML SYRINGE IVP PRN ×3 (12:00→14:32)
[2022-04-01] MEDS ORDERED: KETOROLAC 15 MG/ML 1 ML VIAL IVP ONE (12:03)
[2022-04-01] MEDS ORDERED: INSULIN ASPART (NovoLOG) 100 UNIT/ML VIAL SQ ONE ×2 (12:20→13:25)
--- NOTE | 2022-04-01 12:24 | XR ---
EXAMINATION TYPE: XR knee limited LT DATE OF EXAM: 04/01/2022 COMPARISON: NONE TECHNIQUE: Two views submitted HISTORY: Post op FINDINGS: There is a prosthetic knee in near anatomic alignment. There is soft tissue edema and emphysema. IMPRESSION: 1. Postoperative change. Appears in near-anatomic alignment
[2022-04-01] MEDS ORDERED: ONDANSETRON 4 MG/2 ML VIAL IVP ONE (12:37)
[2022-04-01] MEDS ORDERED: LABETALOL 5 MG/ML VIAL MDV IVP ONE (13:00)
[2022-04-01] MEDS ORDERED: LORATADINE 10 MG TAB PO PRN (14:35)
[2022-04-01] MEDS ORDERED: DEXTROSE 50% SYRINGE 50 ML IVP PRN ×2 (14:39)
[2022-04-01 16:08] LABS: African American GFR (CKD) >90 (>60 ml/min/1.73 sqM); Anion Gap 8 mmol/L; Blood Urea Nitrogen 19 mg/dL (9-20); Calcium 8.3 mg/dL (8.4-10.2); Carbon Dioxide 24 mmol/L (22-30); Chloride 104 mmol/L (98-107); Glucose 223 mg/dL (74-99); Non-African American GFR(CKD) 87 (>60 ml/min/1.73 sqM); Potassium 4.8 mmol/L (3.5-5.1); Sodium 136 mmol/L (137-145)
[2022-04-01 16:29] LABS: Glucose,Whole Blood 211 mg/dL (70-110)
[2022-04-01] MEDS: lisinopriL 20 MG TAB PO SCH (17:15)
[2022-04-01] MEDS: TAMSULOSIN 0.4 MG CAP.ER.24H PO SCH (17:16)
[2022-04-01] MEDS: INSULIN ASPART (NovoLOG) 100 UNIT/ML VIAL SQ SCH ×2 (17:16→22:17)
[2022-04-01] MEDS: HYDROcodone/APAP 7.5-325MG 1 EACH TAB PO PRN (21:18)
[2022-04-01 21:42] LABS: Glucose,Whole Blood 211 mg/dL (70-110)
[2022-04-01] MEDS: Vibegron [Gemtesa] 75 MG Tablet PO SCH (22:16)
[2022-04-01] MEDS: SENNOSIDES-DOCUSATE SODIUM 1 EACH TAB PO SCH (22:17)
[2022-04-01] MEDS: INSULIN DETEMIR (LEVEMIR) 100 UNIT/ML SYR SQ SCH (22:17)
[2022-04-02] MEDS: HYDROmorphone 0.5 MG/0.5 ML SYRINGE IVP PRN ×3 (00:07→12:19)
[2022-04-02] MEDS: LACTATED RINGERS 1,000 ML IV SCH ×6 (01:55→22:12)
[2022-04-02] MEDS: HYDROcodone/APAP 7.5-325MG 1 EACH TAB PO PRN ×2 (05:03→21:04)
[2022-04-02] MEDS: ENOXAPARIN 30 MG/0.3 ML SYRINGE SQ SCH ×2 (05:05→17:28)
[2022-04-02 06:06] LABS: Glucose,Whole Blood 193 mg/dL (70-110)
[2022-04-02] MEDS: INSULIN ASPART (NovoLOG) 100 UNIT/ML VIAL SQ SCH ×4 (06:44→21:04)
[2022-04-02] MEDS: PROPRANOLOL LA 60 MG CAP.SA.24H PO SCH (08:59)
[2022-04-02] MEDS: lisinopriL 20 MG TAB PO SCH (08:59)
[2022-04-02] MEDS: TAMSULOSIN 0.4 MG CAP.ER.24H PO SCH (08:59)
[2022-04-02] MEDS: ATORVASTATIN 10 MG TAB PO SCH (08:59)
[2022-04-02 09:02] LABS: Basophils # (A) 0.02 X 10*3/uL (0.00-0.10); Basophils % (A) 0.1 %; Eosinophils # (A) 0 X 10*3/uL (0.04-0.35); Eosinophils % (A) 0 %; HCT 37.3 % (39.6-50.0); HGB 12.9 g/dL (13.0-17.0); Immature Grans, Automated 0.8 %; Lymphocytes # (A) 1.47 X 10*3/uL (0.90-5.00); MCH 31.3 pg (27.0-32.0); MCHC 34.6 g/dL (32.0-37.0); MCV 90.5 fL (80.0-97.0); Monocytes # (A) 1.47 X 10*3/uL (0.20-1.00); NRBC Per 100 WBC 0 /100 WBCS (0.0-0.0); Neutrophils # (A) 15.39 X 10*3/uL (1.80-7.70); Neutrophils % (A) 83.1 %; Platelet Count 157 X 10*3/uL (140-440); RBC 4.12 X 10*6/uL (4.40-5.60); RDW 12.3 % (11.5-14.5); WBC 18.49 X 10*3/uL (4.50-10.00)
[2022-04-02 09:18] LABS: African American GFR (CKD) 87.4 (60.0-200.0); Anion Gap 13.3 mmol/L (10.00-18.00); BUN/Creat Ratio 17.6 Ratio (12.00-20.00); Blood Urea Nitrogen 17.6 mg/dL (9.0-27.0); Calcium 8.7 mg/dL (8.7-10.3); Carbon Dioxide 23.7 mmol/L (20.0-27.5); Non-African American GFR(CKD) 75.4 (60.0-200.0); Potassium 4.6 mmol/L (3.5-5.5)
--- NOTE | 2022-04-02 09:38 | P.PN ---
Progress Note - Text Progress Note Date: 04/02/22 Postoperative day # 1 status post total knee arthroplasty, on adductor canal perineural catheter placed for postoperative analgesia. Ropivacaine 0.2% 8 mL per hour through ON-Q pump continuous infusion. Pain is well controlled. On visual analog scale 5/10 Patient is taking PRN oral pain medications. Catheter site: Looks Ok. There is no erythema or tenderness. Continue with the current pain management plan and will follow.
[2022-04-02 11:16] LABS: Glucose,Whole Blood 206 mg/dL (70-110)
[2022-04-02] MEDS ORDERED: MULTIVITAMINS, THERA 1 EACH TAB PO SCH (12:00)
--- NOTE | 2022-04-02 12:02 | P.CONS ---
History of Present Illness - Reason for Consult Consult date: 04/02/22 - History of Present Illness This is a 71 year old patient with diabetes mellitus, hypertension, hyperlipidemia, sleep apnea, enlarged prostate, multiple kidney stones. Patient underwent elective left knee total arthroplasty secondary to osteoarthritis. He is monitored today postoperative day #1 the medical floor. He does have some postoperative leukocytosis which will be monitored. Blood glucose in the 200s. Has remained afebrile postoperatively, blood pressure 134/63, on room air. He was continued on appropriate home medications. Reports 10/10 sharp pain to the left knee however does state that oral pain medication is bring pain down to a 2/10, he has ice pack in place. No shortness of breath or chest pain reported. Tolerating diet, passing gas. He is having issues with urinary retention, follows with Dr. Andrade for enlarged prostate. Maintained on flomax, if unable to void he will be discharge home with indwelling catheter to see urology in the office. Medically he can be discharge. REVIEW OF SYSTEMS: CONSTITUTIONAL: No fever, no malaise, no fatigue. HEENT: No recent visual problems or hearing problems. Denied any sore throat. CARDIOVASCULAR: No chest pain, orthopnea, PND, no palpitations, no syncope. PULMONARY: No shortness of breath, no cough, no hemoptysis. GASTROINTESTINAL: No diarrhea, no nausea, no vomiting, no abdominal pain. NEUROLOGICAL: No headaches, no weakness, no numbness. HEMATOLOGICAL: Denies any bleeding or petechiae. GENITOURINARY: Denies any burning micturition, frequency, or urgency. MUSCULOSKELETAL/RHEUMATOLOGICAL: Left knee pain, swelling. ENDOCRINE: Denies any polyuria or polydipsia. The rest of the 14-point review of systems is negative. PHYSICAL EXAMINATION: GENERAL: The patient is alert and oriented x3, not in any acute distress. Well developed, well nourished. HEENT: Pupils are round and equally reacting to light. EOMI. No scleral icterus. No conjunctival pallor. Normocephalic, atraumatic. No pharyngeal erythema. No thyromegaly. CARDIOVASCULAR: S1 and S2 present. No murmurs, rubs, or gallops. PULMONARY: Chest is clear to auscultation, no wheezing or crackles. ABDOMEN: Soft, nontender, nondistended, normoactive bowel sounds. No palpable organomegaly. MUSCULOSKELETAL: No joint swelling or deformity. Post surgical left knee with le ft lower extremity swelling. +2 peripheral pulses. EXTREMITIES: No cyanosis, clubbing, or pedal edema. NEUROLOGICAL: Gross neurological examination did not reveal any focal deficits. SKIN: No rashes. Assessment and plan Assessment Postoperative day 1 elective left total knee arthroplasty secondary to osteoarthritis Urinary retention postoperative Hypertension with urgency, improved History hyperlipidemia Diabetes mellitus with hyperglycemia, patient states usually controlled in the 130s at home. Sleep apnea Enlarged prostate maintained on flomax History kidney stones Never smoker GI prophylaxis DVT prophylaxis as per primary Full Code Plan Resume appropriate home medications. If unable to void, indwelling catheter will be inserted and patient to follow up with Dr. Andrade on discharge. Recommended to resume home glucose control medications. Cleared medically for discharge home. Follow up with primary care in 1 to 2 days, and follow up with orthopedics as recommended. Continue on bowel regimen especially while using narcotics for pain management. Encouraged to use incentive spirometer. Thank you for this consult. The impression and plan of care has been dictated by Beryl Weston, Nurse Practitioner as directed. Dr. Jessica MD I have performed a history and physical examination and medical decision making of this patient, discussed the same with the dictator, and agree with the dictators assessment and plan as written, documented as a scribe. Based on total visit time, I have performed more than 50% of this visit. Past Medical History Past Medical History: Diabetes Mellitus, Hearing Disorder / Deafness, Hyperlipidemia, Hypertension, Osteoarthritis (OA), Prostate Disorder, Renal Disease, Sleep Apnea/CPAP/BIPAP Additional Past Medical History / Comment(s): Occasional low back pain, mouth piece for Sleep Apnea, no longer uses CPAP, BPH, hx kidney stones, hx benign colon polyps, diverticular disease, nasal polyps, bilateral hearing aids. History of Any Multi-Drug Resistant Organisms: None Reported Past Surgical History: Back Surgery Additional Past Surgical History / Comment(s): Cystoscopy, EGD, colonoscopies, lumbar back fusion, right shoulder surgery, left knee arthroscopy X2, sinus surgery for polyps, bilateral cataract removal with lens implants. Additional Past Anesthesia/Blood Transfusion Reaction / Comm: Slow to wake up, except for with last surgery. Past Psychological History: No Psychological Hx Reported Additional Psychological History / Comment(s): Pt resides with his spouse. He is independent. Smoking Status: Never smoker Past Alcohol Use History: None Reported Past Drug Use History: None Reported - Past Family History Mother Family Medical History: Cancer Father Additional Family Medical History / Comment(s): Heart problems Medications and Allergies Home Medications Medication Instructions Recorded Confirmed Type Aspirin 81 mg PO BID 03/20/21 04/02/22 History Levocetirizine Dihydrochloride 5 mg PO HS PRN 03/20/21 03/27/22 History [Xyzal] Rosuvastatin Calcium 5 mg PO DAILY 03/20/21 03/27/22 History Tamsulosin [Flomax] 0.4 mg PO DAILY 03/20/21 03/27/22 History lisinopriL [Zestril] 20 mg PO QAM 03/20/21 03/27/22 History sitaGLIPtin [Januvia] 100 mg PO DAILY 03/20/21 03/27/22 History Insulin Aspart [NovoLOG Flexpen] 22 units SQ TID 07/24/21 03/27/22 History Insulin Detemir [Levemir Flextouch 60 units SQ HS 07/24/21 03/27/22 History Pen] Propranolol HCl [Propranolol HCl 60 mg PO QAM 07/24/21 03/27/22 History ER] Vibegron [Gemtesa] 75 mg PO HS 07/24/21 03/27/22 History Acetaminophen Tab [Tylenol] 650 mg PO Q6HR PRN tab 07/30/21 03/27/22 Rx Ibuprofen [Motrin] 400 mg PO Q6HR PRN tab 07/30/21 03/27/22 Rx Docusate [Colace] 100 mg PO DAILY #30 capsule 04/02/22 Rx HYDROcodone/APAP 7.5-325MG [Brandon 1 - 2 each PO Q6HR PRN #32 tab 04/02/22 Rx 7.5] Allergies Allergy/AdvReac Type Severity Reaction Status Date / Time No Known Allergies Allergy Verified 03/27/22 10:55 Physical Exam Vitals: Vital Signs Temp Pulse Pulse Resp BP Pulse Ox 04/02/22 07:54 98.9 F 79 16 134/63 93 L 04/02/22 02:00 98 F 74 20 131/78 95 04/01/22 22:35 97.9 F 80 20 179/70 96 04/01/22 20:35 97.7 F 73 20 190/83 97 04/01/22 20:00 97.6 F 72 20 194/82 97 04/01/22 15:38 62 169/99 95 04/01/22 15:23 74 170/99 96 04/01/22 15:08 63 180/83 95 04/01/22 14:53 58 L 166/97 96 04/01/22 14:48 62 16 04/01/22 14:38 59 L 173/92 90 L 04/01/22 14:35 97.4 F L 62 16 181/99 95 04/01/22 14:23 57 L 180/107 94 L 04/01/22 13:45 57 L 15 157/72 95 04/01/22 13:30 60 15 166/77 95 04/01/22 13:20 59 L 17 49/69 95 04/01/22 13:05 59 L 17 165/64 95 04/01/22 12:50 64 17 183/88 94 L 04/01/22 12:35 66 16 180/84 94 L 04/01/22 12:20 66 16 190/93 96 04/01/22 12:05 73 16 204/92 95 04/01/22 11:52 97.9 F 75 14 200/90 95 04/01/22 09:39 72 16 120/55 98 Intake and Output 04/01/22 04/02/22 04/02/22 22:59 06:59 14:59 Intake Total 480 1450 Output Total 700 850 Balance -220 600 Intake: Intake, IV Titration 1250 Amount Lactated Ringers 1,000 ml 1200 @ 100 mls/hr IV .Q10H TANO Rx#:[id number] ceFAZolin 2 gm In Sodium 50 Chloride 0.9% 50 ml @ 100 mls/hr IVPB Q8H TANO Rx#: [id number] Oral 480 200 Output: Urine 700 850 Straight 700 750 Results CBC & Chem 7: 04/02/22 05:35 04/02/22 05:35 Labs: Abnormal Lab Results - Last 24 Hours (Table) 04/01/22 04/01/22 04/01/22 Range/Units 15:13 15:13 16:27 WBC (4.50-10.00) X 10*3/uL RBC (4.40-5.60) X 10*6/uL Hgb (13.0-17.0) g/dL Hct (39.6-50.0) % Immature Gran # (0.00-0.04) X 10*3/uL Neutrophils # (1.80-7.70) X 10*3/uL Monocytes # (0.20-1.00) X 10*3/uL Eosinophils # (0.04-0.35) X 10*3/uL Sodium 136 L (137-145) mmol/L Glucose 223 H (74-99) mg/dL POC Glucose (mg/dL) 211 H (70-110) mg/dL Hemoglobin A1c 8.0 H (0.0-6.0) % Calcium 8.3 L (8.4-10.2) mg/dL 04/01/22 04/02/22 04/02/22 Range/Units 21:40 05:35 05:35 WBC 18.49 H (4.50-10.00) X 10*3/uL RBC 4.12 L (4.40-5.60) X 10*6/uL Hgb 12.9 L (13.0-17.0) g/dL Hct 37.3 L (39.6-50.0) % Immature Gran # 0.14 H (0.00-0.04) X 10*3/uL Neutrophils # 15.39 H (1.80-7.70) X 10*3/uL Monocytes # 1.47 H (0.20-1.00) X 10*3/uL Eosinophils # 0 L (0.04-0.35) X 10*3/uL Sodium (137-145) mmol/L Glucose 190 H (74-99) mg/dL POC Glucose (mg/dL) 211 H (70-110) mg/dL Hemoglobin A1c (0.0-6.0) % Calcium (8.4-10.2) mg/dL 04/02/22 Range/Units 06:04 WBC (4.50-10.00) X 10*3/uL RBC (4.40-5.60) X 10*6/uL Hgb (13.0-17.0) g/dL Hct (39.6-50.0) % Immature Gran # (0.00-0.04) X 10*3/uL Neutrophils # (1.80-7.70) X 10*3/uL Monocytes # (0.20-1.00) X 10*3/uL Eosinophils # (0.04-0.35) X 10*3/uL Sodium (137-145) mmol/L Glucose (74-99) mg/dL POC Glucose (mg/dL) 193 H (70-110) mg/dL Hemoglobin A1c (0.0-6.0) % Calcium (8.4-10.2) mg/dL Assessment and Plan Time with Patient: Less than 30
--- NOTE | 2022-04-02 13:06 | P.PN ---
Subjective Progress Note Date: 04/02/22 Principal diagnosis: Left knee osteoarthritis Patient was seen at bedside this morning sitting up in chair elevating lower extremities. Patient says he did get up physical therapy earlier this morning and walked around the room and the hallway. Patient says he does have a walker for home. Patient says he is having pain in the knee at this time. Patient states pain mostly on the medial and lateral sides. Patient says he has not been able to urinate on his own. Patient says he does follow up in the outpatient setting with Dr. Andrade. Patient says he has not had a bowel movement yet, however, patient says he has been passing gas. Patient denies chest pain, fever, shortness breath, nausea, vomiting, change in vision, loss of bowel/bladder control. Objective - Vital Signs Vital signs: Vital Signs Temp 98.9 F 04/02/22 07:54 Pulse 79 04/02/22 07:54 Resp 16 04/02/22 07:54 BP 134/63 04/02/22 07:54 Pulse Ox 93 L 04/02/22 07:54 FiO2 Intake & Output 04/01/22 04/02/22 04/02/22 18:59 06:59 18:59 Intake Total 2231 1450 Output Total 50 1550 Balance 2181 -100 Weight 106 kg Intake: IV 1751 Intake, IV Titration 1250 Amount Lactated Ringers 1,000 ml 1200 @ 100 mls/hr IV .Q10H TANO Rx#:[id number] ceFAZolin 2 gm In Sodium 50 Chloride 0.9% 50 ml @ 100 mls/hr IVPB Q8H TANO Rx#: [id number] Oral 480 200 Output: Urine 0 1550 Straight 1450 Estimated Blood Loss 50 - Exam Left knee: Incision is clean, dry, and intact. The silver foam dressing is in good condition. There is minimal soft tissue swelling and ecchymosis surrounding the medial and lateral aspects of the incision. Calf is soft, no tenderness with palpation. Plantar flexion, dorsiflexion, EHL, FHL are intact. Sensory exam to light touch throughout the extremity is intact, dorsal pedis pulses 2+. - Labs CBC & Chem 7: 04/02/22 05:35 04/02/22 05:35 Labs: Abnormal Lab Results - Last 24 Hours (Table) 04/01/22 04/01/22 04/01/22 Range/Units 15:13 15:13 16:27 WBC (4.50-10.00) X 10*3/uL RBC (4.40-5.60) X 10*6/uL Hgb (13.0-17.0) g/dL Hct (39.6-50.0) % Immature Gran # (0.00-0.04) X 10*3/uL Neutrophils # (1.80-7.70) X 10*3/uL Monocytes # (0.20-1.00) X 10*3/uL Eosinophils # (0.04-0.35) X 10*3/uL Sodium 136 L (137-145) mmol/L Glucose 223 H (74-99) mg/dL POC Glucose (mg/dL) 211 H (70-110) mg/dL Hemoglobin A1c 8.0 H (0.0-6.0) % Calcium 8.3 L (8.4-10.2) mg/dL 04/01/22 04/02/22 04/02/22 Range/Units 21:40 05:35 05:35 WBC 18.49 H (4.50-10.00) X 10*3/uL RBC 4.12 L (4.40-5.60) X 10*6/uL Hgb 12.9 L (13.0-17.0) g/dL Hct 37.3 L (39.6-50.0) % Immature Gran # 0.14 H (0.00-0.04) X 10*3/uL Neutrophils # 15.39 H (1.80-7.70) X 10*3/uL Monocytes # 1.47 H (0.20-1.00) X 10*3/uL Eosinophils # 0 L (0.04-0.35) X 10*3/uL Sodium (137-145) mmol/L Glucose 190 H (74-99) mg/dL POC Glucose (mg/dL) 211 H (70-110) mg/dL Hemoglobin A1c (0.0-6.0) % Calcium (8.4-10.2) mg/dL 04/02/22 Range/Units 06:04 WBC (4.50-10.00) X 10*3/uL RBC (4.40-5.60) X 10*6/uL Hgb (13.0-17.0) g/dL Hct (39.6-50.0) % Immature Gran # (0.00-0.04) X 10*3/uL Neutrophils # (1.80-7.70) X 10*3/uL Monocytes # (0.20-1.00) X 10*3/uL Eosinophils # (0.04-0.35) X 10*3/uL Sodium (137-145) mmol/L Glucose (74-99) mg/dL POC Glucose (mg/dL) 193 H (70-110) mg/dL Hemoglobin A1c (0.0-6.0) % Calcium (8.4-10.2) mg/dL Assessment and Plan Assessment: 1. Left knee osteoarthritis - Postoperative day 1 status post left total knee arthroplasty Plan: 1. Left knee osteoarthritis - patient still bedside this morning. Patient did do well with physical therapy this morning. Patient is in moderate amount of pain currently. We will have patient stay 1 more night for further evaluation. Patient also does have some urinary retention. Urology consulted. PVR ordered. We will continue to follow patient during a standard hospital. Plan for discharge home tomorrow with health services. 2. Appreciate medical management 3. Pain management - Lehr; Dilaudid 4. GI prophylaxis - senna in hospital. 5. DVT prophylaxis - Lovenox in hospital 6. PT/OT - weightbearing as tolerated walker 7. Encourage incentive spirometer use 8. Discharge planning - plan for home with health services tomorrow Time with Patient: Less than 30
--- NOTE | 2022-04-02 15:03 | P.CONS ---
History of Present Illness - Reason for Consult Consult date: 04/02/22 Urinary retention Requesting physician: Álvaro Moser - History of Present Illness This is a 71 year old patient with diabetes mellitus, hypertension, hyperlipidemia, sleep apnea, enlarged prostate, multiple kidney stones, and hypogonadism. He is well known to Dr. Andrade. The patient underwent an elective left knee total arthroplasty secondary to osteoarthritis on 04/01/22. Reports 10/10 sharp pain to the left knee however does state that oral pain medication is bring pain down to a 2/10. Has OnQ pain pump in place. He is having issues with urinary retention, follows with Dr. Andrade for enlarged prostate. Maintained on Flomax, if unable to void he will be discharge home with indwelling catheter to see urology in the office. Past Medical History Past Medical History: Diabetes Mellitus, Hearing Disorder / Deafness, Hyperlipidemia, Hypertension, Osteoarthritis (OA), Prostate Disorder, Renal Disease, Sleep Apnea/CPAP/BIPAP Additional Past Medical History / Comment(s): Occasional low back pain, mouth piece for Sleep Apnea, no longer uses CPAP, BPH, hx kidney stones, hx benign colon polyps, diverticular disease, nasal polyps, bilateral hearing aids. History of Any Multi-Drug Resistant Organisms: None Reported Past Surgical History: Back Surgery Additional Past Surgical History / Comment(s): Cystoscopy, EGD, colonoscopies, lumbar back fusion, right shoulder surgery, left knee arthroscopy X2, sinus surgery for polyps, bilateral cataract removal with lens implants. Additional Past Anesthesia/Blood Transfusion Reaction / Comm: Slow to wake up, except for with last surgery. Past Psychological History: No Psychological Hx Reported Additional Psychological History / Comment(s): Pt resides with his spouse. He is independent. Smoking Status: Never smoker Past Alcohol Use History: None Reported Past Drug Use History: None Reported - Past Family History Mother Family Medical History: Cancer Father Additional Family Medical History / Comment(s): Heart problems Medications and Allergies Home Medications Medication Instructions Recorded Confirmed Type Aspirin 81 mg PO BID 03/20/21 04/02/22 History Levocetirizine Dihydrochloride 5 mg PO HS PRN 03/20/21 03/27/22 History [Xyzal] Rosuvastatin Calcium 5 mg PO DAILY 03/20/21 03/27/22 History Tamsulosin [Flomax] 0.4 mg PO DAILY 03/20/21 03/27/22 History lisinopriL [Zestril] 20 mg PO QAM 03/20/21 03/27/22 History sitaGLIPtin [Januvia] 100 mg PO DAILY 03/20/21 03/27/22 History Insulin Aspart [NovoLOG Flexpen] 22 units SQ TID 07/24/21 03/27/22 History Insulin Detemir [Levemir Flextouch 60 units SQ HS 07/24/21 03/27/22 History Pen] Propranolol HCl [Propranolol HCl 60 mg PO QAM 07/24/21 03/27/22 History ER] Vibegron [Gemtesa] 75 mg PO HS 07/24/21 03/27/22 History Acetaminophen Tab [Tylenol] 650 mg PO Q6HR PRN tab 07/30/21 03/27/22 Rx Docusate [Colace] 100 mg PO DAILY #30 capsule 04/02/22 Rx HYDROcodone/APAP 7.5-325MG [[place] 1 - 2 each PO Q6HR PRN #32 tab 04/02/22 Rx 7.5] Multivitamins, Thera [Multivitamin 1 each PO DAILY@1200 tab 04/02/22 Rx (formulary)] Sennosides-Docusate Sodium 2 each PO HS PRN tab 04/02/22 Rx [Senokot-S] Allergies Allergy/AdvReac Type Severity Reaction Status Date / Time No Known Allergies Allergy Verified 03/27/22 10:55 Physical Exam Vitals: Vital Signs Temp Pulse Resp BP Pulse Ox 04/02/22 14:00 98.3 F 61 16 161/84 93 L 04/02/22 07:54 98.9 F 79 16 134/63 93 L 04/02/22 02:00 98 F 74 20 131/78 95 04/01/22 22:35 97.9 F 80 20 179/70 96 04/01/22 20:35 97.7 F 73 20 190/83 97 04/01/22 20:00 97.6 F 72 20 194/82 97 04/01/22 15:38 62 169/99 95 04/01/22 15:23 74 170/99 96 04/01/22 15:08 63 180/83 95 04/01/22 14:53 58 L 166/97 96 04/01/22 14:48 62 16 Intake and Output 04/01/22 04/02/22 04/02/22 22:59 06:59 14:59 Intake Total 480 1450 Output Total 700 850 700 Balance -220 600 -700 Intake: Intake, IV Titration 1250 Amount Lactated Ringers 1,000 ml 1200 @ 100 mls/hr IV .Q10H TANO Rx#:[id number] ceFAZolin 2 gm In Sodium 50 Chloride 0.9% 50 ml @ 100 mls/hr IVPB Q8H TANO Rx#: [id number] Oral 480 200 Output: Urine 700 850 700 Straight 700 750 700 Post Void Residual 0 Results CBC & Chem 7: 04/02/22 05:35 04/02/22 05:35 Labs: Abnormal Lab Results - Last 24 Hours (Table) 04/01/22 04/01/22 04/01/22 Range/Units 15:13 15:13 16:27 WBC (4.50-10.00) X 10*3/uL RBC (4.40-5.60) X 10*6/uL Hgb (13.0-17.0) g/dL Hct (39.6-50.0) % Immature Gran # (0.00-0.04) X 10*3/uL Neutrophils # (1.80-7.70) X 10*3/uL Monocytes # (0.20-1.00) X 10*3/uL Eosinophils # (0.04-0.35) X 10*3/uL Sodium 136 L (137-145) mmol/L Glucose 223 H (74-99) mg/dL POC Glucose (mg/dL) 211 H (70-110) mg/dL Hemoglobin A1c 8.0 H (0.0-6.0) % Calcium 8.3 L (8.4-10.2) mg/dL 04/01/22 04/02/22 04/02/22 Range/Units 21:40 05:35 05:35 WBC 18.49 H (4.50-10.00) X 10*3/uL RBC 4.12 L (4.40-5.60) X 10*6/uL Hgb 12.9 L (13.0-17.0) g/dL Hct 37.3 L (39.6-50.0) % Immature Gran # 0.14 H (0.00-0.04) X 10*3/uL Neutrophils # 15.39 H (1.80-7.70) X 10*3/uL Monocytes # 1.47 H (0.20-1.00) X 10*3/uL Eosinophils # 0 L (0.04-0.35) X 10*3/uL Sodium (137-145) mmol/L Glucose 190 H (74-99) mg/dL POC Glucose (mg/dL) 211 H (70-110) mg/dL Hemoglobin A1c (0.0-6.0) % Calcium (8.4-10.2) mg/dL 04/02/22 04/02/22 Range/Units 06:04 11:14 WBC (4.50-10.00) X 10*3/uL RBC (4.40-5.60) X 10*6/uL Hgb (13.0-17.0) g/dL Hct (39.6-50.0) % Immature Gran # (0.00-0.04) X 10*3/uL Neutrophils # (1.80-7.70) X 10*3/uL Monocytes # (0.20-1.00) X 10*3/uL Eosinophils # (0.04-0.35) X 10*3/uL Sodium (137-145) mmol/L Glucose (74-99) mg/dL POC Glucose (mg/dL) 193 H 206 H (70-110) mg/dL Hemoglobin A1c (0.0-6.0) % Calcium (8.4-10.2) mg/dL Assessment and Plan Assessment: The patient is POD #1 and states he has been unable to void after surgery. He can feel his bladder is full, but is unable to initiate a stream. Per the nursing staff, he was straight catheterized twice for 700ml and 800ml respectively, and then a Coude Reinoso catheter was placed and is now draining clear, yellow urine. Urinary flow studies and cystoscopy performed on 07/20/2021 showed no significant bladder outflow obstruction. The patient denies any flank pain or suprapubic pain. He has been very nauseated since surgery, but has not vomited. He is afebrile, vitals signs stable, and he is on RA. He has a hist ory or BPH and retention. The patient states that he normally takes 0.8mg Flomax daily and has not had any problems since. (1) Urinary retention Current Visit: Yes Status: Acute Code(s): R33.9 - RETENTION OF URINE, UNSPECIFIED SNOMED Code(s): 282661179 Plan: - Increase Flomax to 0.8 mg daily - Continue Gemtesa - Leave Reinoso catheter in place - August discharge patient home with Reinoso catheter - Follow up with Dr. Andrade in the office in one week for Reinoso removal Thank you for this consultation Impression and plan of care have been directed as dictated by the signing physician. Deb Smith nurse practitioner acting as scribe for signing physician. Deb Smith [facility] Palliative Care/Urology Spectralink [phone] Email: [email or web address] The patient has been evaluated and examined by me. I concur with the note by Deb Smith. The patient may go home with a catheter and be seen in the office in follow-up. He should remove his catheter 6 hours prior to the office visit. He has been instructed to do so. Robin Vazquez M.D.
[2022-04-02 16:20] LABS: Glucose,Whole Blood 236 mg/dL (70-110)
[2022-04-02 20:26] LABS: Glucose,Whole Blood 226 mg/dL (70-110)
[2022-04-02] MEDS: SENNOSIDES-DOCUSATE SODIUM 1 EACH TAB PO SCH (21:04)
[2022-04-02] MEDS: Vibegron [Gemtesa] 75 MG Tablet PO SCH (21:05)
[2022-04-02] MEDS: INSULIN DETEMIR (LEVEMIR) 100 UNIT/ML SYR SQ SCH (21:05)
[2022-04-03] MEDS: HYDROmorphone 0.5 MG/0.5 ML SYRINGE IVP PRN (01:42)
[2022-04-03 03:12] VITALS: RESP 18
[2022-04-03] MEDS: LACTATED RINGERS 1,000 ML IV SCH (04:28)
[2022-04-03 06:04] LABS: Glucose,Whole Blood 226 mg/dL (70-110)
[2022-04-03] MEDS: HYDROcodone/APAP 7.5-325MG 1 EACH TAB PO PRN ×2 (06:20→11:57)
[2022-04-03] MEDS: INSULIN ASPART (NovoLOG) 100 UNIT/ML VIAL SQ SCH (06:21)
[2022-04-03] MEDS: ENOXAPARIN 30 MG/0.3 ML SYRINGE SQ SCH (06:21)
[2022-04-03 08:29] VITALS: BP 150/82; PULSE 83; TEMP 98.4
[2022-04-03] MEDS ORDERED: TAMSULOSIN 0.4 MG CAP.ER.24H PO SCH (08:30)
[2022-04-03] MEDS: ATORVASTATIN 10 MG TAB PO SCH (08:54)
[2022-04-03] MEDS: lisinopriL 20 MG TAB PO SCH (08:54)
[2022-04-03] MEDS: PROPRANOLOL LA 60 MG CAP.SA.24H PO SCH (08:54)
[2022-04-03] MEDS ORDERED: LINAGLIPTIN 5 MG TABLET PO SCH (09:00)
[2022-04-03] MEDS ORDERED: amLODIPine 10 MG TAB PO SCH (10:30)
--- NOTE | 2022-04-03 10:32 | P.PN ---
Subjective Progress Note Date: 04/03/22 Principal diagnosis: Status post left total knee arthroplasty Patient was evaluated today at bedside, he was resting in his hospital chair. Patient has been ambulating with the assistance of a walker. Patient has been evaluated by urology, they're recommending leaving the Reinoso catheter and at this time and that they would follow up with him in the outpatient setting next week. Patient's knee pain is improved today with current medications. Currently he denies headaches, lightheadedness, chest pain or shortness of breath Objective - Vital Signs Vital signs: Vital Signs Temp 98.4 F 04/03/22 08:00 Pulse 83 04/03/22 08:00 Resp 18 04/03/22 08:00 BP 150/82 04/03/22 08:00 Pulse Ox 94 L 04/03/22 08:00 FiO2 Intake & Output 04/02/22 04/03/22 04/03/22 18:59 06:59 18:59 Intake Total 540 Output Total 700 2850 600 Balance -160 -2850 -600 Intake: Oral 540 Output: Urine 700 2850 600 Straight 700 Post Void Residual 0 Other: Voiding Method Indwelling Catheter - Exam Left lower extremity: Incision is clean, dry, and intact. The exofin fusion tape is in good condition. There is minimal soft tissue swelling and ecchymosis surrounding the medial and lateral aspects of the incision. Calf is soft, no tenderness with palpation. Plantar flexion, dorsiflexion, EHL, FHL are intact. Sensory exam to light touch throughout the extremity is intact, dorsal pedis pulses 2+. - Labs CBC & Chem 7: 04/02/22 05:35 04/02/22 05:35 Labs: Abnormal Lab Results - Last 24 Hours (Table) 04/02/22 04/02/22 04/02/22 Range/Units 11:14 16:19 20:22 POC Glucose (mg/dL) 206 H 236 H 226 H (70-110) mg/dL 04/03/22 Range/Units 06:00 POC Glucose (mg/dL) 226 H (70-110) mg/dL Assessment and Plan Assessment: Postoperative day #2 status post left total knee arthroplasty Plan: Pain control, plan for discharge home on oral medication DVT prophylaxis, aspirin 81 mg twice a day Follow-up with urology as instructed her urinary catheter management Showering instructions discussed, along with icing and elevating Home nurse/therapy after discharge Other medical specialty recommendations Discharge planning: Stable for discharge home today Time with Patient: Less than 30
--- NOTE | 2022-04-03 10:35 | P.DS ---
Providers Date of admission: 04/02/22 08:11 Expected date of discharge: 04/03/22 Attending physician: Winston Raygoza Consults: 04/01/22 11:35 Consult Physician Routine Consulting Provider: Sallie Sutton Consult Reason/Comments: Medical management Do you want consulting provider notified?: Yes 04/02/22 12:53 Consult Physician Routine Consulting Provider: Blake Andrade Consult Reason/Comments: urology management - urinary retention Do you want consulting provider notified?: Yes Primary care physician: Areli Owens Hospital Course: Date of admission: 04/01/2022 Date of discharge: 04/03/2022 Admission diagnosis: Status post left total knee arthroplasty Discharge diagnosis: Same Attending physician: Dr. Raygoza Surgical procedures: Left total knee arthroplasty Brief history: Patient is a 71-year-old male with a history of with a progressive primary left knee osteoarthritis. At this point patient has failed conservative treatment measures and has opted to proceed with a elective left total knee arthroplasty. Hospital course: Details of patient's surgery can be found in operative report. Patient tolerated the procedure well and was subsequently transported to orthopedic floor. Patient's orthopeidc and medical care was provided daily. Patient had daily laboratory tests performed for evaluation of overall blood counts. Patient had daily physical therapy to include strengthening range of motion as well as education with walker ambulation. Patient was treated with Lovenox for their postoperative DVT prophylaxis during their inpatient stay. Patient was noted to have a relatively uneventful postoperative course. Patient reported satisfactory pain control with oral pain medications by postoperative day 1. Patient showed satisfactory progress with physical therapy. Patient moved steadily through the program and had no difficulty meeting the goals by postoperative day 2. Given patient's otherwise satisfactory course and having met physical therapy goals, plan is to discharge patient home on postoperative day 2. Discharge condition/disposition: Patient will be discharged home in stable condition. Discharge medications: Instructions are given on resumption of patient's normal daily medications per primary care recommendation, in addition patient will be prescribed [place] 7.5 mg/325 mg, senna, Colace, multivitamin. Discharge instructions: 1. Wound care and infection precautions, keep incision dry and covered while showering, no lotions, creams, moisturizers. No soaking, tubs, pools, hottubs. Do not scrub over the incision. 2. Weight-bear as tolerated with walker / cane until follow-up. 3. Ice and elevate when necessary. Do not exceed 20 minutes per hour with ice pack. 4. Utilize compression sleeve until seen at first follow up appointment. 5. Visiting nursing care. 6. Home physical therapy including home CPM. 7. Pain meds and anticoagulants per prescription. 8. Pain medication has potential to cause constipation. Increase oral fluid and fiber intake. Contact primary care provider if you have not had a bowel movement within 48 hours after discharge 9. No anti-inflammatory medication until discussed at first post operative visit, this including Motrin, Aleve, Mobic, Diclofenac. 10. Follow up in office at 2 weeks postop with Rao Lauren PA-C/Álvaro Rosario 11. Follow up with your primary care doctor 7-10 days after discharge. 12. Contact [facility] with any questions, . Procedures: Left total knee arthroplasty Patient Condition at Discharge: Good Plan - Discharge Summary Discharge Rx Participant: Yes New Discharge Prescriptions: New Docusate [Colace] 100 mg PO DAILY #30 capsule Multivitamins, Thera [Multivitamin (formulary)] 1 each PO DAILY@1200 tab HYDROcodone/APAP 7.5-325MG [[place] 7.5] 1 - 2 each PO Q6HR PRN #32 tab PRN Reason: Pain Sennosides-Docusate Sodium [Senokot-S] 2 each PO HS PRN tab PRN Reason: Constipation Continue Levocetirizine Dihydrochloride [Xyzal] 5 mg PO HS PRN PRN Reason: allergies Insulin Aspart [NovoLOG Flexpen] 22 units SQ TID Acetaminophen Tab [Tylenol] 650 mg PO Q6HR PRN tab PRN Reason: Mild Pain Or Fever > 100.5 Tamsulosin [Flomax] 0.4 mg PO DAILY Aspirin 81 mg PO BID sitaGLIPtin [Januvia] 100 mg PO DAILY lisinopriL [Zestril] 20 mg PO QAM Rosuvastatin Calcium 5 mg PO DAILY Propranolol HCl [Propranolol HCl ER] 60 mg PO QAM Vibegron [Gemtesa] 75 mg PO HS Insulin Detemir [Levemir Flextouch Pen] 60 units SQ HS Discontinued Ibuprofen [Motrin] 400 mg PO Q6HR PRN tab PRN Reason: Mild Pain Or Fever > 100.5 Discharge Medication List Aspirin 81 mg PO BID 03/20/21 [History] Levocetirizine Dihydrochloride [Xyzal] 5 mg PO HS PRN 03/20/21 [History] Rosuvastatin Calcium 5 mg PO DAILY 03/20/21 [History] Tamsulosin [Flomax] 0.4 mg PO DAILY 03/20/21 [History] lisinopriL [Zestril] 20 mg PO QAM 03/20/21 [History] sitaGLIPtin [Januvia] 100 mg PO DAILY 03/20/21 [History] Insulin Aspart [NovoLOG Flexpen] 22 units SQ TID 07/24/21 [History] Insulin Detemir [Levemir Flextouch Pen] 60 units SQ HS 07/24/21 [History] Propranolol HCl [Propranolol HCl ER] 60 mg PO QAM 07/24/21 [History] Vibegron [Gemtesa] 75 mg PO HS 07/24/21 [History] Acetaminophen Tab [Tylenol] 650 mg PO Q6HR PRN tab 07/30/21 [Rx] Docusate [Colace] 100 mg PO DAILY #30 capsule 04/02/22 [Rx] HYDROcodone/APAP 7.5-325MG [[place] 7.5] 1 - 2 each PO Q6HR PRN #32 tab 04/02/22 [Rx] Multivitamins, Thera [Multivitamin (formulary)] 1 each PO DAILY@1200 tab 04/02/22 [Rx] Sennosides-Docusate Sodium [Senokot-S] 2 each PO HS PRN tab 04/02/22 [Rx] Follow up Appointment(s)/Referral(s): Areli Owens MD [Primary Care Provider] - 04/10/22 3:15 pm Blake Andrade MD [STAFF PHYSICIAN] - 3 Days (office will call with appointment time) [facility] [NON-STAFF] - As Needed (Please call [facility] once home to arrange delivery of the Continuous Passive Motion (CPM) machine. ) [facility], [NON-STAFF] - 1-2 Days ([facility] will call you to schedule your in home nursing and physical therapy visits.) Michael Lauren PAC [PHYSICIAN EXHAUST WORKER] - 04/17/22 1:40 pm Ambulatory/Diagnostic Orders: Complete Blood Count w/diff [LAB.AMB] Time Frame: 3 Days, Location: None Selected Patient Instructions/Handouts: Knee Replacement (DC) Activity/Diet/Wound Care/Special Instructions: Orthopedic Discharge Instructions: 1. Wound care and infection precautions, keep incision dry and covered while showering, no lotions, creams, moisturizers. No soaking, pools, hot tubs. Do not scrub over incision. 2. Weight-bear as tolerated with walker / cane until follow-up. 3. Ice and elevate when necessary. Do not exceed 20 minutes per hour with ice pack. 4. Utilize compression sleeve until seen at first follow up appointment. 5. Pain meds and anticoagulants per prescription. 6. Pain medication has potential to cause constipation. Increase oral fluid and fiber intake. Contact primary care provider if you have not had a bowel movement within 48 hours after discharge. 7. No anti-inflammatory medication until discussed at first post operative visit, this including Motrin, Aleve, Mobic, Diclofenac. 8. Follow up in office at 2 weeks postop with Rao Lauren PA-C / Álvaro Moser PA-C 9. Follow up with your primary care doctor 7-10 days after discharge. 10. Contact [facility] with any questions, . Keep incision clean, dry, intact. While showering, cover silver foam dressing was Saran wrap. Silver foam dressing may be removed in 7 days, 04/08/2022. Discharge Disposition: HOME WITH HOME HEALTH SERVICES
[2022-04-03 12:00] LABS: Glucose,Whole Blood 305 mg/dL (70-110)
--- NOTE | 2022-04-03 16:51 | P.PN ---
Subjective Progress Note Date: 04/03/22 This is a 71 year old patient with diabetes mellitus, hypertension, hyperlipidemia, sleep apnea, enlarged prostate, multiple kidney stones. Patient underwent elective left knee total arthroplasty secondary to osteoarthritis. He is monitored today postoperative day #1 the medical floor. He does have some postoperative leukocytosis which will be monitored. Blood glucose in the 200s. Has remained afebrile postoperatively, blood pressure 134/63, on room air. He was continued on appropriate home medications. Reports 10/10 sharp pain to the left knee however does state that oral pain medication is bring pain down to a 2/10, he has ice pack in place. No shortness of breath or chest pain reported. Tolerating diet, passing gas. He is having issues with urinary retention, follows with Dr. Andrade for enlarged prostate. Maintained on flomax, if unable to void he will be discharge home with indwelling catheter to see urology in the office. Medically he can be discharge. 04/03/2022 Patient is evaluated today postoperative day #2 left total knee. He is evaluated today sitting up in chair with at bedside. no acute events overnight. Reports leg swelling has improved. He had indwelling catheter inserted secondary to urinary retention and will follow up with Dr. Andrade on discharge. Blood pre ssure has improved down to 150s systolic recommend to monitor closely and follow up with primary care in 1 to 2 days. He is given script to repeat CBC in 2 to 3 days as well. Cleared medically for discharge. Review of Systems Constitutional: Denied any fatigue denied any fever. Cardio vascular: denied any chest pain, palpitations Gastrointestinal: denied any nausea, vomiting, diarrhea Pulmonary: Denied any shortness of breath cough Neurologic denied any new focal deficits All inpatient medications were reviewed and appropriate changes in these medications as dictated in the interval history and assessment and plan. PHYSICAL EXAMINATION: GENERAL: The patient is alert and oriented x3, not in any acute distress. Well developed, well nourished. HEENT: Pupils are round and equally reacting to light. EOMI. No scleral icterus. No conjunctival pallor. Normocephalic, atraumatic. No pharyngeal erythema. No thyromegaly. CARDIOVASCULAR: S1 and S2 present. No murmurs, rubs, or gallops. PULMONARY: Chest is clear to auscultation, no wheezing or crackles. ABDOMEN: Soft, nontender, nondistended, normoactive bowel sounds. No palpable organomegaly. MUSCULOSKELETAL: No joint swelling or deformity. Post surgical left knee +2 peripheral pulses. EXTREMITIES: No cyanosis, clubbing, or pedal edema. NEUROLOGICAL: Gross neurological examination did not reveal any focal deficits. SKIN: No rashes. Assessment and plan Assessment Postoperative day 2 elective left total knee arthroplasty secondary to osteoarthritis Urinary retention postoperative with indwelling catheter inserted Hypertension with urgency, improved History hyperlipidemia Diabetes mellitus with hyperglycemia, patient states usually controlled in the 130s at home. Sleep apnea Enlarged prostate maintained on flomax History kidney stones Never smoker GI prophylaxis DVT prophylaxis as per primary Full Code Plan Resume appropriate home medications. Indwelling catheter has been inserted and patient to follow up with Dr. Andrade on discharge. Recommended to resume home glucose control medications. Cleared medically for discharge home. Follow up with primary care in 1 to 2 days, and follow up with orthopedics as recommended. Continue on bowel regimen especially while using narcotics for pain management. Encouraged to use incentive spirometer. Thank you for this consult. The impression and plan of care has been dictated by Beryl Weston, Nurse Practitioner as directed. Dr. Jessica MD I have performed a history and physical examination and medical decision making of this patient, discussed the same with the dictator, and agree with the dictators assessment and plan as written, documented as a scribe. Based on total visit time, I have performed more than 50% of this visit. Objective - Vital Signs Vital signs: Vital Signs Temp 98.4 F 04/03/22 08:00 Pulse 83 04/03/22 08:54 Resp 18 04/03/22 08:54 BP 150/82 04/03/22 08:00 Pulse Ox 94 L 04/03/22 08:00 FiO2 Intake & Output 04/02/22 04/03/22 04/03/22 18:59 06:59 18:59 Intake Total 540 Output Total 700 2850 1200 Balance -160 -2850 -1200 Intake: Oral 540 Output: Urine 700 2850 1200 Straight 700 Post Void Residual 0 Other: Voiding Method Indwelling Catheter Indwelling Catheter - Labs CBC & Chem 7: 04/02/22 05:35 04/02/22 05:35 Labs: Abnormal Lab Results - Last 24 Hours (Table) 04/02/22 04/03/22 04/03/22 Range/Units 20:22 06:00 11:58 POC Glucose (mg/dL) 226 H 226 H 305 H (70-110) mg/dL Assessment and Plan Time with Patient: Less than 30
== END 2022-04-03 13:05 | disposition home health service (06) ==
LOC: OR 08:06 → 4SSUR 11:52 → OR 04-02 08:11 → 4SSUR 04-02 08:11
PROVIDERS: ADMIT Orthopaedic Surgery; ATTEND Orthopaedic Surgery
DX: M17.12 Unilateral primary osteoarthritis, left knee (principal); M21.162 Varus deformity, not elsewhere classified, left knee; N99.89 Other postprocedural complications and disorders of genitourinary system; R33.8 Other retention of urine; N40.1 Benign prostatic hyperplasia with lower urinary tract symptoms; I16.0 Hypertensive urgency; I10 Essential (primary) hypertension; E11.65 Type 2 diabetes mellitus with hyperglycemia; D72.829 Elevated white blood cell count, unspecified; E78.5 Hyperlipidemia, unspecified; G47.33 Obstructive sleep apnea (adult) (pediatric); G25.81 Restless legs syndrome; E11.319 Type 2 diabetes mellitus with unspecified diabetic retinopathy without macular edema; K57.90 Diverticulosis of intestine, part unspecified, without perforation or abscess without bleeding; E29.1 Testicular hypofunction; H91.90 Unspecified hearing loss, unspecified ear; Z79.82 Long term (current) use of aspirin; Z79.84 Long term (current) use of oral hypoglycemic drugs; Z79.899 Other long term (current) drug therapy; Z79.4 Long term (current) use of insulin; Z98.890 Other specified postprocedural states; Z87.442 Personal history of urinary calculi; Z86.010 Personal history of colon polyps; Z97.4 Presence of external hearing-aid; Z98.1 Arthrodesis status; Z96.1 Presence of intraocular lens; Z98.41 Cataract extraction status, right eye; Z98.42 Cataract extraction status, left eye; Z82.49 Family history of ischemic heart disease and other diseases of the circulatory system; Z80.9 Family history of malignant neoplasm, unspecified
CPT/HCPCS: 27447; 97116; 97161; 64999; 64448; 76942; 80048 ×2; 85025; 85610; 85730; 88300; 83036; 73560; G0378 ×2; C1776; C1713; C1751; J2250; J0330; J1100; J2710; J2765; J0690 ×3; J2405 ×2; J3010; J1650 ×2; J1170 ×4; J2795 ×2; J1885; J2704; J2001

== ENCOUNTER 2023-10-08 07:01 | Day surgery (SDC) | payer MEDICARE ==
[~2023-10-08 07:01] MED LIST changes: -ACETAMINOPHEN TAB 500 MG TAB PO PRN; -DEXAMETHASONE SOD PHOSPHATE 4 MG/ML 1 ML VIAL IV ONE; -MELOXICAM 7.5 MG TAB PO PRN; -ONDANSETRON 4 MG/2 ML VIAL IVP ONE; -TRANEXAMIC ACID IN NACL,ISO-OS 1,000 MG in SALINE 1 100ML.BAG IVPB PRN
[2023-10-08] MEDS: IV FLUID CONTINUATION 1,000 ML IV ONE ×2 (07:22→08:16)
[2023-10-08] MEDS: LACTATED RINGERS 1,000 ML IV SCH (07:29)
[2023-10-08 07:45] VITALS: TEMP 97.1
[2023-10-08 08:04] LABS: Glucose,Whole Blood 129 mg/dL (70-110)
[2023-10-08] MEDS ORDERED: PROPOFOL 10 MG/ML 20 ML VIAL IV ONE (08:16)
--- NOTE | 2023-10-08 08:34 | P.PCN ---
Date of Procedure: 10/08/23 Procedure(s) Performed: BRIEF HISTORY: Patient is a 72-year-old pleasant white male scheduled for an elective colonoscopy as a part of evaluation of altered bowel movements with intermittent rectal bleeding for the last 2 years duration. PROCEDURE PERFORMED: Colonoscopy with biopsy. PREOPERATIVE DIAGNOSIS: Change in bowel habits and intermittent rectal bleeding. IV sedation per Anesthesia. PROCEDURE: After informed consent was obtained, the patient, was brought into the endoscopy unit. IV sedation was administered by Anesthesia under continuous monitoring. Digital rectal examination was normal. Initially the Olympus CF-160 flexible video colonoscope was then inserted in the rectum, gradually advanced into the cecum without any difficulty. Careful examination was performed as the scope was gradually being withdrawn. Ileocecal valve and the appendiceal orifice were visualized and appeared normal. Prep was excellent. Mucosa of the cecum, appeared normal. Descending colon there was a 3 mm polyp that was removed by cold biopsy. Rest of the ascending colon, transverse colon, descending colon, sigmoid colon, and rectum appeared normal. Scattered sigmoid diverticulosis seen. Retroflexion was performed in the rectum and small internal hemorrhoids s were seen. Biopsies were done from the ascending and descending colon rule out microscopic/collagenous colitis. The patient tolerated the procedure well. IMPRESSION: 3 mm ascending colon polyp status post cold biopsy Scattered diverticulosis Monitoring hemorrhoids RECOMMENDATIONS: Findings of this examination were discussed with the patient as well as his family. He was advised to follow-up with the biopsy results. If the biopsy reveals adenoma he can have repeat colonoscopy in 5 years..
[2023-10-08 09:01] VITALS: BP 114/63; PULSE 67; RESP 16
== END 2023-10-08 09:14 | disposition home or self-care (01) ==
LOC: ORWHC2ENDO 07:01
PROVIDERS: ATTEND Internal Medicine Gastroenterology
DX: D12.2 Benign neoplasm of ascending colon (principal); K57.30 Diverticulosis of large intestine without perforation or abscess without bleeding; K64.8 Other hemorrhoids; I10 Essential (primary) hypertension; E78.5 Hyperlipidemia, unspecified; G47.33 Obstructive sleep apnea (adult) (pediatric); E11.9 Type 2 diabetes mellitus without complications; N40.0 Benign prostatic hyperplasia without lower urinary tract symptoms; N28.9 Disorder of kidney and ureter, unspecified; Z79.82 Long term (current) use of aspirin; Z79.4 Long term (current) use of insulin; Z98.890 Other specified postprocedural states
CPT/HCPCS: 88305; 45380; J2704